=== PATIENT | male | born 1950 | race Caucasian/White ===

== ENCOUNTER → 2016-09-16 | Outpatient (CLI) | payer BC ==
[~2016-09-16] VITALS: Ht 182.9 cm; Wt 249.4 kg
[~2016-09-16] MED LIST: ACET-1311 PO; ASPCH81X PO; BISA10SU38 PR; CHOL200010 PO; DILT120C68 PO; DOCU100C31 PO; ENOX30IN4 SQ; ESCI1TAB10 PO; HYDR25TA4 PO; INSUINJ14 SC; LVMI SQ; ONDA4TAB46 PO; OXYC5TAB PO; PRLSR20 PO; SIME80CH PO
[2016-09-16 15:19] VITALS: BP 138/82; PULSE 78; Ht 182.9 cm; Wt 249.4 kg
== END | disposition home or self-care (01) ==
LOC: C.NEUR 15:03
PROVIDERS: ATTEND Physician Assistant
DX: G47.30 Sleep apnea, unspecified (principal)

== ENCOUNTER → 2017-08-08 | Outpatient (CLI) | payer BC ==
[2017-08-08 12:25] LABS: HEMOGLOBIN A1C 7.7 % (4.5-5.6)
[2017-08-08 12:30] LABS: BLOOD UREA NITROGEN 17 mg/dl (7-18); CALCIUM 8.7 mg/dl (8.5-10.1); CARBON DIOXIDE 27 mmol/L (21-32); CREATININE 1.04 mg/dl (0.60-1.40); GLUCOSE 134 mg/dl (70-99); POTASSIUM 4.3 mmol/L (3.5-5.1); SODIUM 138 mmol/L (136-145)
== END | disposition home or self-care (01) ==
LOC: C.LABBFT 08:37
PROVIDERS: ATTEND Internal Medicine
DX: E11.40 Type 2 diabetes mellitus with diabetic neuropathy, unspecified (principal); I10 Essential (primary) hypertension

== ENCOUNTER 2024-04-26 13:36 | Inpatient (IN) ==
[2024-04-26] MEDS: METOPROLOL TARTRATE 1 MG/ML VIAL IV STA ×2 (14:47→15:53)
--- NOTE | 2024-04-26 15:00 | Emergency Department Note ---
Impression & Plan Atrial fibrillation with rapid ventricular response, Pulmonary vascular congestion ED Provider Note CHIEF COMPLAINT: Heaviness in the chest, shortness of breath HISTORY OF PRESENT ILLNESS: This 73-year-old male patient with past medical history diabetic foot wound, diabetic neuropathy, diabetic retinopathy, obesity, uncontrolled type 2 diabetes, dilatation of the ascending aorta, aortic stenosis, BPH, obstructive sleep apnea, hypertension, hiatal hernia with GERD, dyslipidemia and depression presents to the emergency department with complaints of a heaviness in the chest and a "blockage" that he can cough up sometimes. He states this has been going on for several days and he can no longer deal with it. Patient is complaining of constipation. He is not having any fevers, chills, abdominal pain or vomiting. REVIEW OF SYSTEMS: A review of systems was performed with positives and pertinent negatives listed in the history of present illness. 10 systems were reviewed and are otherwise negative. ALLERGIES: see below MEDICATIONS: see below PMH: see below SOCIAL HISTORY: see below DDx: Cardiac arrhythmia, dehydration, pneumonia, congestive heart failure, atrial fibrillation, electrolyte abnormality, acute coronary syndrome among others. PHYSICAL EXAM: Vital signs reviewed. General: Chronically ill-appearing 73-year-old male, in no significant distress. HEENT: No scleral icterus, PERRLA, neck supple. Moist mucous membranes Cardiovascular: Rapid and irregular Pulmonary: Minimal air movement bilaterally, dry cough. Abdomen: Soft, nontender, nondistended, positive bowel sounds. Musculoskeletal: Atraumatic, minimal peripheral edema. Neurologic: Patient awake alert and oriented x 3, speech is clear Skin: Warm, dry, no rash EMERGENCY DEPARTMENT COURSE/MDM: This patient was evaluated and appeared to be in some respiratory discomfort. Chest x-ray was performed and reveals bilateral pleural effusions. He has noted to be in a rapid atrial fibrillation on the clinical research monitor. IV access was obtained and laboratory work was drawn. EKG reveals rapid atrial fibrillation with a left axis deviation. Patient was medicated with metoprolol 5 mg x 2 with some improvement in heart rate. He was given 40 mg of IV Lasix. Patient was then given 10 mg of IV Cardizem for additional rate control. patient's laboratory work reveals a slight elevation of high sensitivity troponin, likely demand mediated. COVID is positive. Patient's case was discussed with the hospitalist service for admission and further management. Patient was made aware of the plan and agreed. MONITORING: An order for cardiac monitoring was placed and the patient is noted to be in a rapid atrial fibrillation at 153 beats per minute. RADIOLOGY: Chest x-ray: IMPRESSION: 1. Cardiomegaly with interstitial pulmonary edema. 2. Layering pleural effusions with bibasilar consolidation, right greater than left. EKG: To my interpretation reveals rapid atrial fibrillation 150 bpm, left axis deviation with previous inferior and anterior lateral infarct. QTc of 530. PVC versus aberrancy. DISPOSITION:Admission I have personally spent greater than 32 minutes of critical care time in the direct management of this patient. This includes bedside care, interpretation of diagnostic studies, and testing, discussion with consultants, patient, and family members, and other required patient management activities. This 32 minutes is in excess of all separately billable procedures. Past Med/Surg History Problem List (Updated 05/03/24 @ 06:38 by Shireen Cobb MD) Pulmonary vascular congestion (Acute) Atrial fibrillation with rapid ventricular response (Acute) Aspiration into airway Apnea, sleep Ascending aorta dilatation H/O Ross procedure Bicuspid aortic valve Hypoxia COVID-19 Acute CHF New onset a-fib Diabetic ulcer of toe of right foot (Acute) Acquired hammer toe (Chronic) Diabetic ulcer of toe of left foot (Acute) Traumatic open wound of right lower leg (Acute) Traumatic open wound of left lower leg (Acute) Diabetic peripheral neuropathy associated with type 2 diabetes mellitus Non-proliferative diabetic retinopathy, both eyes Pre-ulcerative calluses Loss of protective sensation of skin of foot Personal history of diabetic foot ulcer Obesity History of colon polyps Uncontrolled type 2 diabetes mellitus with insulin therapy (Chronic) Mild dilation of ascending aorta Aortic stenosis (Chronic) follows Dr. Sevilla at [facility] loc w urin obs/LUTS MAGY (obstructive sleep apnea) cpap non-compliant Ulnar neuropathy of right upper extremity (Acute) Hypertension (Chronic) Hiatal hernia (Acute) Gastroesophageal reflux disease (Chronic) Dyslipidemia (Acute) Depression (Chronic) Medical History Vitamin D deficiency History of stroke (~1997) happened during valve surgery 1997> minimal left side weakness > doesn't follow neuro Osteoarthritis Vertigo Hearing loss left ear Ambulatory dysfunction "my legs are stiff" has a limp Allergic rhinitis Surgical History Hx of amputation (~04/2020) left toe / diabetic ulcer Hx of colonoscopy with polypectomy Hx of aortic valve replacement using Ross procedure (~1997) [facility] History of tooth extraction full dentures History of carpal tunnel release right History of appendectomy Hx of fracture of leg (~2015) right leg with repair eu to fall from ladder Hx of elbow surgery left from [facility] Hx of repair of right rotator cuff History of cardiac cath (~1997) @ [facility], no stents, has not seen Dr. Sevilla in a few years History of cholecystectomy Family History Mother Diabetes Valvular heart disease Heart disease Hypertension Brother Coronary heart disease Diabetes Father Hypertension Prostate cancer Denies family history of Ovarian cancer Breast cancer Colorectal cancer Social History Smoking Status: Unknown if ever smoked Tobacco Type: Cigarettes Age Started Using Tobacco: 18; Age Quit Using Tobacco: 44; packs per day: 0.25; Cigarettes Per Day: 1/2 ppd; Second Hand Exposure: No; Do You Dip or Chew Tobacco: No; Hx Alcohol Use: No Hx Substance Use: No Preferred Language: Palestinian Communication Ability: Effective Visual Impairment: Partially Limited Hearing Ability: Normal Blockmason Required: No Beliefs That Will Affect Care: None marital status: Current Living Situation: Spouse current occupational status: retired Feels Safe at Home: Yes Childhood Exposure to Second-Hand Smoke: No Diet: regular caffeine: Yes during the past year weight has: remained stable Dental Care, Regularly: No Physical Activity Frequency: Daily Seatbelt Use: never Assistive Devices: None Allergies Allergies Allergy/AdvReac Type Severity Reaction Status Date / Time metformin Allergy Mild DOESNT Verified 04/26/24 15:41 REMEMBER repaglinide Allergy Mild DOESNT Verified 04/26/24 15:41 REMEMBER simvastatin Allergy Mild DOESNT Verified 04/26/24 15:41 REMEMBER Iodinated Contrast Media Allergy Unknown hives, Verified 04/26/24 15:41 sick to stomach Home Meds Home Medications Medication Instructions Recorded Confirmed aspirin 81 mg tablet 81 mg PO PM #30 tabs 01/06/19 04/26/24 lancets (OneTouch UltraSoft #50 ea 01/06/19 04/21/24 Lancets) pen needle, diabetic 31 gauge x #30 ea 01/06/19 04/21/2416" (BD Ultra-Fine Short Pen Needle) atorvastatin 80 mg tablet 80 mg PO QPM 07/18/23 04/26/24 Previous Rx's Medication Instructions Recorded blood sugar diagnostic #450 ea 05/29/21 ergocalciferol (vitamin D2) 1,250 50,000 unit PO WEEKLY #12 caps 01/06/23 mcg (50,000 unit) capsule diltiazem HCl 240 mg capsule,24 240 mg PO DAILY #90 caps 01/06/24 hr,extended release fluoxetine 20 mg capsule 20 mg PO QAM #90 caps 01/06/24 gabapentin 300 mg capsule 300 mg PO BID 90 days #180 caps 01/06/24 hydrochlorothiazide 25 mg tablet 25 mg PO QAM #90 tabs 01/06/24 lisinopril 40 mg tablet 40 mg PO QAM #90 tabs 01/06/24 pantoprazole 40 mg tablet,delayed 40 mg PO QAM #90 tabs 01/06/24 release flash glucose sensor (FreeStyle #2 ea 01/07/24 Veronika 2 Sensor kit) insulin aspart U-100 100 unit/mL See Rx Instructions subcut UD 90 01/13/24 (3 mL) subcutaneous pen (Novolog days #120 mL FlexPen U-100 Insulin aspart) insulin glargine U-300 conc 300 70 unit (0.2333 mL) subcut BID #42 04/12/24 unit/mL (3 mL) subcutaneous pen mL (Toujeo Max U-300 SoloStar) Results & Data (ED) Vital Signs Vital Signs - 24 hr 04/26/24 13:48 04/26/24 14:47 04/26/24 14:54 Temperature 36.1 C L Temperature Source Temporal Artery Scan Pulse Rate 107 H 154 H Pulse Rhythm Respiratory Rate 20 Blood Pressure 153/74 H 154/105 H Blood Pressure Mean 100 Pulse Oximetry 94 93 Oxygen Delivery Method Room Air Room Air Sepsis Recent Fever Within 48 Hours No Sepsis New/Unexplained Change in Mental Status No Sepsis Action Taken by Nursing No Action Required 04/26/24 14:54 Temperature Temperature Source Pulse Rate 138 H Pulse Rhythm Regular Respiratory Rate 22 Blood Pressure Blood Pressure Mean Pulse Oximetry 93 Oxygen Delivery Method Room Air Sepsis Recent Fever Within 48 Hours Sepsis New/Unexplained Change in Mental Status Sepsis Action Taken by Senior Care Medications Current Medication List: was personally reviewed by me Laboratory Data Attestation: I reviewed the patient's lab results. 05/02/24 07:54 05/02/24 07:54 Lab Results 04/26/24 04/26/24 04/26/24 Range/Units 14:18 14:30 16:24 WBC 10.31 (4.8-10.8) K/ul RBC 5.02 (4.70-6.10) M/uL Hgb 14.4 (14.0-18.0) g/dl Hct 42.4 (42.0-52.0) % MCV 84.5 (80.0-100.0) fL MCH 28.7 (25.0-34.0) pg MCHC 34.0 (32.0-36.0) g/dL RDW Std Deviation 42.4 (36.4-46.3) fL RDW Coeff of Vnadana 13.8 (11.5-14.5) % Plt Count 279 (130-400) K/uL MPV 11.5 (9.4-12.4) fL Immature Gran % (Auto) 0.4 % Neut % (Auto) 69.3 % Lymph % (Auto) 22.8 % Hale % (Auto) 6.5 % Eos % (Auto) 0.8 % Baso % (Auto) 0.2 % Neut # (Auto) 7.15 H (1.40-6.50) K/uL Lymph # (Auto) 2.35 (1.20-3.40) K/uL Hale # (Auto) 0.67 H (0.11-0.59) K/uL Eos # (Auto) 0.08 (0.00-0.50) K/uL Baso # (Auto) 0.02 (0.00-0.20) K/uL Immature Gran # (Auto) 0.04 (0.01-0.20) K/uL PT 11.8 (9.0-12.0) Seconds INR 1.1 (0.9-1.1) APTT 26 (21-31) Seconds PTT Ratio 1.0 Sodium 138 (136-145) mmol/L Potassium 3.7 (3.5-5.1) mmol/L Chloride 102 (98-107) mmol/L Carbon Dioxide 25 (21-32) mmol/L Anion Gap 11 (3-11) BUN 23 (6-23) mg/dl Creatinine 1.02 (0.6-1.4) mg/dl Est Cr Clr Drug Dosing 86.8 ml/min eGFR 78.58 BUN/Creatinine Ratio 22.5 H (10-20) Glucose 95 (70-99(Fasting)) mg/dl Calcium 9.1 (8.6-10.3) mg/dl Total Bilirubin 1.4 H (0.2-1.0) mg/dl AST 41 H (13-39) U/L ALT 50 (7-52) U/L Alkaline Phosphatase 101 (34-104) U/L Troponin I High Sens 26.6 H 27.8 H (0-20) pg/ml C-Reactive Protein 2.83 H (0-0.5) mg/dl Total Protein 7.6 (6.0-8.3) gm/dl Albumin 4.2 (3.4-5.0) gm/dl Globulin 3.4 (2.5-4.0) gm/dl Albumin/Globulin Ratio 1.2 (0.9-2) SARS-CoV-2 (PCR) POSITIVE A (Negative) Influenza Type A (PCR) Negative (Neg) Influenza Type B (PCR) Negative (Neg) RSV (RT-PCR) Negative (Neg) Administered Medications Acetaminophen (Acetaminophen 500 Mg Tab) 500 mg PO Q4H PRN PRN Reason: Fever or headache Stop: 05/26/24 19:31 Last Admin: 04/28/24 22:28 Dose: 500 mg Documented By: Admin: 04/27/24 20:33 Dose: 500 mg Documented By: MACEY Apixaban (Apixaban 5 Mg Tablet) 5 mg PO BID [facility] Stop: 05/30/24 19:59 Last Admin: 05/02/24 20:37 Dose: 5 mg Documented By: Admin: 05/02/24 08:25 Dose: 5 mg Documented By: [facility] Admin: 05/01/24 20:36 Dose: 5 mg Documented By: Admin: 05/01/24 08:08 Dose: 5 mg Documented By: Admin: 04/30/24 20:33 Dose: 5 mg Documented By: AAAmparo Admin: 04/30/24 20:30 Dose: 5 mg Documented By: AAAmparo Aspirin (Aspirin 81 Mg Ectab) 81 mg PO PM ADDI Stop: 05/26/24 20:59 Last Admin: 05/02/24 20:37 Dose: 81 mg Documented By: Admin: 05/01/24 20:36 Dose: 81 mg Documented By: Admin: 04/30/24 20:27 Dose: 81 mg Documented By: Admin: 04/29/24 20:31 Dose: 81 mg Documented By: Admin: 04/28/24 20:11 Dose: 81 mg Documented By: Admin: 04/27/24 20:34 Dose: 81 mg Documented By: Admin: 04/26/24 21:52 Dose: Not Given Documented By: HARMEET Atorvastatin Calcium (Atorvastatin 40 Mg Tab) 80 mg PO QPM ADDI Stop: 05/26/24 20:59 Last Admin: 05/02/24 20:37 Dose: 80 mg Documented By: Admin: 05/01/24 20:36 Dose: 80 mg Documented By: Admin: 04/30/24 20:28 Dose: 80 mg Documented By: Admin: 04/29/24 20:31 Dose: 80 mg Documented By: Admin: 04/28/24 20:11 Dose: 80 mg Documented By: Admin: 04/27/24 20:33 Dose: 80 mg Documented By: Admin: 04/26/24 21:53 Dose: Not Given Documented By: HARMEET Azithromycin (Azithromycin 250 Mg Tab) 500 mg PO QAM ADDI Stop: 05/05/24 08:59 Last Admin: 05/02/24 08:26 Dose: 500 mg Documented By: [facility] Admin: 05/01/24 08:10 Dose: 500 mg Documented By: [facility] Admin: 04/30/24 08:05 Dose: 500 mg Documented By: JOSE Benzonatate (Benzonatate 100 Mg Capsule) 100 mg PO TID ADDI Stop: 05/28/24 13:59 Last Admin: 05/02/24 20:38 Dose: 100 mg Documented By: AAAmparo Admin: 05/02/24 12:04 Dose: 100 mg Documented By: [facility] Admin: 05/02/24 08:25 Dose: 100 mg Documented By: [facility] Admin: 05/01/24 20:36 Dose: 100 mg Documented By: Admin: 05/01/24 12:20 Dose: 100 mg Documented By: Admin: 05/01/24 08:10 Dose: 100 mg Documented By: Admin: 04/30/24 20:28 Dose: 100 mg Documented By: Admin: 04/30/24 14:39 Dose: 100 mg Documented By: K Admin: 04/30/24 08:07 Dose: 100 mg Documented By: Admin: 04/29/24 20:37 Dose: 100 mg Documented By: Admin: 04/29/24 13:36 Dose: 100 mg Documented By: Admin: 04/29/24 10:02 Dose: 100 mg Documented By: Admin: 04/28/24 20:11 Dose: 100 mg Documented By: Admin: 04/28/24 15:55 Dose: 100 mg Documented By: SAMUEL Fluoxetine HCl (Fluoxetine Hcl 20 Mg Cap) 20 mg PO QAM ADDI Stop: 05/27/24 08:59 Last Admin: 05/02/24 08:27 Dose: 20 mg Documented By: Admin: 05/01/24 08:10 Dose: 20 mg Documented By: Admin: 04/30/24 08:06 Dose: 20 mg Documented By: Admin: 04/29/24 10:02 Dose: 20 mg Documented By: MARIA ELENA Admin: 04/28/24 08:33 Dose: 20 mg Documented By: Admin: 04/27/24 09:16 Dose: 20 mg Documented By: SAMUEL Furosemide (Furosemide 20 Mg Tab) 20 mg PO QAM ADDI Stop: 05/30/24 14:44 Last Admin: 05/02/24 08:25 Dose: 20 mg Documented By: Admin: 05/01/24 08:08 Dose: 20 mg Documented By: Admin: 04/30/24 14:55 Dose: 20 mg Documented By: JOSE Gabapentin (Gabapentin 300 Mg Cap) 300 mg PO BID ADDI Stop: 05/26/24 20:59 Last Admin: 05/02/24 20:38 Dose: 300 mg Documented By: AAAmparo Admin: 05/02/24 08:25 Dose: 300 mg Documented By: Admin: 05/01/24 20:36 Dose: 300 mg Documented By: Admin: 05/01/24 08:09 Dose: 300 mg Documented By: Admin: 04/30/24 20:28 Dose: 300 mg Documented By: Admin: 04/30/24 08:06 Dose: 300 mg Documented By: Admin: 04/29/24 20:31 Dose: 300 mg Documented By: Admin: 04/29/24 10:02 Dose: 300 mg Documented By: Admin: 04/28/24 20:11 Dose: 300 mg Documented By: Admin: 04/28/24 08:34 Dose: 300 mg Documented By: Admin: 04/27/24 20:34 Dose: 300 mg Documented By: Admin: 04/27/24 09:16 Dose: 300 mg Documented By: Admin: 04/26/24 21:53 Dose: Not Given Documented By: HARMEET Guaifenesin (Guaifenesin 600 Mg Tabcr) 1,200 mg PO Q12 PRN PRN Reason: Congestion Stop: 05/27/24 20:59 Last Admin: 05/01/24 08:09 Dose: 1,200 mg Documented By: Admin: 04/28/24 20:11 Dose: 1,200 mg Documented By: Admin: 04/27/24 22:05 Dose: 1,200 mg Documented By: MACEY Insulin Aspart (Insulin Aspart Per Unit Charge) 0 units SC ACHS ADDI Stop: 05/26/24 20:59 Last Admin: 05/02/24 20:29 Dose: 8 units Documented By: CHIRAG Co-signed By: SAYRA Admin: 05/02/24 17:22 Dose: 8 units Documented By: NUHA Co-signed By: RENETTA Admin: 05/02/24 11:54 Dose: 18 units Documented By: NUHA Co-signed By: DTT Admin: 05/02/24 08:18 Dose: 6 units Documented By: NUHA Co-signed By: DTT Admin: 05/01/24 20:08 Dose: 13 units Documented By: CHIRAG Co-signed By: EMILY Admin: 05/01/24 16:47 Dose: 13 units Documented By: NUHA Co-signed By: MART Admin: 05/01/24 12:28 Dose: 8 units Documented By: NUHA Co-signed By: ENS Admin: 05/01/24 08:20 Dose: 8 units Documented By: NUHA Co-signed By: MARKY Admin: 04/30/24 20:16 Dose: 3 units Documented By: CHIRAG Co-signed By: HDC Admin: 04/30/24 16:55 Dose: 9 units Documented By: JOSE Co-signed By: AM Admin: 04/30/24 11:58 Dose: 15 units Documented By: K Co-signed By: AM Admin: 04/30/24 08:59 Dose: 11 units Documented By: JOSE Co-signed By: KJS Admin: 04/29/24 22:02 Dose: 9 units Documented By: AAL Co-signed By: MPC Admin: 04/29/24 16:56 Dose: 13 units Documented By: MTN Co-signed By: MS Admin: 04/29/24 12:47 Dose: Not Given Documented By: Admin: 04/29/24 07:53 Dose: Not Given Documented By: Admin: 04/28/24 19:59 Dose: 6 units Documented By: MACEY Co-signed By: BEBETO Admin: 04/28/24 17:24 Dose: 5 units Documented By: SAMUEL Co-signed By: OPHELIA Admin: 04/28/24 12:17 Dose: 5 units Documented By: SAMUEL Co-signed By: LAZARO Admin: 04/28/24 08:33 Dose: Not Given Documented By: Admin: 04/27/24 20:43 Dose: 7 units Documented By: MACEY Co-signed By: ROD Admin: 04/27/24 16:44 Dose: 8 units Documented By: SAMUEL Co-signed By: DTT Admin: 04/27/24 11:58 Dose: 4 units Documented By: SAMUEL Co-signed By: MANUEL Admin: 04/27/24 08:33 Dose: Not Given Documented By: Admin: 04/26/24 20:29 Dose: Not Given Documented By: HARMEET Insulin Glargine (Lantus Per Unit Charge) 15 units SQ BID ADDI Stop: 06/01/24 08:59 Last Admin: 05/02/24 20:30 Dose: 15 units Documented By: CHIRAG Co-signed By: CF Admin: 05/02/24 08:19 Dose: 15 units Documented By: TMH Co-signed By: DTT Levalbuterol HCl (Levalbuterol Hcl 0.63 Mg/3 Ml Neb) 0.63 mg NEB Q6H PRN; Protocol PRN Reason: Shortness Of Breath Or Wheezing Stop: 05/27/24 11:29 Last Admin: 04/29/24 13:03 Dose: 0.63 mg Documented By: Admin: 04/28/24 22:34 Dose: 0.63 mg Documented By: Admin: 04/28/24 09:11 Dose: 0.63 mg Documented By: LYNN Losartan Potassium (Losartan Potassium 25 Mg Tab) 12.5 mg PO QPM [facility] Stop: 05/30/24 20:59 Last Admin: 05/02/24 20:38 Dose: 12.5 mg Documented By: Admin: 05/01/24 20:36 Dose: 12.5 mg Documented By: Admin: 04/30/24 20:28 Dose: 12.5 mg Documented By: CHIRAG Metoclopramide HCl (Metoclopramide Hcl Inj 5 Mg/Ml 2 Ml Vial) 10 mg IV Q6H PRN PRN Reason: Nausea Stop: 05/27/24 08:29 Last Admin: 04/27/24 08:45 Dose: 10 mg Documented By: SAMUEL Metoprolol Succinate (Metoprolol Succ 50mg Ext Rel Tab) 100 mg PO BID [facility] Stop: 06/01/24 20:59 Last Admin: 05/02/24 20:41 Dose: 100 mg Documented By: CHIRAG Ondansetron HCl (Ondansetron Inj 2 Mg/Ml 2 Ml Vial) 4 mg IV Q4H PRN PRN Reason: Nausea Stop: 05/26/24 20:57 Last Admin: 04/27/24 06:03 Dose: 4 mg Documented By: Admin: 04/26/24 21:04 Dose: 4 mg Documented By: HARMEET Pantoprazole Sodium (Pantoprazole 40 Mg Tab) 40 mg PO QAM [facility] Stop: 05/27/24 08:59 Last Admin: 05/02/24 08:25 Dose: 40 mg Documented By: Admin: 05/01/24 08:11 Dose: 40 mg Documented By: Admin: 04/30/24 08:07 Dose: 40 mg Documented By: Admin: 04/29/24 10:02 Dose: 40 mg Documented By: MARIA ELENA Admin: 04/28/24 08:34 Dose: 40 mg Documented By: Admin: 04/27/24 09:16 Dose: 40 mg Documented By: SAMUEL Polyethylene Glycol (Polyethylene (Miralax) 17 Gm Pack) 17 gm PO DAILY PRN PRN Reason: Constipation Stop: 05/27/24 20:46 Last Admin: 04/28/24 20:11 Dose: 17 gm Documented By: Admin: 04/27/24 22:06 Dose: 17 gm Documented By: MACEY Sodium Zirconium Cyclosilicate (Sodium Zirconium Cyclosilicate 10 Gm Packet) 10 gm PO DAILY@1100 [facility] Stop: 06/01/24 10:59 Last Admin: 05/02/24 12:03 Dose: 10 gm Documented By: TM Discontinued Medications Albuterol (Albut/Ipratrop 3mg/0.5mg Neb 3 Ml Vial) 3 ml NEB NOW STA; Protocol Stop: 04/26/24 22:45 Last Admin: 04/26/24 23:00 Dose: Not Given Documented By: ADRIEN Amiodarone HCl/Dextrose (Amiodarone 150mg / 100ml D5w) Confirm Administered Dose 150 mg IV .STK-MED ONE Stop: 04/26/24 19:43 Last Admin: 04/26/24 19:42 Dose: 16.7 mg Documented By: HARMEET Co-signed By: THERESE Amiodarone HCl/Dextrose (Amiodarone 360mg / 200ml D5w) Confirm Administered Dose 360 mg IV .STK-MED ONE Stop: 04/26/24 19:44 Last Admin: 04/26/24 19:52 Dose: 360 mg Documented By: HARMEET Co-signed By: THERESE Azithromycin (Azithromycin 250 Mg Tab) [facility] [place] Stop: 04/29/24 12:01 Last Admin: 04/29/24 12:22 Dose: 500 mg Documented By: MARIA ELENA Bisacodyl (Bisacodyl 10 Mg Supp) 10 mg ID NOW STA Stop: 04/29/24 09:31 Last Admin: 04/29/24 10:00 Dose: 10 mg Documented By: MARIA ELENA Diltiazem HCl (Diltiazem Hcl 5 Mg/Ml 5 Ml Vial) 10 mg IV NOW STA Stop: 04/26/24 16:28 Last Admin: 04/26/24 16:41 Dose: 10 mg Documented By: EDUARDO Co-signed By: RITESH Furosemide (Furosemide 40 Mg/4 Ml Vial) 40 mg IV ONE ONE Stop: 04/26/24 15:37 Last Admin: 04/26/24 15:53 Dose: 40 mg Documented By: EDUARDO Furosemide (Furosemide 40 Mg/4 Ml Vial) 40 mg IV BID ADDI Stop: 05/26/24 20:59 Last Admin: 04/27/24 08:26 Dose: 40 mg Documented By: Admin: 04/26/24 21:57 Dose: 40 mg Documented By: HARMEET Furosemide (Furosemide 40 Mg/4 Ml Vial) 40 mg IV DAILY ADDI Stop: 05/28/24 08:59 Last Admin: 04/28/24 08:34 Dose: 40 mg Documented By: SAMUEL Furosemide (Furosemide 40 Mg/4 Ml Vial) 40 mg IV ONE ONE Stop: 05/02/24 10:58 Last Admin: 05/02/24 12:03 Dose: 40 mg Documented By: NUHA Heparin Sodium (Porcine) (Heparin Sod (Porcine) 1000 Unit/Ml) 7,000 units IV ONE ONE Stop: 04/26/24 17:46 Last Admin: 04/26/24 17:49 Dose: 7,000 units Documented By: EDUARDO Co-signed By: Heparin Sodium/Dextrose (Heparin Iv Adult Wt-Based Standard W/ Initial Bolus Protocol) 1 each IV NOW STA; Protocol Stop: 04/26/24 17:04 Last Admin: 04/26/24 17:52 Dose: Not Given Documented By: EDUARDO Heparin Sodium/Dextrose (Heparin Sodium/Dextrose) 25,000 units in 500 mls @ 29 mls/hr IV .[id number] ADDI; Protocol Stop: 05/26/24 17:29 Last Titration: 04/30/24 17:56 Dose: Infused Documented By: JOSE Co-signed By: MARY Admin: 04/30/24 07:58 Dose: 1,450 units/hr, 29 mls/hr Documented By: JOSE Co-signed By: AM Titration: 04/30/24 07:13 Dose: Infused Documented By: CHIRAG Co-signed By: JOSE Titration: 04/29/24 19:08 Dose: 1,450 units/hr, 29 mls/hr Documented By: MARIA ELENA Co-signed By: CHIRAG Admin: 04/29/24 13:32 Dose: 1,450 units/hr, 29 mls/hr Documented By: MARIA ELENA Co-signed By: DTT Titration: 04/29/24 13:14 Dose: Infused Documented By: MTN Co-signed By: DTT Titration: 04/29/24 10:16 Dose: 1,450 units/hr, 29 mls/hr Documented By: MTN Co-signed By: DTT Titration: 04/29/24 07:11 Dose: 1,450 units/hr, 29 mls/hr Documented By: MTN Co-signed By: DM Admin: 04/28/24 19:59 Dose: 1,450 units/hr, 29 mls/hr Documented By: DM Co-signed By: KRT Titration: 04/28/24 19:59 Dose: Infused Documented By: DM Co-signed By: KRT Titration: 04/28/24 18:57 Dose: 1,450 units/hr, 29 mls/hr Documented By: DM Co-signed By: CM Titration: 04/28/24 06:50 Dose: 1,450 units/hr, 29 mls/hr Documented By: CM Co-signed By: DM Admin: 04/28/24 02:47 Dose: 1,450 units/hr, 29 mls/hr Documented By: DM Co-signed By: KEK Titration: 04/28/24 02:47 Dose: Infused Documented By: DM Co-signed By: KEK Titration: 04/27/24 19:11 Dose: 1,450 units/hr, 29 mls/hr Documented By: DM Co-signed By: CM Admin: 04/27/24 10:49 Dose: 1,450 units/hr, 29 mls/hr Documented By: CM Co-signed By: MJN Titration: 04/27/24 10:49 Dose: Infused Documented By: CM Co-signed By: MJN Titration: 04/27/24 07:00 Dose: 1,450 units/hr, 29 mls/hr Documented By: CR Co-signed By: CM Titration: 04/27/24 01:20 Dose: 1,450 units/hr, 29 mls/hr Documented By: CR Co-signed By: BK Titration: 04/27/24 00:20 Dose: 0 units/hr, 0 mls/hr Documented By: CR Co-signed By: BK Admin: 04/26/24 17:46 Dose: 1,650 units/hr, 33 mls/hr Documented By: BRJ Co-signed By: MR Azithromycin 500 mg/ Sodium (Chloride) 255 mls @ 127.5 mls/hr IV Q24H ADDI Stop: 04/28/24 17:14 Last Infusion: 04/27/24 19:06 Dose: Infused Documented By: Admin: 04/27/24 16:59 Dose: 127.5 mls/hr Documented By: Infusion: 04/26/24 20:31 Dose: Infused Documented By: Admin: 04/26/24 18:31 Dose: 127.5 mls/hr Documented By: EDUARDO Amiodarone HCl/Dextrose (Nexterone / D5w) 360 mg in 200 mls @ 16.667 mls/hr IV .Q12H ADDI Stop: 05/26/24 19:31 Last Infusion: 04/27/24 11:31 Dose: Infused Documented By: SAMUEL Co-signed By: DTT Admin: 04/27/24 07:02 Dose: 0.5 mg/min, 16.7 mls/hr Documented By: HARMEET Co-signed By: SAMUEL Admin: 04/26/24 22:27 Dose: Not Given Documented By: HARMEET Ceftriaxone Sodium (Rocephin) 2,000 mg in 50 mls @ 100 mls/hr IV Q24H ADDI Stop: 05/02/24 03:29 Last Infusion: 05/01/24 04:50 Dose: Infused Documented By: AAAmparo Infusion: 05/01/24 04:34 Dose: 100 mls/hr Documented By: Infusion: 05/01/24 03:26 Dose: 0 mls/hr Documented By: Admin: 05/01/24 03:10 Dose: 100 mls/hr Documented By: Infusion: 04/30/24 05:07 Dose: Infused Documented By: Admin: 04/30/24 04:35 Dose: 100 mls/hr Documented By: Infusion: 04/29/24 03:04 Dose: Infused Documented By: Admin: 04/29/24 02:34 Dose: 100 mls/hr Documented By: Infusion: 04/28/24 03:28 Dose: Infused Documented By: Admin: 04/28/24 03:01 Dose: 100 mls/hr Documented By: Infusion: 04/27/24 04:28 Dose: Infused Documented By: Admin: 04/27/24 03:58 Dose: 100 mls/hr Documented By: CR Methylprednisolone 40 mg/ (Syringe) 0.64 mls @ 1.5 mls/min IV Q8H ADDI Stop: 05/29/24 08:29 Last Admin: 05/02/24 08:23 Dose: 1.5 mls/min Documented By: Admin: 05/01/24 23:34 Dose: 1.5 mls/min Documented By: Admin: 05/01/24 17:02 Dose: 1.5 mls/min Documented By: Admin: 05/01/24 08:07 Dose: 1.5 mls/min Documented By: Admin: 04/30/24 23:30 Dose: 1.5 mls/min Documented By: Admin: 04/30/24 16:33 Dose: 1.5 mls/min Documented By: Admin: 04/30/24 08:05 Dose: 1.5 mls/min Documented By: Admin: 04/29/24 23:32 Dose: 1.5 mls/min Documented By: Admin: 04/29/24 17:02 Dose: 1.5 mls/min Documented By: MARIA ELENA Admin: 04/29/24 10:00 Dose: 1.5 mls/min Documented By: MARIA ELENA Digoxin 250 mcg/ Syringe 10 mls @ 2 mls/min IV NOW ONE Stop: 04/29/24 12:04 Last Admin: 04/29/24 12:22 Dose: 2 mls/min Documented By: MARIA ELENA Digoxin 250 mcg/ Syringe 10 mls @ 2 mls/min IV NOW STA Stop: 05/01/24 09:41 Last Admin: 05/01/24 11:05 Dose: 2 mls/min Documented By: NUHA Metoprolol Succinate (Metoprolol Succ 25mg Ext Rel Tab) 75 mg PO BID ADDI Stop: 05/30/24 20:59 Last Admin: 05/02/24 08:25 Dose: 75 mg Documented By: Admin: 05/01/24 20:36 Dose: 75 mg Documented By: Admin: 05/01/24 08:08 Dose: 75 mg Documented By: Admin: 04/30/24 20:32 Dose: 75 mg Documented By: CHIRAG Metoprolol Tartrate (Metoprolol Tartrate 1 Mg/Ml Vial) 5 mg IV NOW STA Stop: 04/26/24 14:45 Last Admin: 04/26/24 14:47 Dose: 5 mg Documented By: Metoprolol Tartrate (Metoprolol Tartrate 1 Mg/Ml Vial) 5 mg IV NOW STA Stop: 04/26/24 15:37 Last Admin: 04/26/24 15:53 Dose: 5 mg Documented By: EDUARDO Metoprolol Tartrate (Metoprolol Tartrate 25 Mg Tab) 12.5 mg PO Q6 ADDI Stop: 05/27/24 11:59 Last Admin: 04/27/24 12:23 Dose: 12.5 mg Documented By: SAMUEL Metoprolol Tartrate (Metoprolol Tartrate 25 Mg Tab) 12.5 mg PO Q6H [facility] Stop: 05/27/24 17:59 Last Admin: 04/28/24 05:15 Dose: 12.5 mg Documented By: Admin: 04/27/24 23:20 Dose: 12.5 mg Documented By: Admin: 04/27/24 18:36 Dose: 12.5 mg Documented By: SAMUEL Metoprolol Tartrate (Metoprolol Tartrate 25 Mg Tab) 25 mg PO Q6H ADDI Stop: 04/30/24 13:59 Last Admin: 04/30/24 12:28 Dose: 25 mg Documented By: Admin: 04/30/24 05:00 Dose: 25 mg Documented By: Admin: 04/29/24 23:33 Dose: 25 mg Documented By: Admin: 04/29/24 18:50 Dose: 25 mg Documented By: MARIA ELENA Admin: 04/29/24 12:23 Dose: 25 mg Documented By: MARIA ELENA Admin: 04/29/24 06:20 Dose: 25 mg Documented By: Admin: 04/29/24 00:18 Dose: 25 mg Documented By: Admin: 04/28/24 17:24 Dose: 25 mg Documented By: Admin: 04/28/24 12:17 Dose: 25 mg Documented By: SAMUEL Miscellaneous (Carbohydrates For Hypoglycemia ) 15 - 30 gm PO ONCE ONE Stop: 04/28/24 06:43 Last Admin: 04/28/24 06:43 Dose: 15 gm Documented By: DM Polyethylene Glycol/Electrolytes (Lavage Solution 4000ml) 4 dose PO TODAY@1200 ADDI Stop: 05/01/24 00:00 Last Admin: 04/30/24 12:25 Dose: 4 dose Documented By: JOSE Potassium Chloride (Potassium Chloride Crtab 20 Meq Tabcr) 20 meq PO ONE ONE Stop: 04/29/24 08:03 Last Admin: 04/29/24 10:00 Dose: 20 meq Documented By: MTN Discharge Plan Visit Data Chief Complaint: Shortness of Breath/Dyspnea Stated Complaint: THINKS HE HAS COVID, SOB COUGH, VOMIT ED Provider: Shireen Cobb Discharge Problem: Atrial fibrillation with rapid ventricular response, Pulmonary vascular congestion Patient Disposition: Admitted As Inpatient Discharge Instructions Interventions: ED Discharge Assessment Last Done: 04/26/24 17:25
[2024-04-26 15:01] LABS: Basophils # (auto) 0.02 K/uL (0.00-0.20); Basophils % (auto) 0.2 %; Eosinophils # (auto) 0.08 K/uL (0.00-0.50); Eosinophils % (auto) 0.8 %; Hematocrit (blood only) 42.4 % (42.0-52.0); Hemoglobin 14.4 g/dl (14.0-18.0); Immature Granulocytes # (auto) 0.04 K/uL (0.01-0.20); Immature Granulocytes % (auto) 0.4 %; Lymphocytes # (auto) 2.35 K/uL (1.20-3.40); Lymphocytes % (auto) 22.8 %; Mean Corpuscular Hemoglobin 28.7 pg (25.0-34.0); Mean Corpuscular Volume 84.5 fL (80.0-100.0); Mean Platelet Volume 11.5 fL (9.4-12.4); Monocytes # (auto) 0.67 K/uL (0.11-0.59); Monocytes % (auto) 6.5 %; Neutrophils # (auto) 7.15 K/uL (1.40-6.50); Neutrophils % (auto) 69.3 %; Platelet Count 279 K/uL (130-400); RDW Coefficient of Variation 13.8 % (11.5-14.5); RDW Standard Deviation 42.4 fL (36.4-46.3); Red Blood Count 5.02 M/uL (4.70-6.10); White Blood Count 10.31 K/ul (4.8-10.8)
[2024-04-26 15:11] LABS: Albumin Globulin Ratio 1.2 (0.9-2); Albumin Level 4.2 gm/dl (3.4-5.0); BUN Creatinine Ratio 22.5 (10-20); Bilirubin,Total 1.4 mg/dl (0.2-1.0); Calcium 9.1 mg/dl (8.6-10.3); Creatinine Clr Calc Pharmacy 86.8 ml/min; Globulin 3.4 gm/dl (2.5-4.0); Potassium 3.7 mmol/L (3.5-5.1); Total Protein 7.6 gm/dl (6.0-8.3)
[2024-04-26 15:17] LABS: Troponin I High Sensitivity 26.6 pg/ml (0-20)
--- NOTE | 2024-04-26 15:18 | XRay Report ---
XR chest 1V portable HISTORY: 73 years-old Male Chest pain, nonspecific COMPARISON: 05/14/2022 TECHNIQUE: AP view of the chest FINDINGS: Cardiac silhouette is enlarged. Median sternotomy with pulmonary vascular congestion and interstitial coarsening. Small pleural effusions with bibasilar opacities, right greater than left. Bones appear grossly intact. Surgical anchors of the right humeral head. IMPRESSION: 1. Cardiomegaly with interstitial pulmonary edema. 2. Layering pleural effusions with bibasilar consolidation, right greater than left. ACT 112: Negative or not required by law. The above report was generated using voice recognition software. It may contain grammatical, syntax o r spelling errors. Electronically signed by: Domingo Cruz M.D. 04/26/2024 3:17 PM
[2024-04-26 15:23] LABS: INR 1.1 (0.9-1.1); Partial Thromboplastin Time 26 Seconds (21-31); Prothrombin Time 11.8 Seconds (9.0-12.0)
[2024-04-26 15:31] LABS: Influenza A virus by PCR Negative (Neg); Influenza B virus by PCR Negative (Neg); RSV by PCR Negative (Neg); SARS CoV2 RNA(COVID-19) Ceph POSITIVE (Negative)
[2024-04-26] MEDS: FUROSEMIDE 40 MG/4 ML VIAL IV ONE (15:53)
[2024-04-26] MEDS: dilTIAZem HCl 5 MG/ML 5 ML VIAL IV STA (16:41)
[2024-04-26] MEDS ORDERED: AZITHROMYCIN 500 MG VIAL IV SCH (17:15)
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
[2024-04-26 17:37] LABS: C Reactive Protein 2.83 mg/dl (0-0.5)
[2024-04-26] MEDS: HEPARIN SODIUM/DEXTROSE 25,000 UNITS/500 ML BAG IV SCH (17:46)
[2024-04-26] MEDS: HEPARIN SOD (PORCINE) 1000 UNIT/ML IV ONE (17:49)
[2024-04-26] MEDS: Heparin IV Adult Wt-Based Standard w/ INITIAL Bolus Protocol IV STA (17:52)
[2024-04-26] MEDS: AZITHROMYCIN 500 MG in SODIUM CHLORIDE 0.9% 250 ML IV SCH (18:31)
[2024-04-26] MEDS ORDERED: 0.2 MICRON FILTER SET 1 EACH IV ONE (19:32)
[2024-04-26] MEDS: AMIODARONE 150MG / 100ML D5W IV ONE (19:42)
[2024-04-26] MEDS: AMIODARONE 360MG / 200ML D5W IV ONE (19:52)
[2024-04-26] MEDS: INSULIN ASPART PER UNIT CHARGE SC SCH (20:29)
[2024-04-26] MEDS ORDERED: NON-FORMULARY MEDICATION (Insulin Glargine U-300 Conc [Toujeo Max U-300 Solostar] 300 unit SQ SCH (21:00)
[2024-04-26] MEDS: ONDANSETRON INJ 2 MG/ML 2 ML VIAL IV PRN (21:04)
[2024-04-26] MEDS: ASPIRIN 81 MG ECTAB PO SCH (21:52)
[2024-04-26] MEDS: ATORVASTATIN 40 MG TAB PO SCH (21:53)
[2024-04-26] MEDS: GABAPENTIN 300 MG CAP PO SCH (21:53)
[2024-04-26] MEDS: FUROSEMIDE 40 MG/4 ML VIAL IV SCH (21:57)
[2024-04-26] MEDS: AMIODARONE / D5W 360 MG/200 ML BAG IV SCH (22:27)
[2024-04-26] MEDS: ALBUT/IPRATROP 3MG/0.5MG NEB 3 ML VIAL NEB STA (23:00)
--- NOTE | 2024-04-26 23:02 | Communication Note ---
Date of Service: April 26, 2024 At 2045 patient complains of nausea and having dry heaves. Zofran ordered. Patient's pulse ox decreased to 80% after these dry heaves episodes. Resp iratory place patient on 7 L of high flow and patient which improved patient's saturation to 90s. VBG ordered which showed a pH of 7.35. Troponin was 28.4 which is no significant change from 1624 today. Magnesium of 1.8. Chest x-ray showed bronchitis with pneumonitis and bilateral lower lobe infiltrates. Patient is already on azithromycin. Will also start on ceftriaxone. DuoNebs ordered, though DC'd by respiratory given his elevated heart rate. May consider once A-fib with RVR has resolved. ABG and troponin added onto morning labs.
[2024-04-26 23:23] LABS: Base Excess VBG -2.4 mEq/L; HCO3 VBG 23 mmol/L; Oxygen Saturation VBG 87.4 %; PCO2 VBG 42 mmHg (38-50); PO2 VBG 58 mmHg; pH VBG 7.35 (7.36-7.41)
[2024-04-26 23:44] LABS: Magnesium 1.8 mg/dl (1.7-2.4)
[2024-04-26 23:52] LABS: Troponin I High Sensitivity 28.4 pg/ml (0-20)
[2024-04-27 00:17] LABS: ANTI-Xa, UFH(UnfractionatedHep 0.86 IU/ml (0.3-0.7)
--- NOTE | 2024-04-27 01:21 | XRay Report ---
Exam(s): XR CXR 1 VIEW EXAM: XR Chest, 1 View CLINICAL HISTORY: Reason for exam: SOB. TECHNIQUE: Frontal view of the chest. COMPARISON: Prior chest x-ray from April 26, 2024. FINDINGS: Lungs: Bronchitis with increased interstitial opacities and dense patchy opacities at the lung bases. Pleural space: Blunting of the right costophrenic angle concerning for small pleural effusion. No pneumothorax. Heart: Cardiomegaly. Mediastinum: Unremarkable. Normal mediastinal contour. Bones/joints: Status post median sternotomy with sternal wires intact. No acute fracture. IMPRESSION: Bronchitis with pneumonitis and bilateral lower lobe infiltrates. Electronically signed by: Estelle Perales MD 04/27/24 01:20 AM
[2024-04-27] MEDS: cefTRIAXone SODIUM 2,000 MG/50 ML BAG IV SCH (03:58)
--- NOTE | 2024-04-27 06:01 | Electrocardiogram Report ---
Test Reason : Blood Pressure : */* mmHG Vent. Rate : 150 BPM Atrial Rate : 166 BPM P-R Int : * ms QRS Dur : 106 ms QT Int : 336 ms P-R-T Axes : * -53 126 degrees QTcB Int : 530 ms Atrial fibrillation with rapid ventricular response with premature ventricular or aberrantly conducte d complexes Left axis deviation Inferior infarct (cited on or before 11-Aug-2002) Anterolateral infarct (cited on or before 18-Feb-2016) Abnormal ECG When compared with ECG of 18-Feb-2016 04:17, Atrial fibrillation has replaced Sinus rhythm Questionable change in initial forces of Lateral leads QRS duration has increased Confirmed by Quoc Kwon ([id number]) on 04/27/2024 6:00:39 AM Referred By: Confirmed By: Quoc Kwon
[2024-04-27 07:46] LABS: Base Excess VBG 2.7 mEq/L; HCO3 VBG 30 mmol/L; Oxygen Saturation VBG < 60.0 %; PCO2 VBG 59 mmHg (38-50); PO2 VBG < 20 mmHg; pH VBG 7.32 (7.36-7.41)
[2024-04-27 07:54] LABS: Hematocrit (blood only) 39.7 % (42.0-52.0); Hemoglobin 13.1 g/dl (14.0-18.0); Mean Corpuscular Hemoglobin 28.3 pg (25.0-34.0); Mean Corpuscular Volume 85.7 fL (80.0-100.0); Mean Platelet Volume 11.9 fL (9.4-12.4); Platelet Count 249 K/uL (130-400); RDW Standard Deviation 43.7 fL (36.4-46.3); Red Blood Count 4.63 M/uL (4.70-6.10); White Blood Count 10.68 K/ul (4.8-10.8)
[2024-04-27 08:13] LABS: BUN Creatinine Ratio 22.8 (10-20); Calcium 8.6 mg/dl (8.6-10.3); Creatinine Clr Calc Pharmacy 64.5 ml/min; Potassium 3.9 mmol/L (3.5-5.1)
[2024-04-27 08:14] LABS: ANTI-Xa, UFH(UnfractionatedHep 0.53 IU/ml (0.3-0.7)
[2024-04-27 08:20] LABS: Troponin I High Sensitivity 32.7 pg/ml (0-20)
[2024-04-27] MEDS: METOCLOPRAMIDE HCL INJ 5 MG/ML 2 ML VIAL IV PRN (08:45)
[2024-04-27] MEDS: FLUoxetine HCL 20 MG CAP PO SCH (09:16)
[2024-04-27] MEDS: PANTOprazole 40 MG TAB PO SCH (09:16)
--- NOTE | 2024-04-27 10:35 | Hospitalist Progress Note ---
Date of Service April 27, 2024 Assessment & Plan (1) New onset a-fib: Plan: Patient presents to the hospital with palpitation, worsening shortness of breath, leg swelling Found to be in A-fib with RVR, probably new onset Heart rate in the 130s to 150s in the ED, received a dose of Cardizem However blood pressure is now soft, will start IV amiodarone Obtain 2D echo, TSH Heparin by weight Consult cardiology (2) Acute CHF: Plan: Presents to the hospital with, orthopnea, PND leg swelling loss of congestive changes seen on x-ray BNP 290, and 2D echo pending Continue IV Lasix 40 mg twice daily Monitor input and output, daily weights Consult cardiology (3) COVID-19: Plan: Diagnosed about a week ago, followed outpatient with the PCP who prescribed Paxlovid overnight, desaturated Azithromycin empirically in case of bacterial superinfection, add ceftriaxone CRP mildly elevated, sputum culture, blood culture pending Urine Legionella antigen strep, mycoplasma pending (4) Diabetic peripheral neuropathy associated with type 2 diabetes mellitus: Plan: 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 Recent visit was about 10 days ago Will resume home insulin regimen Add insulin sliding scale (5) Diabetic ulcer of toe of left foot: Plan: Follows up with podiatry outpatient And also wound care Consult wound (6) Hypoxia: Plan: Most likely due to fluid overload and PNA continue oxygen suopplemenation, wean as tolerated Plan Admit to PCU with telemetry Full code DVT prophylaxis heparin Admission and Anticipated Discharge Date Admission Date: April 26, 2024 Subjective patient seen and examined, says sob is better Review of Systems Review of Systems: All systems reviewed are negative, apart from the ones contained in the history. Physical Exam Physical Exam: The patient is awake, alert and oriented 3, well developed and well nourished, normocephalic and atraumatic, lying in bed and in no acute distress. HEENT--PERRL, EOMI, mucous membranes and oropharynx mildly dry Neck--supple. No JVD. No bruits. Thyroid normal, trachea midline, no adenopathy. Heart--normal S1 and S2. No murmurs, rubs or gallops. Lungs--clear bilaterally, no respiratory distress, no accessory muscle use. Abdomen--normal bowel sounds and soft. Extremities--no cyanosis or clubbing. bilateral leg edema Dermatologic--normal skin turgor, normal color, no abnormal lymph nodes, no rash. Neurologic--cranial nerves II through XII grossly intact. Rheumatologic--normal range of motion. Psychiatric--normal affect. Results & Data Results & Data Vital Signs (Past 12 Hours) Vital Signs Temp Pulse Resp BP Pulse Ox O2 Del Method O2 Flow Rate 04/27/24 08:36 Nasal Cannula 2 04/27/24 03:16 98.1 F 96 H 18 114/60 96 High Flow Nasal Cannula 7 04/26/24 23:10 99.0 F 120 H 18 150/72 H 95 High Flow Nasal Cannula 7 PG Care Time/CCT Total # of Minutes Spent Total Time Spent with Patient: Total time spent is greater than 50% in coordination of care (as documented) at patient's floor/unit and/or counseling patient: Coding Level of Care Code 71792 SUB INP/OBS CARE 2/35MIN Diagnoses New onset a-fib I48.91 Acute CHF I50.9 COVID-19 U07.1 Diabetic peripheral neuropathy associated with type 2 diabetes mellitus E11.42 Diabetic ulcer of toe of left foot associated with type 2 diabetes mellitus, limited to breakdown of skin E11.621; L97.521 Diabetes mellitus type: type 2 Non-pressure ulcer stage: limited to breakdown of skin Hypoxia R09.02 Time Spent (min) 35 (5) Diabetic ulcer of toe of left foot Diabetes mellitus type: type 2 Non-pressure ulcer stage: limited to breakdown of skin Qualified Code(s): E11.621 - Type 2 diabetes mellitus with foot ulcer; L97.521 - Non-pressure chronic ulcer of other part of left foot limited to breakdown of skin
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
[2024-04-27] MEDS: METOPROLOL TARTRATE 25 MG TAB PO SCH ×2 (12:23→16:59)
[2024-04-27] MEDS: ACETAMINOPHEN 500 MG TAB PO PRN (20:33)
[2024-04-27] MEDS: guaiFENesin 600 MG TABCR PO PRN (22:05)
[2024-04-27] MEDS: POLYETHYLENE (MIRALAX) 17 GM PACK PO PRN (22:06)
[2024-04-28] MEDS: CARBOHYDRATES FOR HYPOGLYCEMIA PO ONE (06:43)
[2024-04-28] MEDS ORDERED: DEXTROSE 50% 50 ML SYRINGE IV PRN (07:00)
[2024-04-28] MEDS ORDERED: GLUCOSE 40% GEL 15 GM TUBE PO PRN (07:00)
[2024-04-28] MEDS ORDERED: GLUCOSE 10 TAB/TUBE PO PRN (07:00)
[2024-04-28] MEDS ORDERED: GLUCAGON FOR INJ 1 MG VIAL SQ PRN (07:00)
[2024-04-28] MEDS: FUROSEMIDE 40 MG/4 ML VIAL IV SCH (08:34)
[2024-04-28 08:41] LABS: BUN Creatinine Ratio 25.7 (10-20); Calcium 8.4 mg/dl (8.6-10.3); Creatinine Clr Calc Pharmacy 57.7 ml/min
[2024-04-28 08:49] LABS: ANTI-Xa, UFH(UnfractionatedHep 0.43 IU/ml (0.3-0.7)
[2024-04-28] MEDS: LEVALBUTEROL HCL 0.63 MG/3 ML NEB NEB PRN (09:11)
--- NOTE | 2024-04-28 11:02 | Cardiology Progress Note ---
Date of Service April 28, 2024 Assessment & Plan (1) COVID-19: (2) New onset a-fib: (3) Acute CHF: (4) Bicuspid aortic valve: (5) H/O Ross procedure: (6) Ascending aorta dilatation: (7) Apnea, sleep: Plan Complex 73-year-old male admitted with COVID-19 pneumonia, new onset acute decompensated systolic congestive heart failure with LVEF 25-30%, and new onset atrial fibrillation with rapid ventricular response of unknown duration. [id number] Score 7 points. Borderline hypotensive response to IV diltiazem noted in ER. Amiodarone prescribed on admission, discontinued due to prolonged QT interval. Rates likely being driven by acute pulmonary illness. Volume status appears normovolemic following administered IV furosemide to date. Recommendations: * Increase metoprolol tartrate to 25 mg every 6 hours * Consideration for digoxin pending response to titration of Lopressor * Continue IV heparin with eventual transition to oral Eliquis at discharge. * Hold further IV diuresis. * Add/transition to GDMT as hemodynamics permit * Monitor fluid balance, GFR, and electrolytes daily. * Continue Xopenex nebulizer treatments and Mucinex, ? IV steroids * Continue supplemental oxygen therapy * Maintain telemetry Admission and Anticipated Discharge Date Admission Date: April 26, 2024 Supervising Physician Co-Signing Physician Notes I have personally performed a history and physical examination on the patient. I have reviewed the advance practitioner's documentation, and I agree with, and take responsibility for the plan of care. 73-year-old male with complex cardiovascular history noted above presents with COVID-19 pneumonia, heart failure, and new onset atrial fibrillation with rapid ventricular response. Heart rate mildly improved with addition of metoprolol 12.5 mg every 6 hours. Amiodarone discontinued secondary to QT interval. Hypotensive response to IV diltiazem documented in the ER. Overall patient clinical status minimally improved. Continues to note cough with scant sputum production. Creatinine trending upward ti 1.5 after dose of IV furosemide. Recommendations: Titrate metoprolol to 25 mg every 6 hours. Continue IV heparin with transition to oral Eliquis at discharge. Consider addition of low-dose digoxin pending clinical response to titration of beta-alex therapy. Hold additional diuresis today. Monitor fluid balance, GFR, and electrolytes daily. Consider additional Lasix in a.m. 04/29/2024. Supportive care, treatment of COVID-19 pneumonia as per hospitalist. Possible aspiration noted. Speech eval pending. Margarito Werner DO [facility] Subjective Patient seen and examined. Chart, medications, and telemetry reviewed. May be a little better today though still feels "rough." Chest feels tight, cough with thick mucous that is very difficult to expectorate. No overt palpitations. No orthopnea, PND, or significant peripheral edema. Review of Systems Review of Systems: Complete Review of Systems is as stated above, negative, or noncontributory. Physical Exam Physical Exam: General: A&Ox3. HENT: Normocephalic. Atraumatic. Eyes: PER. Conjunctiva pink, sclera injected Neck: No JVD. Heart: Irregularly irregular at 120 bpm Lungs: Decreased. Diminished. Scattered rhonchi and faint expiratory wheezing. Abdomen: +BS. Soft. Nontender. No masses or organomegaly. Extremities: No significant edema. Limited neurological examination is without focal deficits. Pulses: Posterior tibial=1/4. Results & Data Vital Signs (Past 12 Hours) Vital Signs Temp Pulse Resp BP Pulse Ox O2 Del Method O2 Flow Rate 04/28/24 09:11 108 H 22 91 Nasal Cannula 7 04/28/24 08:38 High Flow Nasal Cannula 7 04/28/24 07:30 36.8 C 102 H 16 118/63 97 High Flow Nasal Cannula 7 04/28/24 03:59 36.7 C 114 H 18 120/80 94 High Flow Nasal Cannula 7 04/27/24 23:06 36.7 C 108 H 18 127/78 96 High Flow Nasal Cannula 7 Laboratory Results Comprehensive Metabolic Panel 04/28/24 Range/Units 08:08 Sodium 135 L (136-145) mmol/L Potassium 4.0 (3.5-5.1) mmol/L Chloride 96 L (98-107) mmol/L Carbon Dioxide 30 (21-32) mmol/L BUN 39 H (6-23) mg/dl Creatinine 1.52 H (0.6-1.4) mg/dl Glucose 128 H (70-99(Fasting)) mg/dl Calcium 8.4 L (8.6-10.3) mg/dl Intake and Output 12/17/24 12/18/24 12/18/24 22:59 06:59 14:59 Intake Total 497.633 / 1360.499 387.85 / 1360.499 Balance 497.633 / 1360.499 387.85 / 1360.499 Intake: IV 497.633 / 1360.499 387.85 / 1360.499 Azithromycin 500 mg In Sodium 255 / 255 Chloride 0.9% 250 ml @ 127.5 mls/hr IV Q24H [facility] Rx#:[id number] Heparin Sodium/Dextrose 25,000 242.633 / 855.499 337.85 / 855.499 units In 500 ml @ 1,450 UNITS/ HR 29 mls/hr IV .[id number] [facility] Rx #:[id number] cefTRIAXone SODIUM 2,000 mg In 50 / 50 50 ml @ 100 mls/hr IV Q24H [facility] Rx#:[id number] Other 0 / 0 Other: Other Intake Source 0 # Unmeasured Voids 2 Diagnostic Findings April 27, 2024 TTE: Atrial fibrillation with a rapid ventricular response. Severely reduced LV systolic function. Mildly dilated LV. LVEF 25 to 30%. Septal motion consistent with conduction abnormality. Overall, severe diffuse hypokinesis. Moderately dilated left atrium. Status post Ross procedure. No hemodynamically significant valvular aortic stenosis. Mild aortic regurgitation. Moderate mitral regurgitation. Severe tricuspid regurgitation. Estimated systolic pulmonary pressure 50 mmHg. Dilated IVC with normal inspiratory variation suggesting right atrial pressure of 8 mmHg. Telemetry: Atrial fibrillation with a rapid ventricular response with aberrantly conducted complexes and occasional premature ventricular complex
--- NOTE | 2024-04-28 11:28 | Hospitalist Progress Note ---
Date of Service April 28, 2024 Assessment & Plan (1) New onset a-fib: Plan: Patient presents to the hospital with palpitation, worsening shortness of breath, leg swelling Found to be in A-fib with RVR, probably new onset 2 D ECHO shows EF 25-30% Heparin by weight, tranasition to PO Eliquis prior to discharge Consult cardiology (2) Acute CHF: Plan: Acute HF wrEF Presents to the hospital with, orthopnea, PND leg swelling loss of congestive changes seen on x-ray BNP 290, 2D echo shows EF 25-30% Continue IV Lasix 40 mg daily Monitor input and output, daily weights Consult cardiology, appreciate recs (3) COVID-19: Plan: With hypoxia Diagnosed about a week ago, followed outpatient with the PCP who prescribed Paxlovid overnight, desaturated Azithromycin empirically in case of bacterial superinfection, add ceftriaxone CRP mildly elevated, sputum culture, blood culture pending Urine Legionella antigen strep, mycoplasma pending Now on 7l of oxygen wean as tolerated (4) Diabetic peripheral neuropathy associated with type 2 diabetes mellitus: Plan: Follows up with ux manager outpatient Recent visit was about 10 days ago Will resume home insulin regimen Add insulin sliding scale (5) Diabetic ulcer of toe of left foot: Plan: Follows up with podiatry outpatient And also wound care Consult wound (6) Hypoxia: Plan: Most likely due to fluid overload and PNA continue oxygen suopplemenation, wean as tolerated (7) Aspiration into airway: Plan: per RN, patient started coughing yesterday while eating its possible he aspirated will consult speech recheck chest x ray Plan Admit to PCU with telemetry Full code DVT prophylaxis heparin Admission and Anticipated Discharge Date Admission Date: April 26, 2024 Subjective patient seen and examined, feels a little better, but still struggling to breath and still coughing Review of Systems Review of Systems: All systems reviewed are negative, apart from the ones contained in the history. Physical Exam Physical Exam: The patient is awake, alert and oriented 3, well developed and well nourished, normocephalic and atraumatic, lying in bed and in no acute distress. HEENT--PERRL, EOMI, mucous membranes and oropharynx mildly dry Neck--supple. No JVD. No bruits. Thyroid normal, trachea midline, no adenopathy. Heart--normal S1 and S2. No murmurs, rubs or gallops. Lungs--clear bilaterally, no respiratory distress, no accessory muscle use. Abdomen--normal bowel sounds and soft. Extremities--no cyanosis or clubbing. bilateral leg edema Dermatologic--normal skin turgor, normal color, no abnormal lymph nodes, no rash. Neurologic--cranial nerves II through XII grossly intact. Rheumatologic--normal range of motion. Psychiatric--normal affect. Results & Data Results & Data Vital Signs (Past 12 Hours) Vital Signs Temp Pulse Resp BP Pulse Ox O2 Del Method O2 Flow Rate 04/28/24 09:11 108 H 22 91 Nasal Cannula 7 04/28/24 08:38 High Flow Nasal Cannula 7 04/28/24 07:30 98.2 F 102 H 16 118/63 97 High Flow Nasal Cannula 7 04/28/24 03:59 98.1 F 114 H 18 120/80 94 High Flow Nasal Cannula 7 PG Care Time/CCT Total # of Minutes Spent Total Time Spent with Patient: Total time spent is greater than 50% in coordination of care (as documented) at patient's floor/unit and/or counseling patient: Coding Level of Care Code 91962 SUB INP/OBS CARE 2/35MIN Diagnoses New onset a-fib I48.91 Acute CHF I50.9 COVID-19 U07.1 Diabetic peripheral neuropathy associated with type 2 diabetes mellitus E11.42 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
[2024-04-28] MEDS: METOPROLOL TARTRATE 25 MG TAB PO SCH (12:17)
--- NOTE | 2024-04-28 12:42 | XRay Report ---
XR chest 1V portable CLINICAL HISTORY: follow up COMPARISON STUDY: Chest radiograph April 26, 2024. FINDINGS: There is no pneumothorax. Small bilateral pleural effusions, right larger than left, are un changed. There are associated bibasilar opacities. Pulmonary edema persists. Cardiomegaly is again no tonie. Mediastinal contours are stable. Status post median sternotomy. IMPRESSION: 1. Cardiomegaly with persistent pulmonary edema. 2. Small bilateral pleural effusions with associated bibasilar opacities which could reflect pneumoni a or atelectasis. Continued radiographic follow-up to ensure resolution is recommended. ACT 112: Negative or not required by law. Electronically signed by: Zack Kumari M.D. 04/28/2024 12:40 PM
[2024-04-28] MEDS: BENZONATATE 100 MG CAPSULE PO SCH (15:55)
[2024-04-29 07:41] LABS: BUN Creatinine Ratio 30.3 (10-20); Calcium 8.6 mg/dl (8.6-10.3); Creatinine Clr Calc Pharmacy 66.5 ml/min; Potassium 3.7 mmol/L (3.5-5.1)
[2024-04-29 07:45] LABS: ANTI-Xa, UFH(UnfractionatedHep 0.55 IU/ml (0.3-0.7)
[2024-04-29] MEDS ORDERED: methylPREDNISolone 125 MG/2 ML VIAL IV SCH (08:00)
[2024-04-29] MEDS: methylPREDNISolone 40 MG in SYRINGE 0 ML IV SCH (10:00)
[2024-04-29] MEDS: bisacodyL 10 MG SUPP PR STA (10:00)
[2024-04-29] MEDS: POTASSIUM CHLORIDE CRTAB 20 MEQ TABCR PO ONE (10:00)
--- NOTE | 2024-04-29 11:27 | Cardiology Progress Note ---
Date of Service April 29, 2024 Assessment & Plan (1) COVID-19: (2) New onset a-fib: (3) Acute CHF: (4) Bicuspid aortic valve: (5) H/O Ross procedure: (6) Ascending aorta dilatation: (7) Apnea, sleep: Plan Complex 73-year-old male admitted with COVID-19 pneumonia, new onset acute decompensated systolic congestive heart failure with LVEF 25-30%, and new onset atrial fibrillation with rapid ventricular response of unknown duration. [id number] Score 7 points. Hypotensive response to IV diltiazem noted in ER. Amiodarone initially prescribed, discontinued due to prolonged QT interval. Rates likely being driven by acute pulmonary illness. Volume remains compensated Recommendations: * Continue metoprolol tartrate 25 mg every 6 hours * One time dose of IV digoxin today * Continue IV heparin with eventual transition to oral Eliquis at discharge. * GDMT as hemodynamics permit * Monitor fluid balance, GFR, and electrolytes daily. * Maintain telemetry Admission and Anticipated Discharge Date Admission Date: April 26, 2024 Supervising Physician Co-Signing Physician Notes I have personally performed a history and physical examination on the patient. I have reviewed the advance practitioner's documentation, and I agree with, and take responsibility for the plan of care. 73-year-old male with complex cardiovascular history noted above presents with COVID-19 pneumonia, heart failure, and new onset atrial fibrillation with rapid ventricular response. Heart rate mildly improved with addition of metoprolol 12.5 mg every 6 hours. Amiodarone discontinued secondary to prolonged QT interval. Hypotensive response to IV diltiazem documented in the ER. Overall patient clinical status minimally improved. Continues to note cough with scant sputum production. Heart rate remains elevated on telemetry. Recommendations: Continue metoprolol to 25 mg every 6 hours. One-time dose of IV digoxin today. Continue IV heparin with transition to oral Eliquis at discharge. Monitor fluid balance, GFR, and electrolytes daily. Consider additional Lasix in a.m. 04/29/2024. GDMT as hemodynamics permit. Supportive care, treatment of COVID-19 pneumonia as per hospitalist. Margarito Werner DO [facility] Subjective Patient seen and examined. Chart, medications, and telemetry reviewed. Mild upset stomach after breakfast, otherwise feeling quite a bit better now with improvement in cough, chest congestion, and shortness of breath. No overt palpitations. No orthopnea, PND, or peripheral edema. Review of Systems Review of Systems: Complete Review of Systems is as stated above, negative, or noncontributory. Physical Exam Physical Exam: General: A&Ox3. HENT: Normocephalic. Atraumatic. Eyes: PER. Conjunctiva pink, sclera injected Neck: No JVD. Heart: Irregularly irregular at 120 bpm Lungs: Decreased. Diminished. No rhonchi. No wheeze Abdomen: +BS. Soft. Nontender. No masses or organomegaly. Extremities: No significant edema. Limited neurological examination is without focal deficits. Pulses: Posterior tibial=1/4. Results & Data Vital Signs (Past 12 Hours) Vital Signs Temp Pulse Resp BP Pulse Ox O2 Del Method O2 Flow Rate 04/29/24 08:40 High Flow Nasal Cannula 7 04/29/24 07:38 36.6 C 116 H 20 99/72 L 96 Nasal Cannula 7 04/29/24 06:19 124 H 124/84 04/29/24 02:47 36.8 C 121 H 20 116/66 95 High Flow Nasal Cannula 7 04/29/24 00:17 128 H 118/88 Laboratory Results Comprehensive Metabolic Panel 04/29/24 Range/Units 06:39 Sodium 135 L (136-145) mmol/L Potassium 3.7 (3.5-5.1) mmol/L Chloride 98 (98-107) mmol/L Carbon Dioxide 29 (21-32) mmol/L BUN 40 H (6-23) mg/dl Creatinine 1.32 (0.6-1.4) mg/dl Glucose 56 L (70-99(Fasting)) mg/dl Calcium 8.6 (8.6-10.3) mg/dl Intake and Output 04/28/24 04/29/24 04/29/24 22:59 06:59 14:59 Intake Total 382.550 / 1232.550 850 / 1232.550 414.217 / 414.217 Output Total 275 / 275 Balance 382.550 / 957.550 575 / 957.550 414.217 / 414.217 Intake: IV 382.550 / 432.550 50 / 432.550 414.217 / 414.217 Heparin Sodium/Dextrose 25,000 382.550 / 382.550 414.217 / 414.217 units In 500 ml @ 1,450 UNITS/ HR 29 mls/hr IV .[id number] [facility] Rx #:[id number] cefTRIAXone SODIUM 2,000 mg In 50 / 50 50 ml @ 100 mls/hr IV Q24H [facility] Rx#:[id number] Oral 800 / 800 Output: Urine 275 / 275 Diagnostic Findings Telemetry: Atrial fibrillation with an occasional PVC, rates predominately in the 105 to 130 bpm range.
--- NOTE | 2024-04-29 11:56 | Hospitalist Progress Note ---
Date of Service April 29, 2024 Assessment & Plan (1) New onset a-fib: Plan: Patient presents to the hospital with palpitation, worsening shortness of breath, leg swelling Found to be in A-fib with RVR, probably new onset 2 D ECHO shows EF 25-30% Heparin by weight, transition to PO Eliquis prior to discharge Received a dose of Digoxin today, continue metoprolol tatarate 25mg Q6H Consult cardiology (2) COVID-19: Plan: With hypoxia, cannot rule out bacterial PNA Diagnosed about a week ago, followed outpatient with the PCP who prescribed Paxlovid overnight, desaturated Azithromycin empirically in case of bacterial superinfection, add ceftriaxone CRP mildly elevated, sputum culture, blood culture pending Urine Legionella antigen strep, mycoplasma all negative On supplemental oxygen wean as tolerated (3) Acute CHF: Plan: Acute HF wrEF Presents to the hospital with, orthopnea, PND leg swelling, congestive changes seen on x-ray BNP 290, 2D echo shows EF 25-30% Continue IV Lasix 40 mg daily Monitor input and output, daily weights Consult cardiology, appreciate recs (4) Diabetic peripheral neuropathy associated with type 2 diabetes mellitus: Plan: Follows up with hand stonecutter outpatient Recent visit was about 10 days ago Will resume home insulin regimen Add insulin sliding scale (5) Diabetic ulcer of toe of left foot: Plan: Follows up with podiatry outpatient And also wound care Consult wound (6) Hypoxia: Plan: Most likely due to fluid overload and PNA continue oxygen suopplemenation, wean as tolerated (7) Aspiration into airway: Plan: per RN, patient started coughing yesterday while eating its possible he aspirated will consult speech recheck chest x ray Plan Admit to PCU with telemetry Full code DVT prophylaxis heparin Admission and Anticipated Discharge Date Admission Date: April 26, 2024 Subjective patient seen and examined, feels better today Review of Systems Review of Systems: All systems reviewed are negative, apart from the ones contained in the history. Physical Exam Physical Exam: The patient is awake, alert and oriented 3, well developed and well nourished, normocephalic and atraumatic, lying in bed and in no acute distress. HEENT--PERRL, EOMI, mucous membranes and oropharynx mildly dry Neck--supple. No JVD. No bruits. Thyroid normal, trachea midline, no adenopathy. Heart--normal S1 and S2. No murmurs, rubs or gallops. Lungs--clear bilaterally, no respiratory distress, no accessory muscle use. Abdomen--normal bowel sounds and soft. Extremities--no cyanosis or clubbing. bilateral leg edema Dermatologic--normal skin turgor, normal color, no abnormal lymph nodes, no rash. Neurologic--cranial nerves II through XII grossly intact. Rheumatologic--normal range of motion. Psychiatric--normal affect. Results & Data Results & Data Vital Signs (Past 12 Hours) Vital Signs Temp Pulse Resp BP Pulse Ox O2 Del Method O2 Flow Rate 04/29/24 11:23 97.9 F 117 H 18 128/72 98 Nasal Cannula 7 04/29/24 08:40 High Flow Nasal Cannula 7 04/29/24 07:38 97.9 F 116 H 20 99/72 L 96 Nasal Cannula 7 04/29/24 06:19 124 H 124/84 04/29/24 02:47 98.2 F 121 H 20 116/66 95 High Flow Nasal Cannula 7 04/29/24 00:17 128 H 118/88 PG Care Time/CCT Total # of Minutes Spent Total Time Spent with Patient: Total time spent is greater than 50% in coordination of care (as documented) at patient's floor/unit and/or counseling patient: Coding Level of Care Code 44556 SUB INP/OBS CARE 2/35MIN Diagnoses New onset a-fib I48.91 COVID-19 U07.1 Acute CHF I50.9 Diabetic peripheral neuropathy associated with type 2 diabetes mellitus E11.42 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
[2024-04-29] MEDS: DIGOXIN 250 MCG in SYRINGE 9 ML IV ONE (12:22)
[2024-04-29] MEDS: AZITHROMYCIN 250 MG TAB PO SCH (12:22)
[2024-04-30 07:15] LABS: BUN Creatinine Ratio 34.8 (10-20); C Reactive Protein 4.46 mg/dl (0-0.5); Calcium 8.6 mg/dl (8.6-10.3); Creatinine Clr Calc Pharmacy 80.2 ml/min
[2024-04-30 07:21] LABS: ANTI-Xa, UFH(UnfractionatedHep 0.47 IU/ml (0.3-0.7)
[2024-04-30] MEDS: AZITHROMYCIN 250 MG TAB PO SCH (08:05)
--- NOTE | 2024-04-30 11:48 | Cardiology Progress Note ---
Date of Service April 30, 2024 Assessment & Plan (1) COVID-19: (2) New onset a-fib: (3) Acute CHF: (4) Bicuspid aortic valve: (5) H/O Ross procedure: (6) Ascending aorta dilatation: (7) Apnea, sleep: Plan Complex 73-year-old male admitted with COVID-19 pneumonia, new onset acute decompensated systolic congestive heart failure with LVEF 25-30%, and new onset atrial fibrillation with rapid ventricular response of unknown duration. [id number] Score 7 points. Hypotensive response to IV diltiazem noted in ER. Amiodarone initially prescribed, discontinued due to prolonged QT interval. Rates likely being driven by acute pulmonary illness. Volume remains compensated Recommendations: * Transition from metoprolol tartrate 25 Q6 to GDMT metoprolol succinate, 75 mg BID * Continue IV heparin with transition to oral Eliquis prior to discharge. * No lisinopril; add low dose losartan 12.5 mg/day for now * Probably will need furosemide 20 mg a couple of days per week, +/- spironolactone. * Diltiazem and HCTZ discontinued this admission Admission and Anticipated Discharge Date Admission Date: April 26, 2024 Supervising Physician Co-Signing Physician Notes I have personally performed a history and physical examination on the patient. I have reviewed the advance practitioner's documentation, and I agree with, and take responsibility for the plan of care. 73-year-old male with complex cardiovascular history noted above presents with COVID-19 pneumonia, heart failure, and new onset atrial fibrillation with rapid ventricular response. Heart rate mildly improved. Persisting cough noted. No orthopnea or PND. Daughter at bedside voices concern regarding mild bilateral pedal edema. Recommendations: Transition to metoprolol succinate 75 mg twice daily. Continue IV heparin. Transition to oral Eliquis prior to discharge if no procedures are pending. Lasix 20mg daily. Monitor fluid balance, GFR, and electrolytes daily. GDMT as hemodynamics permit. Supportive care, treatment of COVID-19 pneumonia as per hospitalist. Margarito Werner DO [facility] Subjective Patient seen and examined. Chart, medications, and telemetry reviewed. Feeling better. Breathing easier. Ongoing cough productive of clear/white mucous. No chest pain, palpitations, PND, or peripheral edema. Review of Systems Review of Systems: Complete Review of Systems is as stated above, negative, or noncontributory. Physical Exam Physical Exam: General: A&Ox3. HENT: Normocephalic. Atraumatic. Eyes: PER. Conjunctiva pink, sclera injected Neck: No JVD. Heart: Irregularly irregular at 100 bpm Lungs: Decreased. Diminished. No rhonchi. No wheeze Abdomen: +BS. Soft. Nontender. No masses or organomegaly. Extremities: No significant edema. Limited neurological examination is without focal deficits. Pulses: Posterior tibial=1/4. Results & Data Vital Signs (Past 12 Hours) Vital Signs Temp Pulse Resp BP Pulse Ox O2 Del Method O2 Flow Rate 04/30/24 10:12 36.5 C 107 H 19 128/89 92 High Flow Nasal Cannula 7 04/30/24 08:15 36.5 C 112 H 15 114/77 90 Nasal Cannula 7 04/30/24 03:30 36.6 C 107 H 17 115/55 L 91 High Flow Nasal Cannula 6 Laboratory Results Comprehensive Metabolic Panel 04/30/24 Range/Units 06:42 Sodium 136 (136-145) mmol/L Potassium 4.0 (3.5-5.1) mmol/L Chloride 98 (98-107) mmol/L Carbon Dioxide 29 (21-32) mmol/L BUN 39 H (6-23) mg/dl Creatinine 1.12 (0.6-1.4) mg/dl Glucose 160 H (70-99(Fasting)) mg/dl Calcium 8.6 (8.6-10.3) mg/dl Intake and Output 04/29/24 04/30/24 04/30/24 22:59 06:59 14:59 Intake Total 872.4 / 2392.400 400 / 2392.400 337.6 / 337.6 Balance 872.4 / 2392.400 400 / 2392.400 337.6 / 337.6 Intake: IV 162.4 / 712.400 50 / 712.400 337.6 / 337.6 Heparin Sodium/Dextrose 25,000 162.4 / 662.400 337.6 / 337.6 units In 500 ml @ 1,450 UNITS/ HR 29 mls/hr IV .[id number] [facility] Rx #:[id number] cefTRIAXone SODIUM 2,000 mg In 50 / 50 50 ml @ 100 mls/hr IV Q24H [facility] Rx#:[id number] Oral 710 / 1680 350 / 1680 Other: # Unmeasured Voids 1 Weight 117.8 kg Weight Measurement Method Built in [facility]
[2024-04-30] MEDS: LAVAGE SOLUTION 4000ML PO SCH (12:25)
--- NOTE | 2024-04-30 14:18 | Hospitalist Progress Note ---
Date of Service April 30, 2024 Assessment & Plan (1) New onset a-fib: Plan: Patient presents to the hospital with palpitation, worsening shortness of breath, leg swelling Found to be in A-fib with RVR, probably new onset 2 D ECHO shows EF 25-30% Heparin by weight, transition to PO Eliquis prior to discharge Received a dose of Digoxin, continue metoprolol tatarate 25mg Q6H Consult cardiology (2) COVID-19: Plan: With hypoxia, cannot rule out bacterial PNA Diagnosed about a week ago, followed outpatient with the PCP who prescribed Paxlovid overnight, desaturated Azithromycin and ceftriaxone empirically in case of bacterial superinfection, CRP mildly elevated, sputum culture, blood culture pending Urine Legionella antigen negative, strep, mycoplasma pending On supplemental oxygen wean as tolerated (3) Acute CHF: Plan: Acute HF wrEF Presents to the hospital with, orthopnea, PND leg swelling, congestive changes seen on x-ray BNP 290, 2D echo shows EF 25-30% Continue IV Lasix 40 mg daily, Losartan Monitor input and output, daily weights Consult cardiology, appreciate recs (4) Diabetic peripheral neuropathy associated with type 2 diabetes mellitus: Plan: Follows up with fiber optics engineer outpatient Recent visit was about 10 days ago Will resume home insulin regimen Add insulin sliding scale (5) Diabetic ulcer of toe of left foot: Plan: Follows up with podiatry outpatient And also wound care Consult wound (6) Hypoxia: Plan: Most likely due to fluid overload and PNA continue oxygen suopplemenation, wean as tolerated (7) Aspiration into airway: Plan: per RN, patient started coughing while eating its possible he aspirated will consult speech recheck chest x ray Plan Admit to PCU with telemetry Full code DVT prophylaxis heparin Admission and Anticipated Discharge Date Admission Date: April 26, 2024 Subjective patient seen and examined, still short of breath, although much improved Review of Systems Review of Systems: All systems reviewed are negative, apart from the ones contained in the history. Physical Exam Physical Exam: The patient is awake, alert and oriented 3, well developed and well nourished, normocephalic and atraumatic, lying in bed and in no acute distress. HEENT--PERRL, EOMI, mucous membranes and oropharynx mildly dry Neck--supple. No JVD. No bruits. Thyroid normal, trachea midline, no adenopathy. Heart--normal S1 and S2. No murmurs, rubs or gallops. Lungs--clear bilaterally, no respiratory distress, no accessory muscle use. Abdomen--normal bowel sounds and soft. Extremities--no cyanosis or clubbing. bilateral leg edema Dermatologic--normal skin turgor, normal color, no abnormal lymph nodes, no rash. Neurologic--cranial nerves II through XII grossly intact. Rheumatologic--normal range of motion. Psychiatric--normal affect. Results & Data Results & Data Vital Signs (Past 12 Hours) Vital Signs Temp Pulse Resp BP Pulse Ox O2 Del Method O2 Flow Rate 04/30/24 10:12 97.7 F 107 H 19 128/89 92 High Flow Nasal Cannula 7 04/30/24 08:30 Oxymask 7 04/30/24 08:15 97.7 F 112 H 15 114/77 90 Nasal Cannula 7 04/30/24 03:30 97.9 F 107 H 17 115/55 L 91 High Flow Nasal Cannula 6 PG Care Time/CCT Total # of Minutes Spent Total Time Spent with Patient: Total time spent is greater than 50% in coordination of care (as documented) at patient's floor/unit and/or counseling patient: Coding Level of Care Code 51120 SUB INP/OBS CARE 2/35MIN Diagnoses New onset a-fib I48.91 COVID-19 U07.1 Acute CHF I50.9 Diabetic peripheral neuropathy associated with type 2 diabetes mellitus E11.42 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
[2024-04-30] MEDS: FUROSEMIDE 20 MG TAB PO SCH (14:55)
[2024-04-30 16:59] LABS: ANTI-Xa, UFH(UnfractionatedHep < 0.10 IU/ml (0.3-0.7)
[2024-04-30] MEDS ORDERED: HEPARIN SOD (PORCINE) 1000 UNIT/ML IV ONE (17:03)
[2024-04-30] MEDS: APIXABAN 5 MG TABLET PO SCH (20:27)
[2024-04-30] MEDS: LOSARTAN POTASSIUM 25 MG TAB PO SCH (20:28)
[2024-04-30] MEDS: METOPROLOL SUCC 25MG EXT REL TAB PO SCH (20:32)
[2024-05-01 06:02] LABS: Hematocrit (blood only) 37.5 % (42.0-52.0); Hemoglobin 12.5 g/dl (14.0-18.0); Mean Corpuscular Hemoglobin 28.5 pg (25.0-34.0); Mean Corpuscular Hgb Conc 33.3 g/dL (32.0-36.0); Mean Corpuscular Volume 85.6 fL (80.0-100.0); Platelet Count 260 K/uL (130-400); RDW Coefficient of Variation 14.4 % (11.5-14.5); RDW Standard Deviation 44.2 fL (36.4-46.3); Red Blood Count 4.38 M/uL (4.70-6.10); White Blood Count 12.68 K/ul (4.8-10.8)
[2024-05-01 06:15] LABS: BUN Creatinine Ratio 39.8 (10-20); Calcium 8.7 mg/dl (8.6-10.3); Creatinine Clr Calc Pharmacy 86.2 ml/min
[2024-05-01 08:26] LABS: C Reactive Protein 2.94 mg/dl (0-0.5)
--- NOTE | 2024-05-01 09:42 | Cardiology Progress Note ---
Date of Service May 01, 2024 Assessment & Plan (1) COVID-19: (2) New onset a-fib: (3) Acute CHF: (4) Bicuspid aortic valve: (5) H/O Ross procedure: (6) Ascending aorta dilatation: (7) Apnea, sleep: Plan Continue metoprolol succinate 75 mg twice daily. Additional IV dose digoxin 250 mcg today. Continue IV heparin. Transition to oral Eliquis prior to discharge if no procedures are pending. Lasix 20mg daily. Monitor fluid balance, GFR, and electrolytes daily. GDMT as hemodynamics permit. Losartan added yesterday 04/30/2024. Diltiazem and hydrochlorothiazide discontinued this admission. Supportive care, treatment of COVID-19 pneumonia as per hospitalist. Admission and Anticipated Discharge Date Admission Date: April 26, 2024 Subjective Patient seen and examined at the bedside. Feeling better today. Cough improved. Atrial fibrillation with heart rate 100-1 20s on telemetry although heart rate up into the 130s with activity. Subjectively improved. Lower extremity edema unchanged. Low-dose furosemide added yesterday. Review of Systems Review of Systems: All systems reviewed & are unremarkable except as noted in Subjective Physical Exam Constitutional: + ill appearing and + obese Respiratory: no respiratory distress and no labored breathing Auscultation: + crackles and + rhonchi (Bilateral); no wheezes Cardiovascular: Rate/Rhythm: + tachycardic and + irregularly irregular Heart Sounds: normal S1 and normal S2; no murmur Vessels: no JVD Extremities: + edema (Mild bilateral pedal edema) Gastrointestinal (Abdomen): Inspection/Auscultation: abdomen normal to inspection; abdomen not distended Neurologic: CN's II-XI intact bilaterally and moves all extremities; no focal motor deficits Results & Data Vital Signs (Past 12 Hours) Vital Signs Temp Pulse Pulse Resp BP Pulse Ox O2 Del Method 05/01/24 08:15 36.4 C L 133 H 20 93/61 L 90 Oxymask 05/01/24 03:27 36.5 C 118 H 19 105/64 93 Oxymask 04/30/24 23:19 36.8 C 118 H 19 139/83 93 Nasal Cannula, High Flow Nasal Cannula 04/30/24 22:48 131 H O2 Flow Rate 05/01/24 08:15 6 12/21/24 03:27 7 04/30/24 23:19 7 04/30/24 22:48 Laboratory Results CBC 05/01/24 Range/Units 05:39 WBC 12.68 H (4.8-10.8) K/ul RBC 4.38 L (4.70-6.10) M/uL Hgb 12.5 L (14.0-18.0) g/dl Hct 37.5 L (42.0-52.0) % Plt Count 260 (130-400) K/uL Comprehensive Metabolic Panel 05/01/24 Range/Units 05:39 Sodium 137 (136-145) mmol/L Potassium 4.0 (3.5-5.1) mmol/L Chloride 100 (98-107) mmol/L Carbon Dioxide 29 (21-32) mmol/L BUN 41 H (6-23) mg/dl Creatinine 1.03 (0.6-1.4) mg/dl Glucose 152 H (70-99(Fasting)) mg/dl Calcium 8.7 (8.6-10.3) mg/dl Intake and Output 04/30/24 05/01/24 05/01/24 22:59 06:59 14:59 Intake Total 439.033 / 1646.633 150.000 / 1646.633 Output Total Balance 438.033 / 1645.633 150.000 / 1645.633 Intake: IV 289.033 / 676.633 50.000 / 676.633 Heparin Sodium/Dextrose 25,000 289.033 / 626.633 units In 500 ml @ 1,450 UNITS/ HR 29 mls/hr IV .[id number] [facility] Rx #:[id number] cefTRIAXone SODIUM 2,000 mg In 50.000 / 50.000 50 ml @ 100 mls/hr IV Q24H [facility] Rx#:[id number] Oral 150 / 970 100 / 970 Output: # Bowel Movements Other: Weight 115.2 kg Weight Measurement Method Built in [facility]
[2024-05-01] MEDS: DIGOXIN 250 MCG in SYRINGE 9 ML IV STA (11:05)
--- NOTE | 2024-05-01 11:33 | Hospitalist Progress Note ---
Date of Service May 01, 2024 Assessment & Plan (1) New onset a-fib: Plan: Patient presents to the hospital with palpitation, worsening shortness of breath, leg swelling Found to be in A-fib with RVR, probably new onset 2 D ECHO shows EF 25-30% Initially on Heparin by weight, transitioned to PO Eliquis 5mg BID Received a dose of Digoxin, continue metoprolol succinate 75mg bid appreciate cardiology (2) COVID-19: Plan: With hypoxia, cannot rule out bacterial PNA Diagnosed about a week prior to presenation, followed outpatient with the PCP who prescribed Paxlovid Azithromycin and ceftriaxone empirically in case of bacterial superinfection, CRP mildly elevated, but trending down, sputum culture, blood culture pending Urine Legionella antigen negative, strep, mycoplasma pending On supplemental oxygen, 4L today, down from 7L wean as tolerated (3) Acute CHF: Plan: Acute HF wrEF Presents to the hospital with, orthopnea, PND leg swelling, congestive changes seen on x-ray BNP 290, 2D echo shows EF 25-30% Continue PO Lasix 20 mg daily, Losartan Monitor input and output, daily weights Consult cardiology, appreciate recs (4) Diabetic peripheral neuropathy associated with type 2 diabetes mellitus: Plan: Follows up with phlebotomist outpatient Recent visit was about 10 days ago Will resume home insulin regimen Add insulin sliding scale (5) Diabetic ulcer of toe of left foot: Plan: Follows up with podiatry outpatient And also wound care Consult wound (6) Hypoxia: Plan: Most likely due to fluid overload and PNA continue oxygen suopplemenation, wean as tolerated (7) Aspiration into airway: Plan Admit to PCU with telemetry Full code DVT prophylaxis heparin Admission and Anticipated Discharge Date Admission Date: April 26, 2024 Subjective patiient seen and examined, he feels overall better, SOB is improved Review of Systems Review of Systems: All systems reviewed are negative, apart from the ones contained in the history. Physical Exam Physical Exam: The patient is awake, alert and oriented 3, well developed and well nourished, normocephalic and atraumatic, lying in bed and in no acute distress. HEENT--PERRL, EOMI, mucous membranes and oropharynx mildly dry Neck--supple. No JVD. No bruits. Thyroid normal, trachea midline, no adenopathy. Heart--normal S1 and S2. No murmurs, rubs or gallops. Lungs--clear bilaterally, no respiratory distress, no accessory muscle use. Abdomen--normal bowel sounds and soft. Extremities--no cyanosis or clubbing. bilateral leg edema Dermatologic--normal skin turgor, normal color, no abnormal lymph nodes, no rash. Neurologic--cranial nerves II through XII grossly intact. Rheumatologic--normal range of motion. Psychiatric--normal affect. Results & Data Results & Data Vital Signs (Past 12 Hours) Vital Signs Temp Pulse Resp BP Pulse Ox O2 Del Method O2 Flow Rate 05/01/24 10:17 Nasal Cannula 4 05/01/24 08:15 97.5 F L 133 H 20 93/61 L 90 Oxymask 6 05/01/24 03:27 97.7 F 118 H 19 105/64 93 Oxymask 7 PG Care Time/CCT Total # of Minutes Spent Total Time Spent with Patient: Total time spent is greater than 50% in coordination of care (as documented) at patient's floor/unit and/or counseling patient: Coding Level of Care Code 18328 SUB INP/OBS CARE 2/35MIN Diagnoses New onset a-fib I48.91 COVID-19 U07.1 Acute CHF I50.9 Diabetic peripheral neuropathy associated with type 2 diabetes mellitus E11.42 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
[2024-05-02 00:12] LABS: Mycoplasma pneumoniae Ab, IgG 3.32 (<=0.90); Mycoplasma pneumoniae Ab, IgM 47 U/mL (<770); Pneumococcal IgG Type 1 4.4; Pneumococcal IgG Type 12 (12F) 3.2; Pneumococcal IgG Type 14 8.7; Pneumococcal IgG Type 17 (17F) 14.6; Pneumococcal IgG Type 19 (19F) 11.1; Pneumococcal IgG Type 2 0.6; Pneumococcal IgG Type 22 (22F) <0.3; Pneumococcal IgG Type 26 (6B) 6.6; Pneumococcal IgG Type 3 2.8; Pneumococcal IgG Type 34 (10A) 0.8; Pneumococcal IgG Type 4 0.8; Pneumococcal IgG Type 43 (11A) 4.2; Pneumococcal IgG Type 5 66.2; Pneumococcal IgG Type 51 (7F) 4.5; Pneumococcal IgG Type 54 (15B) 3.8; Pneumococcal IgG Type 57 (19A) 5.5; Pneumococcal IgG Type 68 (9V) 2.3; Pneumococcal IgG Type 70 (33F) <0.3; Pneumococcal IgG Type 8 6.1; Pneumococcal IgG Type 9 (9N) 2.3
[2024-05-02] MEDS: LANTUS PER UNIT CHARGE SQ SCH (08:19)
[2024-05-02 09:01] LABS: Hematocrit (blood only) 40.4 % (42.0-52.0); Hemoglobin 13.3 g/dl (14.0-18.0); Mean Corpuscular Hgb Conc 32.9 g/dL (32.0-36.0); Mean Platelet Volume 12.1 fL (9.4-12.4); Platelet Count 274 K/uL (130-400); RDW Coefficient of Variation 14.4 % (11.5-14.5); RDW Standard Deviation 46.3 fL (36.4-46.3); Red Blood Count 4.59 M/uL (4.70-6.10); White Blood Count 12.67 K/ul (4.8-10.8)
[2024-05-02 09:27] LABS: BUN Creatinine Ratio 39.8 (10-20); Calcium 8.9 mg/dl (8.6-10.3); Creatinine Clr Calc Pharmacy 86.5 ml/min; Potassium 5.2 mmol/L (3.5-5.1)
--- NOTE | 2024-05-02 11:03 | Hospitalist Progress Note ---
Date of Service May 02, 2024 Assessment & Plan (1) New onset a-fib: Plan: Patient presents to the hospital with palpitation, worsening shortness of breath, leg swelling Found to be in A-fib with RVR, probably new onset 2 D ECHO shows EF 25-30% Initially on Heparin by weight, transitioned to PO Eliquis 5mg BID Received two doses of Digoxin, increase metoprolol succinate 100mg bid appreciate cardiology (2) COVID-19: Plan: With hypoxia, cannot rule out bacterial PNA Diagnosed about a week prior to presenation, followed outpatient with the PCP who prescribed Paxlovid Azithromycin and ceftriaxone empirically in case of bacterial superinfection, CRP mildly elevated, but trending down, sputum culture, blood culture pending Urine Legionella antigen negative, strep, mycoplasma pending Now on room air (3) Acute CHF: Plan: Acute HF wrEF Presents to the hospital with, orthopnea, PND leg swelling, congestive changes seen on x-ray BNP 290, 2D echo shows EF 25-30% Continue IV Lasix 40 mg daily, Losartan Monitor input and output, daily weights Consult cardiology, appreciate recs (4) Diabetic peripheral neuropathy associated with type 2 diabetes mellitus: Plan: Follows up with trauma manager outpatient Recent visit was about 10 days ago Will resume home insulin regimen Add insulin sliding scale (5) Diabetic ulcer of toe of left foot: Plan: Follows up with podiatry outpatient And also wound care Consult wound (6) Hypoxia: Plan: now resolved (7) Aspiration into airway: Plan continue to monitor in the hospital Full code DVT prophylaxis eliquis Admission and Anticipated Discharge Date Admission Date: April 26, 2024 Subjective patiient seen and examined, he feels overall better, SOB is improved Review of Systems Review of Systems: All systems reviewed are negative, apart from the ones contained in the history. Physical Exam Physical Exam: The patient is awake, alert and oriented 3, well developed and well nourished, normocephalic and atraumatic, lying in bed and in no acute distress. HEENT--PERRL, EOMI, mucous membranes and oropharynx mildly dry Neck--supple. No JVD. No bruits. Thyroid normal, trachea midline, no adenopathy. Heart--normal S1 and S2. No murmurs, rubs or gallops. Lungs--clear bilaterally, no respiratory distress, no accessory muscle use. Abdomen--normal bowel sounds and soft. Extremities--no cyanosis or clubbing. bilateral leg edema Dermatologic--normal skin turgor, normal color, no abnormal lymph nodes, no rash. Neurologic--cranial nerves II through XII grossly intact. Rheumatologic--normal range of motion. Psychiatric--normal affect. Results & Data Results & Data Vital Signs (Past 12 Hours) Vital Signs Temp Pulse Resp BP Pulse Ox O2 Del Method O2 Flow Rate 05/02/24 08:00 97.9 F 106 H 18 117/70 93 Room Air 05/02/24 04:13 97.5 F L 102 H 22 116/72 91 High Flow Nasal Cannula 05/01/24 23:35 97.9 F 114 H 18 113/71 90 Nasal Cannula 2 PG Care Time/CCT Total # of Minutes Spent Total Time Spent with Patient: Total time spent is greater than 50% in coordination of care (as documented) at patient's floor/unit and/or counseling patient: Coding Level of Care Code 58714 SUB INP/OBS CARE 2/35MIN Diagnoses New onset a-fib I48.91 COVID-19 U07.1 Acute CHF I50.9 Diabetic peripheral neuropathy associated with type 2 diabetes mellitus E11.42 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
--- NOTE | 2024-05-02 11:03 | Cardiology Progress Note ---
Date of Service May 02, 2024 Assessment & Plan (1) COVID-19: (2) New onset a-fib: (3) Acute CHF: (4) Bicuspid aortic valve: (5) H/O Ross procedure: (6) Ascending aorta dilatation: (7) Apnea, sleep: Plan Reduced left ventricular systolic, acute heart failure with reduced ejection fraction in the setting of COVID-19 infection and rapid atrial fibrillation (new onset) on admission. Recommend IV diuresis due to worsening edema, Lasix 40 mg x 1 now. Titrate metoprolol succinate to 100 mg twice dailym to improve rate control. Diltiazem ER discontinued on admission due to reduced EF and CHF. Consider addition of oral digoxin 125mcg daily pending clinical response. Agree with transition of IV heparin to Eliquis. Monitor fluid balance, GFR, and electrolytes daily. GDMT as hemodynamics permit. Losartan added 04/30/2024. Supportive care, treatment of COVID-19 pneumonia as per hospitalist. Admission and Anticipated Discharge Date Admission Date: April 26, 2024 Subjective 73-year-old male seen and examined at the bedside. No longer requiring supplemental oxygen. Edema worsening this a.m. Heart rate remains elevated in atrial fibrillation 100-100 20s beats per minute. At times heart rate higher with activity. Patient denies orthopnea. Cough improved. IV heparin transition to Eliquis. Review of Systems Review of Systems: All systems reviewed & are unremarkable except as noted in Subjective Physical Exam Constitutional: + ill appearing and + obese Respiratory: no respiratory distress and no labored breathing Auscultation: + crackles and + rhonchi (Bilateral); no wheezes Cardiovascular: Rate/Rhythm: + tachycardic and + irregularly irregular Heart Sounds: normal S1 and normal S2; no murmur Vessels: no JVD Extremities: + edema (2+ bilateral pedal edema) Gastrointestinal (Abdomen): Inspection/Auscultation: abdomen normal to inspection; abdomen not distended Neurologic: CN's II-XI intact bilaterally and moves all extremities; no focal motor deficits Results & Data Vital Signs (Past 12 Hours) Vital Signs Temp Pulse Resp BP Pulse Ox O2 Del Method O2 Flow Rate 05/02/24 08:00 36.6 C 106 H 18 117/70 93 Room Air 05/02/24 04:13 36.4 C L 102 H 22 116/72 91 High Flow Nasal Cannula 05/01/24 23:35 36.6 C 114 H 18 113/71 90 Nasal Cannula 2 Laboratory Results CBC 05/02/24 Range/Units 07:54 WBC 12.67 H (4.8-10.8) K/ul RBC 4.59 L (4.70-6.10) M/uL Hgb 13.3 L (14.0-18.0) g/dl Hct 40.4 L (42.0-52.0) % Plt Count 274 (130-400) K/uL Comprehensive Metabolic Panel 05/02/24 Range/Units 07:54 Sodium 138 (136-145) mmol/L Potassium 5.2 H D (3.5-5.1) mmol/L Chloride 100 (98-107) mmol/L Carbon Dioxide 35 H (21-32) mmol/L BUN 41 H (6-23) mg/dl Creatinine 1.03 (0.6-1.4) mg/dl Glucose 212 H (70-99(Fasting)) mg/dl Calcium 8.9 (8.6-10.3) mg/dl Intake and Output 05/01/24 05/02/24 05/02/24 22:59 06:59 14:59 Other: Weight 116 kg (3) Acute CHF Heart failure type: systolic Qualified Code(s): I50.21 - Acute systolic (congestive) heart failure
[2024-05-02] MEDS: FUROSEMIDE 40 MG/4 ML VIAL IV ONE (12:03)
[2024-05-02] MEDS: SODIUM ZIRCONIUM CYCLOSILICATE 10 GM PACKET PO SCH (12:03)
[2024-05-02] MEDS: METOPROLOL SUCC 50MG EXT REL TAB PO SCH (20:41)
[2024-05-03 08:10] LABS: Hematocrit (blood only) 42.1 % (42.0-52.0); Hemoglobin 13.6 g/dl (14.0-18.0); Mean Corpuscular Hemoglobin 28.6 pg (25.0-34.0); Mean Corpuscular Hgb Conc 32.3 g/dL (32.0-36.0); Mean Corpuscular Volume 88.6 fL (80.0-100.0); Platelet Count 304 K/uL (130-400); RDW Coefficient of Variation 14.6 % (11.5-14.5); RDW Standard Deviation 47.4 fL (36.4-46.3); Red Blood Count 4.75 M/uL (4.70-6.10); White Blood Count 14.73 K/ul (4.8-10.8)
[2024-05-03 08:22] LABS: BUN Creatinine Ratio 37.1 (10-20); Calcium 9.1 mg/dl (8.6-10.3); Creatinine Clr Calc Pharmacy 76.8 ml/min
[2024-05-03] MEDS ORDERED: DIGOXIN 250 MCG in SYRINGE 9 ML IV STA (08:23)
--- NOTE | 2024-05-03 08:25 | Hospitalist Progress Note ---
Date of Service May 03, 2024 Assessment & Plan (1) New onset a-fib: (2) COVID-19: (3) Acute CHF: (4) Diabetic peripheral neuropathy associated with type 2 diabetes mellitus: (5) Diabetic ulcer of toe of left foot: Plan 81-year-old male presents with atrial fibrillation rapid ventricular response, acute heart failure reduced ejection fraction, history of Ross procedure and now with pulm hypertension and severe TR, echo shows diffuse hypokinesis. Patient is rate control is not optimal cardiology has evaluated the patient recommends increasing beta-alex as replacement for calcium channel alex and added digoxin daily after augmented dose05/03. Anticoagulation transition from heparin to Eliquis, HFeEF 25-30% may be rate related, cardiology is following,started on losartan, no discussion of sglt2 or entresto as of yet covid 19 now off respiratory isolation, diagnosed about a week prior to presentation, followed outpatient with the PCP who prescribed Paxlovid, now not continued Azithromycin and ceftriaxone empirically in case of bacterial superinfection Diabetes with neuropathy, Pt has diabetic foot issues chronically, wound consult Full code DVT prophylaxis eliquis Admission and Anticipated Discharge Date Admission Date: April 26, 2024 Subjective pt is going a bit stir crazy, still with poor rate control and peripheral edema cardiology has increased b alex and requests further diuresis Physical Exam Physical Exam: pt with 2+ Le edema tachycardia with kristi Results & Data Results & Data Vital Signs (Past 12 Hours) Vital Signs Temp Pulse Pulse Pulse Resp BP Pulse Ox 05/03/24 07:30 98.1 F 119 H 20 124/76 95 05/03/24 07:29 102 H 05/03/24 06:24 128 H 05/03/24 03:06 98.1 F 108 H 18 112/76 94 05/03/24 00:43 101 H 05/02/24 23:05 05/02/24 20:24 98.2 F 111 H 18 116/78 94 O2 Del Method 05/03/24 07:30 Room Air 05/03/24 07:29 05/03/24 06:24 05/03/24 03:06 Room Air 05/03/24 00:43 05/02/24 23:05 Room Air 05/02/24 20:24 Room Air Laboratory Results review cbc review prp PG Care Time/CCT Total # of Minutes Spent Total Time Spent with Patient: Total time spent is greater than 50% in coordination of care (as documented) at patient's floor/unit and/or counseling patient: Coding Level of Care Code 09473 SUB INP/OBS CARE 3/50MIN Diagnoses New onset a-fib I48.91 COVID-19 U07.1 Acute systolic congestive heart failure I50.21 Heart failure type: systolic Diabetic peripheral neuropathy associated with type 2 diabetes mellitus E11.42 Diabetic ulcer of toe of left foot associated with type 2 diabetes mellitus, limited to breakdown of skin E11.621; L97.521 Diabetes mellitus type: type 2 Non-pressure ulcer stage: limited to breakdown of skin (3) Acute CHF Heart failure type: systolic Qualified Code(s): I50.21 - Acute systolic (congestive) heart failure (5) Diabetic ulcer of toe of left foot Diabetes mellitus type: type 2 Non-pressure ulcer stage: limited to breakdown of skin Qualified Code(s): E11.621 - Type 2 diabetes mellitus with foot ulcer; L97.521 - Non-pressure chronic ulcer of other part of left foot limited to breakdown of skin
[2024-05-03 08:55] LABS: Magnesium 2.7 mg/dl (1.7-2.4)
--- NOTE | 2024-05-03 12:28 | Cardiology Progress Note ---
Date of Service May 03, 2024 Assessment & Plan (1) COVID-19: (2) New onset a-fib: (3) Acute CHF: (4) Bicuspid aortic valve: (5) H/O Ross procedure: (6) Ascending aorta dilatation: (7) Apnea, sleep: Plan Reduced left ventricular systolic, acute heart failure with reduced ejection fraction in the setting of COVID-19 infection and rapid atrial fibrillation (new onset) on admission. Recommend IV diuresis due to worsening edema, Lasix 40 mg x 1 now. Titrate metoprolol succinate to 100 mg twice dailym to improve rate control. Diltiazem ER discontinued on admission due to reduced EF and CHF. Consider addition of oral digoxin 125mcg daily pending clinical response. Agree with transition of IV heparin to Eliquis. Monitor fluid balance, GFR, and electrolytes daily. GDMT as hemodynamics permit. Losartan added 04/30/2024. Supportive care, treatment of COVID-19 pneumonia as per hospitalist. 05/03/2024 Patient is slow to improve with persistent lower extremity edema and to atrial fibrillation with elevated ventricular response rates. Weight not significantly changed. Patient very uncomfortable in hospital but oxygen status and pulmonary status improving. Recommendations Increase metoprolol succinate to 125 mg twice per day Continue digoxin load Increase furosemide to 40 mg p.o. daily with additional 40 mg to be given now Lower extremity edema aggravated by pulmonary valve replacement and associated pulmonary hypertension, underlying valvular disease with superimposed pulmonary infection I spent a total of 40 minutes on the date of service in preparation, delivery, and documentation of the care provided to this patient, excluding any time spent in the performance of separately billed services. Admission and Anticipated Discharge Date Admission Date: April 26, 2024 Subjective Patient was seen and personally examined. Telemetry reviewed. Patient improving but still with elevated heart rates and weeping lower extremities. Difficult sleeping in bed due back discomfort. No worsening cough or shortness of breath. Atrial fibrillation still very fast at times especially with minimal activities. No longer requiring oxygen supplementation at rest Review of Systems Review of Systems: All systems reviewed & are unremarkable except as noted in Subjective Physical Exam Physical Exam: G Constitutional: + ill appearing and + obese Respiratory: no respiratory distress and no labored breathing Auscultation: + wheezes (At bases) Cardiovascular: Rate/Rhythm: + tachycardic and + irregularly irregular Heart Sounds: normal S1, normal S2 and + murmur Vessels: no JVD Extremities: + edema (2+ bilateral pedal edema) Gastrointestinal (Abdomen): Inspection/Auscultation: abdomen normal to inspection; abdomen not distended Neurologic: CN's II-XI intact bilaterally and moves all extremities; no focal motor deficits Results & Data Vital Signs (Past 12 Hours) Vital Signs Temp Pulse Pulse Pulse Resp BP Pulse Ox 05/03/24 11:21 36.4 C L 104 H 19 103/68 91 05/03/24 07:30 36.7 C 119 H 20 124/76 95 05/03/24 07:29 102 H 05/03/24 06:24 128 H 05/03/24 03:06 36.7 C 108 H 18 112/76 94 05/03/24 00:43 101 H O2 Del Method 05/03/24 11:21 Room Air 05/03/24 07:30 Room Air 05/03/24 07:29 05/03/24 06:24 05/03/24 03:06 Room Air 05/03/24 00:43 Laboratory Results Laboratory Results - last 24 hr 05/02/24 05/02/24 05/03/24 16:41 20:22 07:27 WBC RBC Hgb Hct MCV MCH MCHC RDW Std Deviation RDW Coeff of Vandana Plt Count MPV Sodium Potassium Chloride Carbon Dioxide Anion Gap BUN Creatinine Est Cr Clr Drug Dosing eGFR BUN/Creatinine Ratio Glucose POC Glucose 272 H 247 H 106 H Calcium Magnesium Digoxin 05/03/24 05/03/24 05/03/24 07:43 09:48 12:02 WBC 14.73 H RBC 4.75 Hgb 13.6 L Hct 42.1 MCV 88.6 MCH 28.6 MCHC 32.3 RDW Std Deviation 47.4 H RDW Coeff of Vandana 14.6 H Plt Count 304 MPV 12.0 Sodium 141 Potassium 5.0 Chloride 101 Carbon Dioxide 35 H Anion Gap 5 BUN 43 H Creatinine 1.16 Est Cr Clr Drug Dosing 76.8 eGFR 67.34 BUN/Creatinine Ratio 37.1 H Glucose 92 POC Glucose 106 H Calcium 9.1 Magnesium 2.7 H Digoxin 0.4 L (3) Acute CHF Heart failure type: systolic Qualified Code(s): I50.21 - Acute systolic (congestive) heart failure
[2024-05-03] MEDS: DIGOXIN 250 MCG in SYRINGE 9 ML IV STA (12:35)
[2024-05-03] MEDS: FUROSEMIDE 40 MG TAB PO SCH (12:46)
[2024-05-03] MEDS: METOPROLOL SUCC 25MG EXT REL TAB PO STA (12:46)
[2024-05-03] MEDS: DIGOXIN 250 MCG in SYRINGE 9 ML IV SCH (18:10)
[2024-05-03] MEDS: FUROSEMIDE 40 MG/4 ML VIAL IV ONE (18:11)
[2024-05-03] MEDS: METOPROLOL SUCC 25MG EXT REL TAB PO SCH (20:30)
[2024-05-04] MEDS: CARBOHYDRATES FOR HYPOGLYCEMIA PO PRN (04:30)
--- NOTE | 2024-05-04 10:22 | XRay Report ---
XR chest 1V portable CLINICAL HISTORY: CHF TECHNIQUE: Single frontal radiograph of the chest was obtained. Comparison: Comparison is made to chest radiograph 04/28/2024 FINDINGS: Median sternotomy wires are unchanged. Cardiomegaly is noted. There is prominence and cephalization o f the vasculature with Donnie B lines seen. Small bilateral pleural effusions are seen. IMPRESSION: 1. Cardiomegaly and moderate pulmonary edema. 2. Small bilateral pleural effusions. ACT 112: Negative or not required by law. Electronically signed by: Arik Giang M.D. 05/04/2024 10:20 AM
--- NOTE | 2024-05-04 10:25 | Cardiology Progress Note ---
Date of Service May 04, 2024 Assessment & Plan (1) COVID-19: (2) New onset a-fib: (3) Acute CHF: (4) Bicuspid aortic valve: (5) H/O Ross procedure: (6) Ascending aorta dilatation: (7) Apnea, sleep: Plan Complex 73-year-old male admitted with COVID-19 pneumonia, new onset acute decompensated systolic congestive heart failure with LVEF 25-30%, and new onset atrial fibrillation with rapid ventricular response of unknown duration. [id number] Score 7 points. Hypotensive response to IV diltiazem noted in ER. Amiodarone initially prescribed, discontinued due to prolonged QT interval. Volume status is hypervolemic with lower extremity edema aggravated by pulmonary valve replacement and associated pulmonary hypertension, underlying valvular disease, superimposed pulmonary infection, new onset systolic dysfunction. Recommendations: * Increase metoprolol succinate to 150 mg twice a day * Change digoxin to 125 mcg by mouth on MWF * Continue Eliquis 5 mg twice a day * Check AM labs * Continue furosemide 40 mg PO daily * Continue losartan 12.5 mg/day * No Diltiazem, lisinopril, or HCTZ (discontinued this admission) * Increase activity as tolerated Admission and Anticipated Discharge Date Admission Date: April 26, 2024 Supervising Physician Co-Signing Physician Notes I have personally performed a history and physical examination on the patient. I have reviewed the advance practitioner's documentation, and I agree with, and take responsibility for the plan of care. Discussed care with this patient with the hospitalist. Agree with additional IV diuretics for 24 hours. Chest x-ray and lower extremity edema consistent with volume overload still. Heart rate now trending towards better control tolerati ng current medications Subjective Patient seen and examined. Chart, medications, telemetry reviewed. Feeling better overall. Improved dyspnea as well as lower extremity peripheral edema. Maintaining oxygen saturation above 90% on room air. Heart rates trending towards better control. Telemetry: Atrial fibrillation, currently in the 90s, rates still mildly elevated Review of Systems Review of Systems: Complete Review of Systems is as stated above, negative, or noncontributory. Physical Exam Physical Exam: General: A&Ox3. HENT: Normocephalic. Atraumatic. Eyes: PER. Conjunctiva pink, sclera injected Neck: No JVD. Heart: Irregularly irregular at 100 bpm Lungs: Decreased. Diminished. Faint posterior upper expiratory wheeze. Abdomen: +BS. Soft. Nontender. No masses or organomegaly. Extremities: 1-2+ distal lower extremity edema. Limited neurological examination is without focal deficits. Pulses: Posterior tibial=1/4. Results & Data Vital Signs (Past 12 Hours) Vital Signs Temp Pulse Pulse Resp BP Pulse Ox O2 Del Method 05/04/24 08:30 Room Air 05/04/24 08:30 75 05/04/24 07:46 36.8 C 103 H 18 106/76 91 Room Air 05/04/24 03:45 36.8 C 85 18 128/91 93 Room Air 05/03/24 23:31 36.6 C 66 18 125/86 96 Room Air Laboratory Results Intake and Output 05/03/24 05/04/24 05/04/24 22:59 06:59 14:59 Intake Total 300 / 900 Balance 300 / 900 Intake: Oral 300 / 900 Other: # Unmeasured Voids 2 (3) Acute CHF Heart failure type: systolic Qualified Code(s): I50.21 - Acute systolic (congestive) heart failure
[2024-05-04 11:26] LABS: BUN Creatinine Ratio 36.1 (10-20); Calcium 8.7 mg/dl (8.6-10.3); Creatinine Clr Calc Pharmacy 82.5 ml/min; Magnesium 2.4 mg/dl (1.7-2.4); Potassium 4.4 mmol/L (3.5-5.1)
[2024-05-04] MEDS: FUROSEMIDE 40 MG/4 ML VIAL IV SCH (12:08)
--- NOTE | 2024-05-04 15:39 | Hospitalist Progress Note ---
Date of Service May 04, 2024 Assessment & Plan (1) New onset a-fib: Plan: Ventricular response rate is now controlled. Telemetry. Appreciate cardiology consultation and recommendations (2) COVID-19: Plan: Positivity by nasal swab. Supportive care (3) Acute CHF: Plan: Acute systolic CHF. Ejection fraction is 25%. Telemetry. Appreciate cardiology consultation and recommendations. Parenteral Lasix diuresis today. Repeat chest x-ray again tomorrow, May 05. Monitor intake and output (4) Diabetic peripheral neuropathy associated with type 2 diabetes mellitus: Plan: ADA diet. Sliding scale insulin coverage as needed. Basal insulin therapy. (5) Diabetic ulcer of toe of left foot: Plan: Supportive care. Diabetes control Plan Hopeful discharge to home tomorrowMay 05 Admission and Anticipated Discharge Date Admission Date: April 26, 2024 Subjective Alert and oriented. No distress. Case discussed with cardiology. Parenteral Lasix ordered today, May 04. Chest x-ray done today, May 04, reveals continued congestive heart failure. He remains on room air however. Atrial fibrillation rate is now controlled. Hopefully he can go home tomorrowMay 05 Review of Systems 2 Review of Systems: Constitutionalno fever or chills ENTno blurred vision, no double vision, no epistaxis, no sore throat Respiratoryno cough, no wheezing. Dyspnea on exertion Cardiacno palpitations, no chest pain, no syncope Toni nausea, vomiting, diarrhea, melena, hematochezia GUno urinary retention, no urinary incontinence, no dysuria, no hematuria Musculoskeletalno joint pain, no muscle tenderness Skinno bruising, no rashes, no pruritus Neurono isolated weakness, no paresthesia, no weakness Psychno depression, no anxiety Physical Exam 2 Physical Exam: General-alert and oriented x3, no fever, no chills HEENT-head atraumatic and normocephalic, pupils equal and reactive to light, extraocular muscles intact Neck-no lymphadenopathy or thyromegaly, trachea midline Chest-diminished breath sounds at bilateral bases. Faint bilateral inspiratory rales. No wheezing or rhonchi Cardiac-irregular rhythm. Controlled rate. Normal S1 and S2 Abdomen-normal bowel sounds, no hepatosplenomegaly [id number]-0-1+ pitting edema bilateral lower extremities below the knees. Neuro-cranial nerves II through XII intact, motor and sensory function within normal limits, strength symmetrical, no focal deficits Psych-normal affect, normal mood Results & Data Results & Data Vital Signs (Past 12 Hours) Vital Signs Temp Pulse Pulse Resp BP Pulse Ox O2 Del Method 05/04/24 15:21 36.5 C 108 H 19 141/76 H 91 Room Air 05/04/24 11:25 36.8 C 101 H 20 102/64 94 Room Air 05/04/24 10:25 75 05/04/24 08:30 Room Air 05/04/24 08:30 75 05/04/24 07:46 36.8 C 103 H 18 106/76 91 Room Air 05/04/24 03:45 36.8 C 85 18 128/91 93 Room Air Laboratory Results 05/03/24 07:43 05/04/24 07:52 PG Care Time/CCT Total # of Minutes Spent Total Time Spent with Patient: Total time spent is greater than 50% in coordination of care (as documented) at patient's floor/unit and/or counseling patient: Coding Level of Care Code 13690 SUB INP/OBS CARE 3/50MIN Diagnoses New onset a-fib I48.91 COVID-19 U07.1 Acute systolic congestive heart failure I50.21 Heart failure type: systolic Diabetic peripheral neuropathy associated with type 2 diabetes mellitus E11.42 Diabetic ulcer of toe of left foot associated with type 2 diabetes mellitus, limited to breakdown of skin E11.621; L97.521 Diabetes mellitus type: type 2 Non-pressure ulcer stage: limited to breakdown of skin (3) Acute CHF Heart failure type: systolic Qualified Code(s): I50.21 - Acute systolic (congestive) heart failure (5) Diabetic ulcer of toe of left foot Diabetes mellitus type: type 2 Non-pressure ulcer stage: limited to breakdown of skin Qualified Code(s): E11.621 - Type 2 diabetes mellitus with foot ulcer; L97.521 - Non-pressure chronic ulcer of other part of left foot limited to breakdown of skin
[2024-05-04] MEDS: METOPROLOL SUCC 50MG EXT REL TAB PO SCH (20:01)
--- NOTE | 2024-05-05 08:28 | XRay Report ---
EXAM: XR chest 1V portable CLINICAL HISTORY: F/U. TECHNIQUE: An X-ray image of the chest is obtained using an AP projection. COMPARISON: 04/28/2024. FINDINGS: Pulmonary Parenchyma: Bilateral prominent broncho vascular markings with homogenous opacification of right lung lower zone and blunting of right costophrenic angle suggestive of mild right pleural effusion with subsegmental collapse/consolidation. Blunted left costophrenic angle. A small left effusion can't be ruled out. No pneumothorax, Heart and Mediastinum: Apparent cardiomegaly with mediastinal widening. Bony Thorax: Thoracic spondylosis. Soft Tissues: Midline sternotomy sutures. IMPRESSION: 1. Bilateral prominent broncho vascular markings with homogenous opacification of right lung lower zone and blunting of right costophrenic angle suggestive of mild right pleural effusion with subsegmental collapse/consolidation. 2. Blunted left costophrenic angle. A small left effusion can't be ruled out. 3. Apparent cardiomegaly with mediastinal widening. 4. Interval mild regression of right pleural effusion when compared to a prior study dated 04/28/2024. Electronically signed by Jose Cruz Chu 05-05-2024 08:28 AM
[2024-05-05] MEDS: DIGOXIN 0.125 MG TAB PO SCH (10:37)
--- NOTE | 2024-05-05 10:40 | Cardiology Progress Note ---
Date of Service May 05, 2024 Assessment & Plan (1) COVID-19: (2) New onset a-fib: (3) Acute CHF: (4) Bicuspid aortic valve: (5) H/O Ross procedure: (6) Ascending aorta dilatation: (7) Apnea, sleep: Plan Complex 73-year-old male admitted with COVID-19 pneumonia, new onset acute decompensated systolic congestive heart failure with LVEF 25-30%, and new onset atrial fibrillation with rapid ventricular response of unknown duration. [id number] Score 7 points. Hypotensive response to IV diltiazem noted in ER. Amiodarone initially prescribed, discontinued due to prolonged QT interval. Volume status is hypervolemic with lower extremity edema aggravated by pulmonary valve replacement and associated pulmonary hypertension, underlying valvular disease, superimposed pulmonary infection, new onset systolic dysfunction. 05/05/2024 Issues as outlined above. Ongoing difficulties with atrial fibrillation, mixed diastolic and systolic heart failure with known valvular disease. Recommendations: * Change digoxin to 125 mcg by mouth on MWF * Continue Eliquis 5 mg twice a day * Continue losartan 12.5 mg/day * No Diltiazem, lisinopril, or HCTZ (discontinued this admission) * Can likely change IV furosemide to torsemide 20 mg p.o. daily CHF instructions Admission and Anticipated Discharge Date Admission Date: April 26, 2024 Subjective Patient was seen and examined. Lower extremity edema somewhat improved with diuresis overnight. Heart rate still variable but trending towards better control. Less dyspneic. Physical Exam Physical Exam: G Constitutional: + ill appearing and + obese Respiratory: no respiratory distress and no labored breathing Auscultation: + crackles, + rhonchi (Bilateral) and + wheezes (At bases) Cardiovascular: Rate/Rhythm: + tachycardic and + irregularly irregular Heart Sounds: normal S1, normal S2 and + murmur Vessels: no JVD Extremities: + edema (1-2+ bilateral edema) Gastrointestinal (Abdomen): Inspection/Auscultation: abdomen normal to inspection; abdomen not distended Neurologic: CN's II-XI intact bilaterally and moves all extremities; no focal motor deficits Results & Data Vital Signs (Past 12 Hours) Vital Signs Temp Pulse Resp BP Pulse Ox O2 Del Method 05/05/24 07:50 36.5 C 97 H 18 119/74 95 Room Air 05/05/24 07:39 Room Air 05/05/24 04:00 36.2 C L 103 H 18 116/74 91 Room Air 05/04/24 23:52 36.5 C 92 H 18 118/74 94 Room Air Laboratory Results Laboratory Results - last 24 hr 05/04/24 05/04/24 05/04/24 07:52 11:13 16:21 Sodium 141 Potassium 4.4 Chloride 100 Carbon Dioxide 35 H Anion Gap 6 BUN 39 H Creatinine 1.08 Est Cr Clr Drug Dosing 82.5 eGFR 73.37 BUN/Creatinine Ratio 36.1 H Glucose 108 H POC Glucose 185 H 152 H Calcium 8.7 Magnesium 2.4 05/04/24 05/05/24 20:05 07:44 Sodium Potassium Chloride Carbon Dioxide Anion Gap BUN Creatinine Est Cr Clr Drug Dosing eGFR BUN/Creatinine Ratio Glucose POC Glucose 201 H 219 H Calcium Magnesium (3) Acute CHF Heart failure type: systolic Qualified Code(s): I50.21 - Acute systolic (congestive) heart failure
--- NOTE | 2024-05-05 10:57 | Discharge Summary ---
Discharge Summary Date of Service May 05, 2024 Principal Dx & Hospital Course #1 = Principal Diagnosis (1) New onset a-fib: Ventricular response rate is now controlled. Telemetry. Appreciate cardiology consultation and recommendations (2) COVID-19: Positivity by nasal swab. Supportive care (3) Acute CHF: Acute systolic CHF. Ejection fraction is 25%. Telemetry. Appreciate cardiology consultation and recommendations. Parenteral Lasix diuresis has helped. Lasix will replace hydrochlorothiazide at discharge. Repeat chest x- ray done today, May 05, looks better. (4) Diabetic peripheral neuropathy associated with type 2 diabetes mellitus: ADA diet. Sliding scale insulin coverage as needed. Basal insulin therapy. (5) Diabetic ulcer of toe of left foot: Supportive care. Diabetes control Plan Home today, May 05 Admission HPI Per Admitting Provider Is a 73-year-old male with a history of type 2 diabetes with retinopathy, peripheral neuropathy CVA, hypertension valvular heart disease who presents to the hospital today on account of worsening shortness of breath. According to the patient she recently developed cough fever and chills and found out that he had COVID. He went to see his primary care doctor about a week ago on 21 April where he was started on Paxlovid. However he said the shortness of breath continued to get worse, he also noticed orthopnea, PND and also leg swelling. What made him come to the hospital was palpitations coupled with the above symptoms. Here in the emergency department, he was found to be in A-fib with RVR, heart rate was in the 130s blood pressure 104/67. Chest x-ray was done, which showed evidence of cardiomegaly with interstitial pulmonary edema and also layering pleural effusion and bibasilar consolidation right greater than left. He was given a dose of IV diltiazem and Lasix and will be admitted to the hospital for the management. Discharge Exam General-alert and oriented x3, no fever, no chills HEENT-head atraumatic and normocephalic, pupils equal and reactive to light, extraocular muscles intact Neck-no lymphadenopathy or thyromegaly, trachea midline Chest-diminished breath sounds at bilateral bases. Faint bilateral inspiratory rales. No wheezing or rhonchi Cardiac-irregular rhythm. Controlled rate. Normal S1 and S2 Abdomen-normal bowel sounds, no hepatosplenomegaly Extremities-1+ pitting edema bilateral lower extremities below the knees. Neuro-cranial nerves II through XII intact, motor and sensory function within normal limits, strength symmetrical, no focal deficits Psych-normal affect, normal mood Discharge Plan Discharge Items Patient Disposition: Home - Self-Care Reason For Visit: AFIB Discharge Diagnosis: New onset atrial fibrillation with rapid ventricular rate, acute systolic congestive heart failure Activity: Resume your previous activity Non-emergency contact: Primary Care Provider and [employer] Call non-emergency contact if: you have any medication questions Follow-up/Referrals: Connor Saucedo MD [Primary Care Provider] - Diet: Carb Consistent or DM2 and Heart Healthy Addtl Attending Provider Instructions: Lasix replaces hydrochlorothiazide. Metoprolol dosage has been increased. New medications include digoxin and losartan. New prescriptions have been sent to [facility] pharmacy in [place] Pending Studies at Discharge: No Stand-Alone Forms: [place] [facility] [place] [employer], Smoking Cessation Medications and DC Order Prescriptions: New Eliquis 5 mg Tablet 5 mg PO BID Qty: 60 5RF losartan 25 mg Tablet 12.5 mg PO QPM Qty: 20 0RF digoxin [Digitek] 125 mcg (0.125 mg) Tablet 0.125 mg PO MoWeFr Qty: 30 0RF metoprolol succinate 100 mg tablet extended release 24 hr 150 mg PO BID Qty: 90 0RF furosemide [Lasix] 40 mg tablet 40 mg PO DAILY Qty: 30 0RF Continued (DME) blood sugar diagnostic Strip See Dose Instructions .ROUTE .MEDSUPPLY Qty: 450 3RF Rx Instructions: Test blood sugars five times daily or as directed ergocalciferol (vitamin D2) 1,250 mcg (50,000 unit) capsule 50,000 unit PO WEEKLY Qty: 12 3RF Rx Instructions: saturdays atorvastatin 80 mg tablet 80 mg PO QPM gabapentin 300 mg capsule 300 mg PO BID 90 Days Qty: 180 3RF fluoxetine 20 mg capsule 20 mg PO QAM Qty: 90 3RF pantoprazole 40 mg tablet,delayed release (DR/EC) 40 mg PO QAM Qty: 90 3RF (DME) FreeStyle Veronika 2 Sensor Kit See Rx Instructions .Route Qty: 2 5RF Rx Instructions: Change every 14 days insulin aspart U-100 [Novolog FlexPen U-100 Insulin] 100 unit/mL (3 mL) insulin pen See Rx Instructions SQ UD MDD 120 units 90 Days Qty: 120 0RF Rx Instructions: max of 40 units with meals; reduce to 20 units if smaller meals; HOLD if blood sugar is low; TDD 120 units Toujeo Max U-300 SoloStar 300 unit/mL (3 mL) insulin pen 70 unit subcut BID Qty: 42 3RF aspirin 81 mg tablet 81 mg PO PM Qty: 30 (DME) pen needle, diabetic [BD Ultra-Fine Short Pen Needle] 31 gauge x 5/16" needle See Dose Instructions .ROUTE .MEDSUPPLY Qty: 30 Rx Instructions: Use to inject insulin four times a day (DME) lancets [OneTouch UltraSoft Lancets] [facility] [place] See Dose Instructions .ROUTE .MEDSUPPLY Qty: 50 Rx Instructions: test blood glucose four times a day Discontinued hydrochlorothiazide 25 mg tablet 25 mg PO QAM Qty: 90 3RF lisinopril 40 mg tablet 40 mg PO QAM Qty: 90 3RF diltiazem HCl 240 mg capsule,extended release 24 hr 240 mg PO DAILY Qty: 90 3RF Discharge Orders: Discharge Order- CHF (Routine); Ordered 05/05/24 Ordered By: Enmanuel Temple Admission Data Admit Date/Time: 04/26/24 16:49 Attending Provider: Enmanuel Temple Admit Provider: Sujatha Burrell Primary Care Provider: Connor Saucedo Other Providers: Sujatha Burrell; Margarito Werner Hospital Stay Data Consultations 04/26/24 16:42 ED Decision to Admit Stat 04/26/24 19:32 Consult Cardiology Routine Pending Results Patient Have Any Pending Studies at Discharge: No Discharge Instructions Given to Patient (Per Discharging Provider) Lasix replaces hydrochlorothiazide. Metoprolol dosage has been increased. New medications include digoxin and losartan. New prescriptions have been sent to [facility] pharmacy in [place] Total Time Total Time Spent Total Time Spent (In Minutes): 50 minutes Coding Level of Care Code 77265 INP/OBS DISCH >30 MIN Diagnoses New onset a-fib I48.91 COVID-19 U07.1 Acute systolic congestive heart failure I50.21 Heart failure type: systolic Diabetic peripheral neuropathy associated with type 2 diabetes mellitus E11.42 Diabetic ulcer of toe of left foot associated with type 2 diabetes mellitus, limited to breakdown of skin E11.621; L97.521 Diabetes mellitus type: type 2 Non-pressure ulcer stage: limited to breakdown of skin
[2024-05-05 11:36] VITALS: BP 124/71; PULSE 79; RESP 16; TEMP 97.9; O2SAT 97
[2024-05-05 11:38] LABS: BUN Creatinine Ratio 30.7 (10-20); Calcium 9.1 mg/dl (8.6-10.3); Creatinine Clr Calc Pharmacy 86.8 ml/min; Potassium 4.5 mmol/L (3.5-5.1)
== END 2024-05-05 13:48 | disposition home health service (06) | DRG 291 ==
LOC: ED 13:36 → 2S 16:49 → SUATTDRO 16:49 → 2S 17:25

== ENCOUNTER 2024-05-09 11:39 | Inpatient (IN) ==
--- NOTE | 2024-05-09 12:08 | Emergency Department Note ---
Impression & Plan Weakness, Acute hypotension ED Provider Note NAME: CAMI DISLA AGE: 73 SEX: M : 1950 ARRIVES VIA: Walk-In INFORMANT: Patient, ED PROVIDER(S): Jv Valdes DO CHIEF COMPLAINT: Weakness HPI: The patient is a 73-year-old male who presented to the emergency department for an evaluation of generalized weakness. The patient was recently admitted to our facility. He has a history of atrial fibrillation as well as pulmonary edema. He states he has not been feeling well. He was started on new medications and they are mostly heart medications. The patient denies having any fever or hemoptysis. He does complain of a dry cough. He did just get over COVID-19 as well as pneumonia. He is not currently on any antibiotics. He denies having any trauma. He does have leg swelling which is not new for him. ROS: See above HPI for pertinent positives & negatives. A total of 10 systems reviewed and were otherwise negative. PAST MEDICAL HISTORY: See Below PAST SURGICAL HISTORY: See Below FAMILY HISTORY: See Below SOCIAL HISTORY: See Below HOME MEDICATIONS: See Below ALLERGIES: See Below VITALS: See Below PHYSICAL EXAMINATION: GENERAL: Patient is awake alert in no acute distress patient is resting comfortably and showing no signs of anxiety EYES: The conjunctivae are clear. The pupils are round and reactive. EARS, NOSE, MOUTH AND THROAT: The nose is without any evidence of any deformity. Mucous membranes are moist. Tongue is midline. NECK: The neck is nontender and supple. RESPIRATORY: Diminished breath sounds are noted in the left lung field. There is no tachypnea or conversational dyspnea. CARDIOVASCULAR: Tachycardic and irregular heart sounds were noted to auscultation. There is no definite murmur. GASTROINTESTINAL: The abdomen is soft. Abdomen is nontender. MUSCULOSKELETAL/EXTREMITIES: There is no evidence of gross deformity full range of motion is noted in the hips and shoulders. SKIN: There is no obvious evidence of any rash. Pedal edema was noted bilaterally. Skin was warm and dry. NEUROLOGIC: Patient is awake alert and oriented x3. MEDICAL DECISION MAKING: The patient is a 73-year-old male who was recently discharged to our facility. The patient has a history of atrial fibrillation. Has been short of breath and he presents to the emergency department because of shortness of breath and generalized weakness. He was hypotensive. Laboratory studies were obtained. I discussed the patient's laboratory and radiographic studies with him. I also discussed this case with the on-call [facility] hospitalist. They have agreed to evaluate the patient in the emergency department. No specific cause of the patient's weakness and hypotension could be found but he did respond well to a fluid bolus. It is possible this is related to the patient's medications that were started on his recent admission. Triage Nursing notes reviewed. Prior medical records reviewed Vital Signs: reviewed and remarkable for hypotension initially. Differential diagnosis: Infection, dehydration, metabolic abnormality, hypo/hyperglycemia, electrolyte disturbance, anemia, hypoxia, cardiac sources, intracerebral event, toxicologic, neurologic, as well as other pathologies. ER treatment provided: See below Diagnostics interpreted by me: ECG: EKG was obtained in the emergency department. My interpretation is atrial fibrillation at 126 bpm. Left bundle branch block pattern was noted. PVCs were noted. This was compared to a tracing from April 26, 2024. There was an increase in the rate compared to previous tracing. Cardiac Monitoring: An order was placed for continuous cardiac monitoring. The monitor shows a rate of 100 bpm with atrial fibrillation. Laboratory studies: As stated above and show below. Imaging studies: See below. Radiographic imaging was reviewed by myself Consultation(s): Dr. Thornton was notified about the patient. She will evaluate the patient in the emergency department. I discussed this case with Dr. Temple who is on for the [facility] hospitalist group. Past Med/Surg History Problem List (Updated 05/09/24 @ 14:27 by Cami Temple MD) Type 2 diabetes mellitus Chronic systolic CHF (congestive heart failure) Acute hypotension (Acute) Weakness (Acute) Pulmonary vascular congestion (Acute) Atrial fibrillation with rapid ventricular response (Acute) Aspiration into airway Apnea, sleep Ascending aorta dilatation H/O Ross procedure Bicuspid aortic valve Hypoxia COVID-19 Acute CHF New onset a-fib Diabetic ulcer of toe of right foot (Acute) Acquired hammer toe (Chronic) Diabetic ulcer of toe of left foot (Acute) Traumatic open wound of right lower leg (Acute) Traumatic open wound of left lower leg (Acute) Diabetic peripheral neuropathy associated with type 2 diabetes mellitus Non-proliferative diabetic retinopathy, both eyes Pre-ulcerative calluses Loss of protective sensation of skin of foot Personal history of diabetic foot ulcer Obesity History of colon polyps Uncontrolled type 2 diabetes mellitus with insulin therapy (Chronic) Mild dilation of ascending aorta Aortic stenosis (Chronic) follows Dr. 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 Sevilla in a few years History of cholecystectomy Family History Mother Diabetes Valvular heart disease Heart disease Hypertension Brother Coronary heart disease Diabetes Father Hypertension Prostate cancer Denies family history of Ovarian cancer Breast cancer Colorectal cancer Social History Smoking Status: Unknown if ever smoked Tobacco Type: Cigarettes Age Started Using Tobacco: 18; Age Quit Using Tobacco: 44; packs per day: 0.25; Cigarettes Per Day: 1/2 ppd; Second Hand Exposure: No; Do You Dip or Chew Tobacco: No; Hx Alcohol Use: No Hx Substance Use: No Preferred Language: Jordanian Communication Ability: Effective Visual Impairment: Partially Limited Hearing Ability: Normal Pecan Gatherer Required: No Beliefs That Will Affect Care: None marital status: Current Living Situation: Spouse current occupational status: retired Feels Safe at Home: Yes Childhood Exposure to Second-Hand Smoke: No Diet: regular caffeine: Yes during the past year weight has: remained stable Dental Care, Regularly: No Physical Activity Frequency: Daily Seatbelt Use: never Assistive Devices: None Allergies Allergies Allergy/AdvReac Type Severity Reaction Status Date / Time metformin Allergy Mild DOESNT Verified 05/09/24 15:00 REMEMBER repaglinide Allergy Mild DOESNT Verified 05/09/24 15:00 REMEMBER simvastatin Allergy Mild DOESNT Verified 05/09/24 15:00 REMEMBER Iodinated Contrast Media Allergy Unknown hives, Verified 05/09/24 15:00 sick to stomach Home Meds Home Medications Medication Instructions Recorded Confirmed lancets (OneTouch UltraSoft #50 ea 01/06/19 05/07/24 Lancets) pen needle, diabetic 31 gauge x #30 ea 01/06/19 05/07/24 5/16" (BD Ultra-Fine Short Pen Needle) atorvastatin 80 mg tablet 80 mg PO QPM 07/18/23 05/09/24 aspirin 81 mg tablet,delayed 81 mg PO QPM 05/09/24 05/09/24 release furosemide 40 mg tablet (Lasix) 40 mg PO QAM 05/09/24 05/09/24 Previous Rx's Medication Instructions Recorded blood sugar diagnostic #450 ea 05/29/21 ergocalciferol (vitamin D2) 1,250 50,000 unit PO WEEKLY #12 caps 01/06/23 mcg (50,000 unit) capsule fluoxetine 20 mg capsule 20 mg PO QAM #90 caps 01/06/24 gabapentin 300 mg capsule 300 mg PO BID 90 days #180 caps 01/06/24 pantoprazole 40 mg tablet,delayed 40 mg PO QAM #90 tabs 01/06/24 release flash glucose sensor (FreeStyle #2 ea 01/07/24 Veronika 2 Sensor kit) insulin aspart U-100 100 unit/mL See Rx Instructions subcut UD 90 01/13/24 (3 mL) subcutaneous pen (Novolog days #120 mL FlexPen U-100 Insulin aspart) insulin glargine U-300 conc 300 70 unit (0.2333 mL) subcut BID #42 04/12/24 unit/mL (3 mL) subcutaneous pen mL (Toujeo Max U-300 SoloStar) apixaban 5 mg tablet (Eliquis) 5 mg PO BID #60 tabs 05/03/24 digoxin 125 mcg (0.125 mg) tablet 0.125 mg PO MoWeFr #30 tabs 05/05/24 (Digitek) losartan 25 mg tablet 12.5 mg (1/2 x 25 mg) PO QPM #20 05/05/24 tabs metoprolol succinate 100 mg 150 mg (1.5 x 100 mg) PO BID #90 05/05/24 tablet,extended release 24 hr tabs Results & Data (ED) Vital Signs Vital Signs - 24 hr 05/09/24 11:45 05/09/24 12:07 05/09/24 12:15 Temperature 36.9 C Temperature Source Temporal Artery Scan Pulse Rate 113 H 116 H 116 H Pulse Rate [Left Apical] Pulse Rate [Right Finger] Respiratory Rate 20 20 Respiratory Effort / Characteristics Respiratory Depth Normal Respiratory Pattern Blood Pressure 87/67 L Blood Pressure [Right Arm] Blood Pressure Mean 73 Blood Pressure Mean [Right Arm] Pulse Oximetry 93 93 Oxygen Delivery Method Room Air Room Air Oxygen Flow Rate Sepsis Recent Fever Within 48 Hours No Sepsis New/Unexplained Change in Mental Status No Sepsis Action Taken by Nursing No Action Required 05/09/24 12:15 05/09/24 12:17 05/09/24 13:43 Temperature Temperature Source Pulse Rate Pulse Rate [Left Apical] Pulse Rate [Right Finger] 110 H 118 H Respiratory Rate 20 16 Respiratory Effort / Characteristics Non-Labored Spontaneous Non-Labored Spontaneous Non-Labored Spontaneous Respiratory Depth Normal Normal Normal Respiratory Pattern Regular Blood Pressure Blood Pressure [Right Arm] 106/83 Blood Pressure Mean Blood Pressure Mean [Right Arm] 90 Pulse Oximetry 93 93 Oxygen Delivery Method Room Air Room Air Room Air Oxygen Flow Rate Sepsis Recent Fever Within 48 Hours Sepsis New/Unexplained Change in Mental Status Sepsis Action Taken by Nursing 05/09/24 15:04 05/09/24 15:43 05/09/24 15:43 Temperature Temperature Source Pulse Rate Pulse Rate [Left Apical] 122 H Pulse Rate [Right Finger] 122 H Respiratory Rate 22 17 Respiratory Effort / Characteristics Non-Labored Spontaneous Non-Labored Spontaneous Respiratory Depth Normal Normal Respiratory Pattern Regular Regular Blood Pressure Blood Pressure [Right Arm] 98/80 L 125/71 Blood Pressure Mean Blood Pressure Mean [Right Arm] 86 89 Pulse Oximetry 92 92 92 Oxygen Delivery Method Room Air Room Air Room Air Oxygen Flow Rate 0 Sepsis Recent Fever Within 48 Hours Sepsis New/Unexplained Change in Mental Status Sepsis Action Taken by Nursing 05/09/24 16:04 Temperature Temperature Source Pulse Rate 100 H Pulse Rate [Left Apical] Pulse Rate [Right Finger] Respiratory Rate Respiratory Effort / Characteristics Respiratory Depth Respiratory Pattern Blood Pressure Blood Pressure [Right Arm] Blood Pressure Mean Blood Pressure Mean [Right Arm] Pulse Oximetry Oxygen Delivery Method Oxygen Flow Rate Sepsis Recent Fever Within 48 Hours Sepsis New/Unexplained Change in Mental Status Sepsis Action Taken by [facility] Medications Current Medication List: was personally reviewed by me Laboratory Data Attestation: I reviewed the patient's lab results. 05/09/24 12:00 05/09/24 12:00 Lab Results 05/09/24 05/09/24 05/09/24 Range/Units 12:00 12:03 12:32 WBC 9.08 (4.8-10.8) K/ul RBC 4.49 L (4.70-6.10) M/uL Hgb 12.9 L (14.0-18.0) g/dl Hct 39.4 L (42.0-52.0) % MCV 87.8 (80.0-100.0) fL MCH 28.7 (25.0-34.0) pg MCHC 32.7 (32.0-36.0) g/dL RDW Std Deviation 46.0 (36.4-46.3) fL RDW Coeff of Vandana 14.5 (11.5-14.5) % Plt Count 217 (130-400) K/uL MPV 12.0 (9.4-12.4) fL Immature Gran % (Auto) 0.7 % Neut % (Auto) 68.2 % Lymph % (Auto) 18.4 % [place] % (Auto) 10.4 % Eos % (Auto) 2.2 % Baso % (Auto) 0.1 % Neut # (Auto) 6.20 (1.40-6.50) K/uL Lymph # (Auto) 1.67 (1.20-3.40) K/uL [place] # (Auto) 0.94 H (0.11-0.59) K/uL Eos # (Auto) 0.20 (0.00-0.50) K/uL Baso # (Auto) 0.01 (0.00-0.20) K/uL Immature Gran # (Auto) 0.06 (0.01-0.20) K/uL PT 12.5 H (9.0-12.0) Seconds INR 1.2 H (0.9-1.1) APTT 27 (21-31) Seconds PTT Ratio 1.0 VBG pH 7.46 H (7.36-7.41) VBG pCO2 46 (38-50) mmHg VBG pO2 57 mmHg VBG HCO3 33 mmol/L VBG O2 Saturation 90.9 % VBG Base Excess 7.7 mEq/L Sodium 139 (136-145) mmol/L Potassium 3.9 (3.5-5.1) mmol/L Chloride 102 (98-107) mmol/L Carbon Dioxide 30 (21-32) mmol/L Anion Gap 7 (3-11) BUN 18 (6-23) mg/dl Creatinine 1.07 (0.6-1.4) mg/dl Est Cr Clr Drug Dosing 80.7 ml/min eGFR 74.19 BUN/Creatinine Ratio 16.8 (10-20) Glucose 97 (70-99(Fasting)) mg/dl Lactate 1.7 (0.4-2.0) mmol/L Calcium 8.7 (8.6-10.3) mg/dl Magnesium 1.8 (1.7-2.4) mg/dl Total Bilirubin 1.2 H (0.2-1.0) mg/dl Direct Bilirubin 0.3 H (0-0.2) mg/dl AST 30 (13-39) U/L ALT 90 H (7-52) U/L Alkaline Phosphatase 138 H (34-104) U/L Troponin I High Sens 20.9 H (0-20) pg/ml Total Protein 6.5 (6.0-8.3) gm/dl Albumin 3.6 (3.4-5.0) gm/dl Procalcitonin < 0.02 (0-0.5) ng/ml Urine Color Urine Appearance (Clear) Urine pH (4.5-7.5) Ur Specific [place] (1.000-1.030) Urine Protein (Negative) Urine Glucose (UA) (Negative) Urine Ketones (Negative) Urine Blood (Negative) Urine Nitrite (Negative) Urine Bilirubin (Negative) Urine Urobilinogen (Negative) Ur Leukocyte Esterase (Negative) Digoxin 0.3 L (0.8-2.0) ng/ml 05/09/24 05/09/24 Range/Units 13:35 14:15 WBC (4.8-10.8) K/ul RBC (4.70-6.10) M/uL Hgb (14.0-18.0) g/dl Hct (42.0-52.0) % MCV (80.0-100.0) fL MCH (25.0-34.0) pg MCHC (32.0-36.0) g/dL RDW Std Deviation (36.4-46.3) fL RDW Coeff of Vandana (11.5-14.5) % Plt Count (130-400) K/uL MPV (9.4-12.4) fL Immature Gran % (Auto) % Neut % (Auto) % Lymph % (Auto) % [place] % (Auto) % Eos % (Auto) % Baso % (Auto) % Neut # (Auto) (1.40-6.50) K/uL Lymph # (Auto) (1.20-3.40) K/uL [place] # (Auto) (0.11-0.59) K/uL Eos # (Auto) (0.00-0.50) K/uL Baso # (Auto) (0.00-0.20) K/uL Immature Gran # (Auto) (0.01-0.20) K/uL PT (9.0-12.0) Seconds INR (0.9-1.1) APTT (21-31) Seconds PTT Ratio VBG pH (7.36-7.41) VBG pCO2 (38-50) mmHg VBG pO2 mmHg VBG HCO3 mmol/L VBG O2 Saturation % VBG Base Excess mEq/L Sodium (136-145) mmol/L Potassium (3.5-5.1) mmol/L Chloride (98-107) mmol/L Carbon Dioxide (21-32) mmol/L Anion Gap (3-11) BUN (6-23) mg/dl Creatinine (0.6-1.4) mg/dl Est Cr Clr Drug Dosing ml/min eGFR BUN/Creatinine Ratio (10-20) Glucose (70-99(Fasting)) mg/dl Lactate (0.4-2.0) mmol/L Calcium (8.6-10.3) mg/dl Magnesium (1.7-2.4) mg/dl Total Bilirubin (0.2-1.0) mg/dl Direct Bilirubin (0-0.2) mg/dl AST (13-39) U/L ALT (7-52) U/L Alkaline Phosphatase (34-104) U/L Troponin I High Sens 24.1 H (0-20) pg/ml Total Protein (6.0-8.3) gm/dl Albumin (3.4-5.0) gm/dl Procalcitonin (0-0.5) ng/ml Urine Color Yellow Urine Appearance Clear (Clear) Urine pH 8.0 H (4.5-7.5) Ur Specific [place] 1.011 (1.000-1.030) Urine Protein Negative (Negative) Urine Glucose (UA) Negative (Negative) Urine Ketones Negative (Negative) Urine Blood Negative (Negative) Urine Nitrite Negative (Negative) Urine Bilirubin Negative (Negative) Urine Urobilinogen Negative (Negative) Ur Leukocyte Esterase Negative (Negative) Digoxin (0.8-2.0) ng/ml Administered Medications Discontinued Medications Sodium Chloride (Nss) 500 mls @ 999 mls/hr IV .Q31M ONE Stop: 05/09/24 12:30 Last Infusion: 05/09/24 12:50 Dose: Infused Documented By: Admin: 05/09/24 12:19 Dose: 999 mls/hr Documented By: DIO Digoxin 500 mcg/ Syringe 10 mls @ 2 mls/min IV NOW STA Stop: 05/09/24 14:26 Last Admin: 05/09/24 15:07 Dose: 2 mls/min Documented By: DIO Imaging Data Attestation: I personally reviewed and interpreted this imaging study as follows: My Impression: 1 view chest x-ray was obtained in the emergency department. My interpretation is small pleural effusion, final report below. Radiologist's Impression: Chest X-Ray 05/09/24 12:00 XR chest 1V portable CLINICAL HISTORY: Sepsis TECHNIQUE: Single frontal radiograph of the chest was obtained. Comparison: Comparison is made to chest radiograph 05/05/2024 FINDINGS: Median sternotomy wires are unchanged. The cardiomediastinal silhouette is stable. Stable right lower lung airspace opacity. Small right pleural effusion. IMPRESSION: Small right pleural effusion. Right lower lung airspace opacity may represent atelectasis, pneumonia, and/or aspiration. ACT 112: Negative or not required by law. Electronically signed by: Arik Giang M.D. 05/09/2024 12:46 PM Discharge Plan Visit Data Chief Complaint: Shortness of Breath/Dyspnea Stated Complaint: SOB, LOW O2, IRREGULAR HEART RATE ED Provider: Jv Valdes Discharge Problem: Weakness, Acute hypotension Patient Disposition: Being Evaluated by Hospitalist Forms Stand Alone Forms: [facility] Prescriptions Prescriptions: No Action (DME) blood sugar diagnostic Strip See Dose Instructions .ROUTE .MEDSUPPLY Qty: 450 3RF Rx Instructions: Test blood sugars five times daily or as directed ergocalciferol (vitamin D2) 1,250 mcg (50,000 unit) capsule 50,000 unit PO WEEKLY Qty: 12 3RF Rx Instructions: saturdays atorvastatin 80 mg tablet 80 mg PO QPM gabapentin 300 mg capsule 300 mg PO BID 90 Days Qty: 180 3RF fluoxetine 20 mg capsule 20 mg PO QAM Qty: 90 3RF pantoprazole 40 mg tablet,delayed release (DR/EC) 40 mg PO QAM Qty: 90 3RF (DME) FreeStyle Veronika 2 Sensor Kit See Rx Instructions .Route Qty: 2 5RF Rx Instructions: Change every 14 days insulin aspart U-100 [Novolog FlexPen U-100 Insulin] 100 unit/mL (3 mL) insulin pen See Rx Instructions SQ UD MDD 120 units 90 Days Qty: 120 0RF Rx Instructions: max of 40 units with meals; reduce to 20 units if smaller meals; HOLD if blood sugar is low; TDD 120 units Toujeo Max U-300 SoloStar 300 unit/mL (3 mL) insulin pen 70 unit subcut BID Qty: 42 3RF (DME) pen needle, diabetic [BD Ultra-Fine Short Pen Needle] 31 gauge x 5/16" needle See Dose Instructions .ROUTE .MEDSUPPLY Qty: 30 Rx Instructions: Use to inject insulin four times a day (DME) lancets [OneTouch UltraSoft Lancets] [facility] See Dose Instructions .ROUTE .MEDSUPPLY Qty: 50 Rx Instructions: test blood glucose four times a day Eliquis 5 mg Tablet 5 mg PO BID Qty: 60 5RF losartan 25 mg Tablet 12.5 mg PO QPM Qty: 20 0RF digoxin [Digitek] 125 mcg (0.125 mg) Tablet 0.125 mg PO MoWeFr Qty: 30 0RF metoprolol succinate 100 mg tablet extended release 24 hr 150 mg PO BID Qty: 90 0RF aspirin 81 mg Tablet,Delayed Release (Dr/Ec) 81 mg PO QPM furosemide [Lasix] 40 mg tablet 40 mg PO QAM Referrals Referrals: Connor Saucedo MD [Primary Care Provider] -
[2024-05-09] MEDS: SODIUM CHLORIDE 0.9% 500 ML IV ONE (12:19)
[2024-05-09 12:32] LABS: Basophils # (auto) 0.01 K/uL (0.00-0.20); Basophils % (auto) 0.1 %; Eosinophils % (auto) 2.2 %; Hematocrit (blood only) 39.4 % (42.0-52.0); Hemoglobin 12.9 g/dl (14.0-18.0); Immature Granulocytes # (auto) 0.06 K/uL (0.01-0.20); Immature Granulocytes % (auto) 0.7 %; Lymphocytes # (auto) 1.67 K/uL (1.20-3.40); Lymphocytes % (auto) 18.4 %; Mean Corpuscular Hemoglobin 28.7 pg (25.0-34.0); Mean Corpuscular Hgb Conc 32.7 g/dL (32.0-36.0); Mean Corpuscular Volume 87.8 fL (80.0-100.0); Monocytes # (auto) 0.94 K/uL (0.11-0.59); Monocytes % (auto) 10.4 %; Neutrophils % (auto) 68.2 %; Platelet Count 217 K/uL (130-400); RDW Coefficient of Variation 14.5 % (11.5-14.5); Red Blood Count 4.49 M/uL (4.70-6.10); White Blood Count 9.08 K/ul (4.8-10.8)
[2024-05-09 12:39] LABS: Base Excess VBG 7.7 mEq/L; HCO3 VBG 33 mmol/L; Oxygen Saturation VBG 90.9 %; PCO2 VBG 46 mmHg (38-50); PO2 VBG 57 mmHg; pH VBG 7.46 (7.36-7.41)
[2024-05-09 12:47] LABS: Albumin Level 3.6 gm/dl (3.4-5.0); BUN Creatinine Ratio 16.8 (10-20); Bilirubin Direct 0.3 mg/dl (0-0.2); Bilirubin,Total 1.2 mg/dl (0.2-1.0); Calcium 8.7 mg/dl (8.6-10.3); Creatinine Clr Calc Pharmacy 80.7 ml/min; Magnesium 1.8 mg/dl (1.7-2.4); Potassium 3.9 mmol/L (3.5-5.1); Total Protein 6.5 gm/dl (6.0-8.3)
--- NOTE | 2024-05-09 12:47 | XRay Report ---
XR chest 1V portable CLINICAL HISTORY: Sepsis TECHNIQUE: Single frontal radiograph of the chest was obtained. Comparison: Comparison is made to chest radiograph 05/05/2024 FINDINGS: Median sternotomy wires are unchanged. The cardiomediastinal silhouette is stable. Stable right lowe r lung airspace opacity. Small right pleural effusion. IMPRESSION: Small right pleural effusion. Right lower lung airspace opacity may represent atelectasis, pneumonia, and/or aspiration. ACT 112: Negative or not required by law. Electronically signed by: Arik Giang M.D. 05/09/2024 12:46 PM
[2024-05-09 12:51] LABS: INR 1.2 (0.9-1.1); Partial Thromboplastin Time 27 Seconds (21-31); Prothrombin Time 12.5 Seconds (9.0-12.0)
[2024-05-09 12:54] LABS: Troponin I High Sensitivity 20.9 pg/ml (0-20)
[2024-05-09 14:01] LABS: Appearance Urine Clear (Clear); Bilirubin Urine Negative (Negative); Blood Urine Negative (Negative); Color Urine Yellow; Glucose Urine UA Negative (Negative); Ketones Urine Negative (Negative); Leukocyte Esterase Urine Negative (Negative); Nitrite Urine Negative (Negative); Protein Urine Negative (Negative); Specific Gravity Urine 1.011 (1.000-1.030); Urobilinogen Urine Negative (Negative)
--- NOTE | 2024-05-09 14:28 | History & Physical Report ---
Date of Service May 09, 2024 Assessment & Plan (1) Atrial fibrillation with rapid ventricular response: Plan: Subtherapeutic digoxin levels. 1 dose of intravenous digoxin administered in the ED. Will increase oral dose starting tomorrow, May 10. Serial digoxin levels. Telemetry (2) Weakness: Plan: Should improve with control of atrial fibrillation. Will pursue OT and PT evaluations if necessary (3) Chronic systolic CHF (congestive heart failure): Plan: Known ejection fraction of 25%. Admission chest x-ray today looks better than the chest x-ray when he was recently discharged. He is now taking Lasix 40 mg daily which continues. Monitor intake and output (4) Type 2 diabetes mellitus: Plan: ADA diet. Basal insulin therapy. Sliding scale coverage Plan Hopeful discharge back to home on a higher dose of oral digoxin within the next day or 2 History of Present Illness Chief Complaint: Palpitations, weakness Primary Care Provider: Connor Saucedo MD 73-year-old male who was recently discharged after treatment for uncontrolled atrial fibrillation and systolic CHF. He is complaining of palpitations and can feel his heart beat rapidly in his ears. He is also has generalized weakness. Digoxin level is markedly low at 0.3. He was recently started on digoxin in a low dose fashion every other day. 1 dose of IV digoxin ordered and oral dosage has been increased. Current chest x-ray looks better than his x-ray at the time of discharge. The CHF is resolving. Other medications will remain the same. He denies chest pain. He is placed in observation status with telemetry for now Allergies Allergy/AdvReac Type Severity Reaction Status Date / Time metformin Allergy Mild DOESNT Verified 04/26/24 15:41 REMEMBER repaglinide Allergy Mild DOESNT Verified 04/26/24 15:41 REMEMBER simvastatin Allergy Mild DOESNT Verified 04/26/24 15:41 REMEMBER Iodinated Contrast Media Allergy Unknown hives, Verified 04/26/24 15:41 sick to stomach Home Medications Medication Instructions Recorded Confirmed Type aspirin 81 mg tablet 81 mg PO PM #30 tabs 01/06/19 05/07/24 History lancets (OneTouch UltraSoft #50 ea 01/06/19 05/07/24 History Lancets) pen needle, diabetic 31 gauge x #30 ea 01/06/19 05/07/24 History 5/16" (BD Ultra-Fine Short Pen Needle) blood sugar diagnostic #450 ea 05/29/21 05/07/24 Rx ergocalciferol (vitamin D2) 1,250 50,000 unit PO WEEKLY #12 caps 01/06/23 05/07/24 Rx mcg (50,000 unit) capsule atorvastatin 80 mg tablet 80 mg PO QPM 07/18/23 05/07/24 History fluoxetine 20 mg capsule 20 mg PO QAM #90 caps 01/06/24 05/07/24 Rx gabapentin 300 mg capsule 300 mg PO BID 90 days #180 caps 01/06/24 05/07/24 Rx pantoprazole 40 mg tablet,delayed 40 mg PO QAM #90 tabs 01/06/24 05/07/24 Rx release flash glucose sensor (FreeStyle #2 ea 01/07/24 05/07/24 Rx Veronika 2 Sensor kit) insulin aspart U-100 100 unit/mL See Rx Instructions subcut UD 90 01/13/24 05/07/24 Rx (3 mL) subcutaneous pen (Novolog days #120 mL FlexPen U-100 Insulin aspart) insulin glargine U-300 conc 300 70 unit (0.2333 mL) subcut BID #42 04/12/24 05/07/24 Rx unit/mL (3 mL) subcutaneous pen mL (Toujeo Max U-300 SoloStar) apixaban 5 mg tablet (Eliquis) 5 mg PO BID #60 tabs 05/03/24 05/07/24 Rx digoxin 125 mcg (0.125 mg) tablet 0.125 mg PO MoWeFr #30 tabs 05/05/24 05/07/24 Rx (Digitek) furosemide 40 mg tablet (Lasix) 40 mg PO DAILY #30 tabs 05/05/24 05/07/24 Rx losartan 25 mg tablet 12.5 mg (1/2 x 25 mg) PO QPM #20 05/05/24 05/07/24 Rx tabs metoprolol succinate 100 mg 150 mg (1.5 x 100 mg) PO BID #90 05/05/24 05/07/24 Rx tablet,extended release 24 hr tabs Past Med/Surg History Problem List (Updated 05/09/24 @ 14:27 by Enmanuel Temple MD) Type 2 diabetes mellitus Chronic systolic CHF (congestive heart failure) Acute hypotension (Acute) Weakness (Acute) Pulmonary vascular congestion (Acute) Atrial fibrillation with rapid ventricular response (Acute) Aspiration into airway Apnea, sleep Ascending aorta dilatation H/O Ross procedure Bicuspid aortic valve Hypoxia COVID-19 Acute CHF New onset a-fib Diabetic ulcer of toe of right foot (Acute) Acquired hammer toe (Chronic) Diabetic ulcer of toe of left foot (Acute) Traumatic open wound of right lower leg (Acute) Traumatic open wound of left lower leg (Acute) Diabetic peripheral neuropathy associated with type 2 diabetes mellitus Non-proliferative diabetic retinopathy, both eyes Pre-ulcerative calluses Loss of protective sensation of skin of foot Personal history of diabetic foot ulcer Obesity History of colon polyps Uncontrolled type 2 diabetes mellitus with insulin therapy (Chronic) Mild dilation of ascending aorta Aortic stenosis (Chronic) follows Dr. 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 Sevilla in a few years History of cholecystectomy Family History Mother Diabetes Valvular heart disease Heart disease Hypertension Brother Coronary heart disease Diabetes Father Hypertension Prostate cancer Denies family history of Ovarian cancer Breast cancer Colorectal cancer Social History Smoking Status: Unknown if ever smoked Tobacco Type: Cigarettes Age Started Using Tobacco: 18; Age Quit Using Tobacco: 44; packs per day: 0.25; Cigarettes Per Day: 1/2 ppd; Second Hand Exposure: No; Do You Dip or Chew Tobacco: No; Hx Alcohol Use: No Hx Substance Use: No Preferred Language: Armenian Communication Ability: Effective Visual Impairment: Partially Limited Hearing Ability: Normal Pre Coder Required: No Beliefs That Will Affect Care: None marital status: Current Living Situation: Spouse current occupational status: retired Feels Safe at Home: Yes Childhood Exposure to Second-Hand Smoke: No Diet: regular caffeine: Yes during the past year weight has: remained stable Dental Care, Regularly: No Physical Activity Frequency: Daily Seatbelt Use: never Assistive Devices: None Review of Systems 2 Review of Systems: Constitutionalno fever or chills ENTno blurred vision, no double vision, no epistaxis, no sore throat Respiratoryno cough, no wheezing, no shortness of breath Cardiacno palpitations, no chest pain, no syncope Toni nausea, vomiting, diarrhea, melena, hematochezia GUno urinary retention, no urinary incontinence, no dysuria, no hematuria Musculoskeletalno joint pain, no muscle tenderness. Chronic bilateral lower extremity venous stasis changes and chronic lower extremity edema Skinno bruising, no rashes, no pruritus Neurogeneralized weakness. No focal deficits Psychno depression, no anxiety Physical Exam 2 Physical Exam: General-alert and oriented x3, no fever, no chills HEENT-head atraumatic and normocephalic, pupils equal and reactive to light, extraocular muscles intact Neck-no lymphadenopathy or thyromegaly, trachea midline Chest-diminished breath sounds bilaterally. Faint bibasilar inspiratory rales. No wheezing Cardiac-rapid rate, irregular rhythm consistent with atrial fibrillation. Normal S1 and S2 Abdomen-normal bowel sounds, no hepatosplenomegaly Extremities-chronic stasis dermatitis bilateral lower extremities below the knees with 1-2+ pitting edema Neuro-cranial nerves II through XII intact, motor and sensory function within normal limits, strength symmetrical, no focal deficits Psych-normal affect, normal mood Results & Data Results & Data Vital Signs (Past 12 Hours) Vital Signs Temp Pulse Pulse Resp BP BP Pulse Ox 05/09/24 13:43 118 H 16 106/83 93 05/09/24 12:17 05/09/24 12:15 110 H 20 93 05/09/24 12:15 116 H 20 93 05/09/24 12:07 116 H 05/09/24 11:45 36.9 C 113 H 20 87/67 L 93 O2 Del Method 05/09/24 13:43 Room Air 05/09/24 12:17 Room Air 05/09/24 12:15 Room Air 05/09/24 12:15 Room Air 05/09/24 12:07 05/09/24 11:45 Room Air Laboratory Results 05/09/24 12:00 05/09/24 12:00 Code Status & VTE Plan Code Status Full code PG Care Time/CCT Total # of Minutes Spent Total Time Spent with Patient: Total time spent is greater than 50% in coordination of care (as documented) at patient's floor/unit and/or counseling patient: Coding Level of Care Code 33582 INT INP/OBS CARE 3/75MIN Diagnoses Atrial fibrillation with rapid ventricular response I48.91 Weakness R53.1 Chronic systolic CHF (congestive heart failure) I50.22 Type 2 diabetes mellitus E11.9
[2024-05-09] MEDS: DIGOXIN 500 MCG in SYRINGE 8 ML IV STA (15:07)
--- NOTE | 2024-05-09 15:23 | Electrocardiogram Report ---
Test Reason : Blood Pressure : */* mmHG Vent. Rate : 126 BPM Atrial Rate : * BPM P-R Int : * ms QRS Dur : 102 ms QT Int : 328 ms P-R-T Axes : * -54 123 degrees QTcB Int : 475 ms Atrial fibrillation with rapid ventricular response with premature ventricular or aberrantly conducte d complexes Left axis deviation Minimal voltage criteria for LVH, may be normal variant ( David product ) Anterolateral infarct (cited on or before 18-Feb-2016) Abnormal ECG When compared with ECG of 26-Apr-2024 14:27, Previous ECG has undetermined rhythm, needs review Confirmed by Mackenzie Mendoza (Brian) on 05/09/2024 3:23:43 PM Referred By: Confirmed By: Mackenzie Mendoza
[2024-05-09] MEDS ORDERED: ACETAMINOPHEN 325 MG TAB PO PRN (18:54)
[2024-05-09] MEDS ORDERED: ONDANSETRON INJ 2 MG/ML 2 ML VIAL IV PRN (18:54)
[2024-05-09] MEDS ORDERED: GLUCAGON FOR INJ 1 MG VIAL SQ PRN (20:00)
[2024-05-09] MEDS ORDERED: GLUCOSE 10 TAB/TUBE PO PRN (20:00)
[2024-05-09] MEDS ORDERED: DEXTROSE 50% 50 ML SYRINGE IV PRN (20:00)
[2024-05-09] MEDS ORDERED: GLUCOSE 40% GEL 15 GM TUBE PO PRN (20:00)
[2024-05-09] MEDS: INSULIN ASPART PER UNIT CHARGE SC SCH (20:17)
[2024-05-09] MEDS: APIXABAN 5 MG TABLET PO SCH (21:48)
[2024-05-09] MEDS: ATORVASTATIN 40 MG TAB PO SCH (21:49)
[2024-05-09] MEDS: ASPIRIN 81 MG ECTAB PO SCH (21:49)
[2024-05-09] MEDS: LOSARTAN POTASSIUM 25 MG TAB PO SCH (21:50)
[2024-05-09] MEDS: GABAPENTIN 300 MG CAP PO SCH (21:50)
[2024-05-09] MEDS: METOPROLOL SUCC 50MG EXT REL TAB PO SCH (21:51)
[2024-05-09] MEDS: INSULIN HUMAN NPH SC SCH (22:09)
[2024-05-10 07:36] LABS: BUN Creatinine Ratio 15.4 (10-20); Calcium 8.8 mg/dl (8.6-10.3); Creatinine Clr Calc Pharmacy 73.9 ml/min
[2024-05-10] MEDS: CARBOHYDRATES FOR HYPOGLYCEMIA PO PRN (07:37)
[2024-05-10] MEDS: INSULIN HUMAN NPH SC SCH (08:56)
[2024-05-10] MEDS: FUROSEMIDE 40 MG TAB PO SCH (08:59)
[2024-05-10] MEDS: PANTOprazole 40 MG TAB PO SCH (08:59)
[2024-05-10] MEDS: FLUoxetine HCL 20 MG CAP PO SCH (09:00)
[2024-05-10] MEDS ORDERED: INSULIN HUMAN NPH SC SCH (09:00)
[2024-05-10] MEDS: DIGOXIN 0.25 MG TAB PO SCH (17:12)
--- NOTE | 2024-05-10 18:56 | Hospitalist Progress Note ---
Date of Service May 10, 2024 Assessment & Plan (1) Atrial fibrillation with rapid ventricular response: Plan: Subtherapeutic digoxin levels. 1 dose of intravenous digoxin administered in the ED. increased oral dose starting , May 10. Serial digoxin levels. Telemetry (2) Weakness: Plan: Should improve with control of atrial fibrillation. (3) Chronic systolic CHF (congestive heart failure): Plan: Known ejection fraction of 25%. Admission chest x-ray today looks better than the chest x-ray when he was recently discharged. He is now taking Lasix 40 mg daily which continues. Monitor intake and output (4) Type 2 diabetes mellitus: Plan: ADA diet. Basal insulin therapy. Sliding scale coverage Plan Hopeful discharge back to home on a higher dose of oral digoxin within the next day or 2 Admission and Anticipated Discharge Date Admission Date: May 09, 2024 Subjective no new complaints, palpitations feel better, hypoglycemic episodes symptomatic Physical Exam Physical Exam: General-alert and oriented x3, no fever, no chills HEENT-head atraumatic and normocephalic, pupils equal and reactive to light, extraocular muscles intact Neck-no lymphadenopathy or thyromegaly, trachea midline Chest-diminished breath sounds bilaterally. Faint bibasilar inspiratory rales. No wheezing Cardiac-rapid rate, irregular rhythm consistent with atrial fibrillation. Normal S1 and S2 Abdomen-normal bowel sounds, no hepatosplenomegaly Extremities-chronic stasis dermatitis bilateral lower extremities below the knees with 1-2+ pitting edema Neuro-cranial nerves II through XII intact, motor and sensory function within normal limits, strength symmetrical, no focal deficits Psych-normal affect, normal mood Results & Data Results & Data Vital Signs (Past 12 Hours) Vital Signs Temp Pulse Pulse Resp BP Pulse Ox O2 Del Method 05/10/24 17:12 97 H 05/10/24 17:11 97 H 05/10/24 15:41 36.8 C 110 H 18 128/83 94 Room Air 05/10/24 13:00 101 H 05/10/24 11:40 36.6 C 86 18 115/71 93 Room Air 05/10/24 08:06 36.8 C 111 H 18 113/70 92 Room Air 05/10/24 07:45 Room Air Laboratory Results reviewed PG Care Time/CCT Total # of Minutes Spent Total Time Spent with Patient: Total time spent is greater than 50% in coordination of care (as documented) at patient's floor/unit and/or counseling patient: Coding Level of Care Code 86076 SUB INP/OBS CARE 235MIN Diagnoses Atrial fibrillation with rapid ventricular response I48.91 Weakness R53.1 Chronic systolic CHF (congestive heart failure) I50.22 Type 2 diabetes mellitus E11.9
[2024-05-11 07:25] LABS: BUN Creatinine Ratio 19.3 (10-20); Calcium 8.6 mg/dl (8.6-10.3); Creatinine Clr Calc Pharmacy 74.7 ml/min; Magnesium 1.8 mg/dl (1.7-2.4); Potassium 4.2 mmol/L (3.5-5.1)
[2024-05-11] MEDS: MAGNESIUM SULFATE / D5W 1 GM/100 ML BAG IV SCH (08:47)
--- NOTE | 2024-05-11 09:27 | Cardiology Consultation ---
Date of Consultation May 11, 2024 Assessment & Plan (1) Atrial fibrillation with rapid ventricular response: (2) Chronic systolic CHF (congestive heart failure): (3) Bicuspid aortic valve: (4) H/O Ross procedure: Plan Assessment: 73 year old male presents for complaints of palpitations after recent acute hospitalization for new onset Atrial fibrillation with RVR in the setting of an acute COVID infection. Plan: 1. Atrial fibrillation with RVR -unknown onset, although recent event likely precipitated by acute COVID infection. -Serum Digoxin levels subtherapeutic upon admission. Patient has responded to one time dose of IV digoxin as well as increase in daily oral regimen. Continue to trend serum Digoxin levels. -Continue Toprol xl at current dose 150mg PO BID -Most recent echo shows severely reduced LVEF; question if this is tachycardia mediated. Last known echo dated 11/25/23 in [facility] shows LVEF of 50%. -Avoid diltiazem in the setting of severe systolic dysfunction -Patient did not tolerate Amiodarone during prior hospitalization with QTc prolongation. Current Qtc 475ms. -Will discuss plan with Dr. Oliveira, if rates remain difficult to control with medication, may discuss if FELI with DCCV is appropriate. Remains wheezy from acute infectious process, and this needs to be addressed first per primary team. 2. Chronic systolic Heart failure -Denies shortness of breath, but physical exam does demonstrates +1 BLE pitting edema. -Chest xray continues to demonstrates small Right pleural effusion, although improved when compared with Chest xray on 05/05/24. -Give furosemide 40mg IV today x1 dose and reassess fluid status in the AM. Aware that patient received 40mg PO this AM. Monitor I&O, renal function and electrolytes closely -Continue Toprol xl as part of HF regimen 3. Bicuspid aortic valve 4. History of Ross procedure in 1997 for severe aortic insufficiency. -Continue medication regimen as outlined above -Will plan for repeat echocardiogram as part of OP follow up once rates are controlled to reassess LVEF. Case has been discussed with Dr. Oliveira. Further recommendations regarding plan of care as per his assessment. I spent a total of 40 minutes on the date of service in preparation, delivery, documentation of the care provided to the patient excluding any time spent in the performance of separately billed services. [facility] Cardiology [facility] Supervising Physician Co-Signing Physician Notes Attending attestation: Case reviewed with the advanced practitioner. I have personally performed a history and physical examination on the patient. I have reviewed the advanced practitioner's documentation on the date of service referenced in note, and I agree with, and take responsibility for the plan of care. Subjective:Patient notes generalized weakness and dizziness prompting readmission as well as concerns of epistaxis. Epistaxis resolved. Remains in atrial fibrillation with mildly elevated ventricular response. Exam: Cardiovascular irregular rhythm, no murmurs, 1+ bilateral lower extremity edema Pulmonary: Coarse expiratory breath sounds Data: EKG performed 05/09/2024 at 11:52 AM and interpreted independently reveals atrial fibrillation 126 bpm with occasional PVCs, age-indeterminate anterolateral infarct pattern chronic since 2016 Impression/ Plan: Atrial fibrillation with rapid ventricular rate Acute on chronic heart failure with reduced ejection fraction, underlying coronary heart disease had to be excluded Recent viral respiratory illness, COVID-19 --Recommend ongoing cautious diuresis. Anticipate rates may improve as he continues to improve from his recent viral illness and with ongoing gentle diuretic therapy. His heart rate response may be in part be compensatory given his reduced ejection fraction. Would continue with the current dose of metoprolol succinate 150 mg twice daily. Agree with having increase digoxin dose to 0.25 mg daily. Continue Eliquis 5 mg twice daily. Future considerations could include direct-current cardioversion after he has been on 4 weeks of uninterrupted anticoagulation or FELI cardioversion sooner than that, but at present, not certain he would tolerate the sedation for a FELI well given his respiratory status nor my confidence that he would stay in sinus rhythm at present. I spent a total of 20 minutes coordinating, documenting, and providing care for this patient excluding time spent in the performance of separately billed services or time spent by another provider. Shoaib Oliveira DO History of Present Illness Reason for Consultation: A-fib with RVR, poor rate control Requesting Physician: [facility] hospitalist Attending Physician: Radha Henry MD History of Present Illness HPI: Patient is a 73 year old male with PMHx as noted below that was recently admitted 04/26/24 with New onset A-fib with RVR, unknown duration. Rates were likely driven by active COVID infection and acute decompensated HF. Initially trialed on IV diltiazem in the ER, but had a hypotensive response, he was then trialed on Amiodarone; however discontinued due to prolonged QTc as well as concurrent use with azithromycin. He was discharged on 05/05/2024 on Digoxin 125mcg PO MWF, Eliquis 5mg PO BID, Losartan 12.5mg Daily, Metoprolol succinate 150mg PO BID. Patient returned to the ER on 05/09/2024 with complaints of palpitations and can "feel his heart beating in his ears". Serum Digoxin level is markedly low at 0.3. He received a one time IV dose of Digoxin of 0.5mg IV and plans to increase oral dose to 0.25mg PO Daily Upon seeing patient today, he is resting comfortably out of bed in chair. Denies any chest pain, pressure, palpitations, no dyspnea on exertion and no syncope. Unsure if his legs are swollen when asked. Review of telemetry shows A-fib rates 90-110 with occasional PVC's. rates of 120bpm overnight, very short in duration. PMHx: Congenitally bicuspid aortic valve status post Ross procedure (autograft pulmonary valve in the aortic position, homograft in pulmonary position) in 1997, for severe aortic insufficiency Ascending aortic dilatation, 4.3 cm via November 2023 CT scan Normal left dominant coronary anatomy 1997 Hypertension Dyslipidemia Type 2 diabetes mellitus, insulin requiring, with associated retinopathy and neuropathy, diabetic toe ulcer on the left History of CVA Obstructive sleep apnea, untreated GERD Hiatal hernia BPH with LUTS EKG on admission A-fib with RVR rates 126bpm Echocardiogram dates 04/27/24: Performed in the setting of A-fib with RVR LV systolic function severely reduced. LV mildly dilated LVEF 25-30% Septal motion consistent with conduction abnormality severe diffuse hypokinesis Left atrium moderately dilated s/p Ross procedure No hemodynamically significant Mild AI Moderate MR Severe TR PASP 50mmHg Dilated RVC RAP 8mmHg chest xray IMPRESSION: Small right pleural effusion. Right lower lung airspace opacity may represent atelectasis, pneumonia, and/or aspiration. *This is improved in comparison with his xray prior to discharge on 05/05. High sensitivity troponin flat trend 20.9 and 24.1 Allergies Allergy/AdvReac Type Severity Reaction Status Date / Time metformin Allergy Mild DOESNT Verified 05/09/24 15:00 REMEMBER repaglinide Allergy Mild DOESNT Verified 05/09/24 15:00 REMEMBER simvastatin Allergy Mild DOESNT Verified 05/09/24 15:00 REMEMBER Iodinated Contrast Media Allergy Unknown hives, Verified 05/09/24 15:00 sick to stomach Home Medications Medication Instructions Recorded Confirmed Type lancets (OneTouch UltraSoft #50 ea 01/06/19 05/07/24 History Lancets) pen needle, diabetic 31 gauge x #30 ea 01/06/19 05/07/24 History 5/16" (BD Ultra-Fine Short Pen Needle) blood sugar diagnostic #450 ea 05/29/21 05/07/24 Rx ergocalciferol (vitamin D2) 1,250 50,000 unit PO WEEKLY #12 caps 01/06/23 05/09/24 Rx mcg (50,000 unit) capsule atorvastatin 80 mg tablet 80 mg PO QPM 07/18/23 05/09/24 History fluoxetine 20 mg capsule 20 mg PO QAM #90 caps 01/06/24 05/09/24 Rx gabapentin 300 mg capsule 300 mg PO BID 90 days #180 caps 01/06/24 05/09/24 Rx pantoprazole 40 mg tablet,delayed 40 mg PO QAM #90 tabs 01/06/24 05/09/24 Rx release flash glucose sensor (FreeStyle #2 ea 01/07/24 05/07/24 Rx Veronika 2 Sensor kit) insulin aspart U-100 100 unit/mL See Rx Instructions subcut UD 90 01/13/24 05/09/24 Rx (3 mL) subcutaneous pen (Novolog days #120 mL FlexPen U-100 Insulin aspart) insulin glargine U-300 conc 300 70 unit (0.2333 mL) subcut BID #42 04/12/24 05/09/24 Rx unit/mL (3 mL) subcutaneous pen mL (Toujeo Max U-300 SoloStar) apixaban 5 mg tablet (Eliquis) 5 mg PO BID #60 tabs 05/03/24 05/09/24 Rx digoxin 125 mcg (0.125 mg) tablet 0.125 mg PO MoWeFr #30 tabs 05/05/24 05/09/24 Rx (Digitek) losartan 25 mg tablet 12.5 mg (1/2 x 25 mg) PO QPM #20 05/05/24 05/09/24 Rx tabs metoprolol succinate 100 mg 150 mg (1.5 x 100 mg) PO BID #90 05/05/24 05/09/24 Rx tablet,extended release 24 hr tabs aspirin 81 mg tablet,delayed 81 mg PO QPM 05/09/24 05/09/24 History release furosemide 40 mg tablet (Lasix) 40 mg PO QAM 05/09/24 05/09/24 History Patient History Medical History Vitamin D deficiency History of stroke (~1997) happened during valve surgery 1997> minimal left side weakness > doesn't follow neuro Osteoarthritis Vertigo Hearing loss left ear Ambulatory dysfunction "my legs are stiff" has a limp Allergic rhinitis Surgical History Hx of amputation (~04/2020) left toe / diabetic ulcer Hx of colonoscopy with polypectomy Hx of aortic valve replacement using Ross procedure (~1997) [facility] History of tooth extraction full dentures History of carpal tunnel release right History of appendectomy Hx of fracture of leg (~2015) right leg with repair eu to fall from ladder Hx of elbow surgery left from [facility] Hx of repair of right rotator cuff History of cardiac cath (~1997) @ [facility], no stents, has not seen Dr. Sevilla in a few years History of cholecystectomy Family History Mother Diabetes Valvular heart disease Heart disease Hypertension Brother Coronary heart disease Diabetes Father Hypertension Prostate cancer Denies family history of Ovarian cancer Breast cancer Colorectal cancer Social History Smoking Status: Former smoker Tobacco Type: Cigarettes Age Started Using Tobacco: 18; Age Quit Using Tobacco: 44; packs per day: 0.25; Cigarettes Per Day: 1/2 ppd; Second Hand Exposure: No; Do You Dip or Chew Tobacco: No; Hx Alcohol Use: No Hx Substance Use: No Preferred Language: Prydeinig Communication Ability: Effective Visual Impairment: Partially Limited Hearing Ability: Normal Director Of Dementia Operations Required: No Beliefs That Will Affect Care: None marital status: Current Living Situation: Spouse and Family current occupational status: retired Feels Safe at Home: Yes Childhood Exposure to Second-Hand Smoke: No Diet: regular caffeine: Yes during the past year weight has: remained stable Dental Care, Regularly: No Physical Activity Frequency: Daily Seatbelt Use: never Assistive Devices: None Review of Systems Review of Systems: All systems reviewed & are unremarkable except as noted in HPI & below Physical Exam Constitutional: well developed and well nourished; no acute distress and not ill appearing Neck: normal visual inspection and trachea midline Respiratory: normal respiratory effort, lungs clear to auscultation Cardiovascular: Rate/Rhythm: + tachycardic and + irregularly irregular Heart Sounds: normal S1, normal S2 and + murmur (+1/6 systolic ) Vessels: dorsalis pedis pulses present; no JVD Extremities: + edema (+1 BLE) Skin: no rashes, warm and dry Psychiatric: A+Ox3, euthymic affect Results & Data Vital Signs (Past 12 Hours) Vital Signs Temp Pulse Pulse Resp BP Pulse Ox O2 Del Method 05/11/24 07:41 36.8 C 106 H 18 108/63 93 Room Air 05/11/24 02:45 36.8 C 91 H 16 120/70 93 Room Air 05/10/24 23:03 36.4 C L 87 16 146/81 H 95 Room Air 05/10/24 22:49 80 Laboratory Results Comprehensive Metabolic Panel 05/11/24 Range/Units 05:25 Sodium 137 (136-145) mmol/L Potassium 4.2 (3.5-5.1) mmol/L Chloride 102 (98-107) mmol/L Carbon Dioxide 29 (21-32) mmol/L BUN 22 (6-23) mg/dl Creatinine 1.14 (0.6-1.4) mg/dl Glucose 86 (70-99(Fasting)) mg/dl Calcium 8.6 (8.6-10.3) mg/dl Intake and Output 05/10/24 05/11/24 05/11/24 22:59 06:59 14:59 Output Total Balance -2 / -263 Output: # Bowel Movements 2 / 3 Other: # Unmeasured Voids 1 1 Weight 109.225 kg Weight Measurement Method Standing Scale
[2024-05-11] MEDS: ALBUT/IPRATROP 3MG/0.5MG NEB 3 ML VIAL NEB SCH (13:44)
[2024-05-11] MEDS: FUROSEMIDE 40 MG/4 ML VIAL IV ONE ×2 (13:52→13:53)
[2024-05-11] MEDS: predniSONE 20 MG TAB PO SCH (13:52)
--- NOTE | 2024-05-11 17:42 | Hospitalist Progress Note ---
Date of Service May 11, 2024 Assessment & Plan (1) Atrial fibrillation with rapid ventricular response: Plan: Subtherapeutic digoxin levels. 1 dose of intravenous digoxin administered in the ED. increased oral dose starting , May 10. Serial digoxin levels at 0.7. Telemetry Appreciate cardiology input, didn't tolerate amio in the past due to QTc prolongation if rates remain uncontrolled - ablation (2) Weakness: Plan: Should improve with control of atrial fibrillation. ambulating independently (3) Chronic systolic CHF (congestive heart failure): Plan: Known ejection fraction of 25%. Admission chest x-ray today looks better than the chest x-ray when he was recently discharged. He is now taking Lasix 40 mg daily which continues. Monitor intake and output (4) Type 2 diabetes mellitus: Plan: ADA diet. NPH Q12H Regimen adjusted to prevent hypoglycemic episode Plan Abnormal CXR / Wheezing Recently treated for pneumonia / CXR likely residual findings - follow up to resolution Recommend steroids and bronchodilators Admission and Anticipated Discharge Date Admission Date: May 09, 2024 Subjective no new complaints, palpitations feel better, hypoglycemic episodes - resolved, no shortness of breath at rest but wheezing, no cough Physical Exam Physical Exam: General-alert and oriented x3, no fever, no chills HEENT-head atraumatic and normocephalic, pupils equal and reactive to light, extraocular muscles intact Neck-no lymphadenopathy or thyromegaly, trachea midline Chest-diminished breath sounds bilaterally. Faint bibasilar inspiratory rales. No wheezing Cardiac-rapid rate, irregular rhythm consistent with atrial fibrillation. Normal S1 and S2 Abdomen-normal bowel sounds, no hepatosplenomegaly Extremities-chronic stasis dermatitis bilateral lower extremities below the knees with 1-2+ pitting edema Neuro-cranial nerves II through XII intact, motor and sensory function within normal limits, strength symmetrical, no focal deficits Psych-normal affect, normal mood Results & Data Results & Data Vital Signs (Past 12 Hours) Vital Signs Temp Pulse Resp BP BP Pulse Ox O2 Del Method 05/11/24 16:04 36.9 C 97 H 18 109/67 92 Room Air 05/11/24 13:44 87 18 95 Room Air 05/11/24 11:39 36.8 C 102 H 18 109/70 93 Room Air 05/11/24 08:00 Room Air 05/11/24 07:41 36.8 C 106 H 18 108/63 93 Room Air Laboratory Results reviewed PG Care Time/CCT Total # of Minutes Spent Total Time Spent with Patient: Total time spent is greater than 50% in coordination of care (as documented) at patient's floor/unit and/or counseling patient: Coding Level of Care Code 15651 SUB INP/OBS CARE 2/35MIN Diagnoses Atrial fibrillation with rapid ventricular response I48.91 Weakness R53.1 Chronic systolic CHF (congestive heart failure) I50.22 Type 2 diabetes mellitus E11.9
[2024-05-11] MEDS: guaiFENesin 600 MG TABCR PO SCH (21:15)
[2024-05-12 07:21] LABS: BUN Creatinine Ratio 21.6 (10-20); Calcium 8.5 mg/dl (8.6-10.3); Creatinine Clr Calc Pharmacy 83.5 ml/min; Potassium 4.3 mmol/L (3.5-5.1)
[2024-05-12] MEDS: SPIRONOLACTONE 12.5 MG TAB PO SCH (10:00)
[2024-05-12] MEDS: FUROSEMIDE 40 MG/4 ML VIAL IV ONE (10:39)
--- NOTE | 2024-05-12 19:29 | Hospitalist Progress Note ---
Date of Service May 12, 2024 Assessment & Plan (1) Atrial fibrillation with rapid ventricular response: Plan: Subtherapeutic digoxin levels. 1 dose of intravenous digoxin administered in the ED. increased oral dose starting , May 10. Serial digoxin levels at 0.7. Telemetry Appreciate cardiology input, didn't tolerate amio in the past due to QTc prolongation if rates remain uncontrolled - ablation Repeat Dig level in AM, maintain optimal electrolyte levels (2) Weakness: Plan: Should improve with control of atrial fibrillation. ambulating independently (3) Chronic systolic CHF (congestive heart failure): Plan: Known ejection fraction of 25%. Admission chest x-ray today looks better than the chest x-ray when he was recently discharged. He is now taking Lasix 40 mg daily which continues. Monitor intake and output (4) Type 2 diabetes mellitus: Plan: ADA diet. NPH Q12H Regimen adjusted to prevent hypoglycemic episode Plan Abnormal CXR / Wheezing Recently treated for pneumonia / CXR likely residual findings - follow up to resolution Recommend steroids and bronchodilators Admission and Anticipated Discharge Date Admission Date: May 09, 2024 Subjective no new complaints, palpitations feel better, hypoglycemic episodes - resolved, no shortness of breath at rest but wheezing, no cough, tolerating PO, ambulating within room Physical Exam Physical Exam: General-alert and oriented x3, no fever, no chills HEENT-head atraumatic and normocephalic, pupils equal and reactive to light, extraocular muscles intact Neck-no lymphadenopathy or thyromegaly, trachea midline Chest-diminished breath sounds bilaterally. Faint bibasilar inspiratory rales. No wheezing Cardiac-rapid rate, irregular rhythm consistent with atrial fibrillation. Normal S1 and S2 Abdomen-normal bowel sounds, no hepatosplenomegaly Extremities-chronic stasis dermatitis bilateral lower extremities below the knees with 1-2+ pitting edema Neuro-cranial nerves II through XII intact, motor and sensory function within normal limits, strength symmetrical, no focal deficits Psych-normal affect, normal mood Results & Data Results & Data Vital Signs (Past 12 Hours) Vital Signs Temp Pulse Pulse Resp BP Pulse Ox O2 Del Method 05/12/24 18:03 96 H 05/12/24 16:38 36.5 C 116 H 20 124/88 93 Room Air 05/12/24 12:49 102 H 18 96 Room Air 05/12/24 11:52 36.3 C L 101 H 18 128/81 97 Room Air 05/12/24 08:00 Room Air 05/12/24 07:50 36.7 C 88 20 108/83 90 Room Air 05/12/24 07:38 108 H 18 91 Room Air PG Care Time/CCT Total # of Minutes Spent Total Time Spent with Patient: Total time spent is greater than 50% in coordination of care (as documented) at patient's floor/unit and/or counseling patient: Coding Level of Care Code 24519 SUB INP/OBS CARE 2/35MIN Diagnoses Atrial fibrillation with rapid ventricular response I48.91 Weakness R53.1 Chronic systolic CHF (congestive heart failure) I50.22 Type 2 diabetes mellitus E11.9
--- NOTE | 2024-05-13 08:57 | Cardiology Progress Note ---
Date of Service May 13, 2024 Assessment & Plan (1) Atrial fibrillation with rapid ventricular response: (2) Chronic systolic CHF (congestive heart failure): (3) Bicuspid aortic valve: (4) H/O Ross procedure: Plan Assessment: 73 year old male presents for complaints of palpitations after recent acute hospitalization for new onset Atrial fibrillation with RVR in the setting of an acute COVID infection. Plan: 1. Atrial fibrillation with RVR -unknown onset, although recent event likely precipitated by acute COVID infection. -Serum Digoxin levels subtherapeutic upon admission. Patient has responded to one time dose of IV digoxin as well as increase in daily oral regimen. Continue to trend serum Digoxin levels. -Continue Toprol xl at current dose 150mg PO BID -Most recent echo shows severely reduced LVEF; question if this is tachycardia mediated. Last known echo dated 11/25/23 in [facility] shows LVEF of 50%. -Avoid diltiazem in the setting of severe systolic dysfunction -Patient did not tolerate Amiodarone during prior hospitalization with QTc prolongation. Current Qtc 475ms. -Will discuss plan with Dr. Oliveira, if rates remain difficult to control with medication, may discuss if FELI with DCCV is appropriate. Remains wheezy from acute infectious process, and this needs to be addressed first per primary team. 2. Chronic systolic Heart failure -Denies shortness of breath, but physical exam does demonstrates +1 BLE pitting edema. -Chest xray continues to demonstrates small Right pleural effusion, although improved when compared with Chest xray on 05/05/24. -Give furosemide 40mg IV today x1 dose and reassess fluid status in the AM. Aware that patient received 40mg PO this AM. Monitor I&O, renal function and electrolytes closely -Continue Toprol xl as part of HF regimen 3. Bicuspid aortic valve 4. History of Ross procedure in 1997 for severe aortic insufficiency. -Continue medication regimen as outlined above -Will plan for repeat echocardiogram as part of OP follow up once rates are controlled to reassess LVEF. 05/13/2024: -Patient resting comfortably out of bed in chair, demonstrating some clinical improvement from a cardiac perspective. -Review of telemetry demonstrates A-fib with rates 90-100bpm which is improved since admission. Discussed with patient that at this time, this is not unreasonable and continued medication management with diuresis is important. If patient remains hemodynamically stable, may wish to consider a minimum of 4 weeks uninterrupted oral AC therapy with Eliquis and revisit the need for DCCV. -Continue Toprol xl and Digoxin as per current regimen. Closely monitor serum digoxin levels. -Continues to demonstrates moderate hypervolemia. -2.2 kg on review of I&O. -Give Furosemide 40mg IV x1 dose today. Continue with close monitoring of renal function and serum electrolytes. Strict I&O and daily weights with standing scale. -Goal serum K> 4.0 and Serum Mag > 2.0 -Will plan for repeat echocardiogram as part of OP follow up to reassess LVEF. Case has been discussed with Dr. Oliveira. Further recommendations regarding plan of care as per his assessment. I spent a total of 30 minutes on the date of service in preparation, delivery, documentation of the care provided to the patient excluding any time spent in the performance of separately billed services. JOE Edgar [facility] Admission and Anticipated Discharge Date Admission Date: May 09, 2024 Supervising Physician Co-Signing Physician Notes Attending attestation: Case reviewed with the advanced practitioner. I have personally performed a history and physical examination on the patient. I have reviewed the advanced practitioner's documentation on the date of service referenced in note, and I agree with, and take responsibility for the plan of care. Patient appears drastically improved compared to when I had seen him 2 days ago. More awake, no inspiratory wheezing, lower extremity edema better, down to minimal trace to 1+ lower extremity edema. Ongoing atrial fibrillation noted with resting ventricular rates in the 90s to low 100s which I think are acceptable and not unexpected given his severe left ventricular systolic dysfunction. -Discussed options such as going home today versus remain in the hospital with patient. -I favor he stays [address] order for repeat basic metabolic panel for tomorrow morning and will dose IV furosemide according to his renal function and electrolytes on 05/14/2024. Perhaps discharge after a.m. dose of diuretic tomorrow. Continue current dose of digoxin and metoprolol for rate control. Continue Eliquis for stroke prophylaxis. Likely discharge on furosemide 40 mg p.o. daily, spironolactone 12.5 mg daily. I spent a total of 20 minutes coordinating, documenting, and providing care for this patient excluding time spent in the performance of separately billed services or time spent by another provider. Shoaib Oliveira DO Subjective 05/13/2024: Patient seen and examined in follow up today. Feeling well. Sitting out of bed in a chair. Denies any chest pain, pressure or palpitations. Denies any changes or decline in his breathing. Continues with lower extremity edema. Labs, vitals, diagnostics, telemetry and documentation reviewed. Telemetry reviewed showing A-fib with occasional PVC's. Rate 100bpm. -370 fluid balance -2.2 kg since admission labs pending Review of Systems Review of Systems: All systems reviewed & are unremarkable except as noted in HPI & below Physical Exam Constitutional: well developed and well nourished; no acute distress and not ill appearing Neck: normal visual inspection and trachea midline Respiratory: normal respiratory effort, lungs clear to auscultation Cardiovascular: Rate/Rhythm: + tachycardic and + irregularly irregular Heart Sounds: normal S1, normal S2 and + murmur (+1/6 systolic ) Vessels: dorsalis pedis pulses present; no JVD Extremities: + edema (+1 BLE) Skin: no rashes, warm and dry Psychiatric: A+Ox3, euthymic affect Results & Data Vital Signs (Past 12 Hours) Vital Signs Temp Pulse Pulse Resp BP Pulse Ox O2 Del Method 05/13/24 08:10 Room Air 05/13/24 07:45 36.9 C 84 18 123/86 98 Room Air 05/13/24 07:23 82 20 91 Room Air 05/13/24 02:26 36.6 C 92 H 20 106/63 95 Room Air 05/12/24 23:24 118 H 18 94 Room Air 05/12/24 22:58 Room Air 05/12/24 22:35 36.6 C 93 H 18 117/76 93 Room Air 05/12/24 21:55 99 H Laboratory Results Comprehensive Metabolic Panel 05/13/24 Range/Units 09:41 Sodium 138 (136-145) mmol/L Potassium 4.2 (3.5-5.1) mmol/L Chloride 100 (98-107) mmol/L Carbon Dioxide 30 (21-32) mmol/L BUN 25 H (6-23) mg/dl Creatinine 1.07 (0.6-1.4) mg/dl Glucose 180 H (70-99(Fasting)) mg/dl Calcium 9.0 (8.6-10.3) mg/dl Intake and Output 05/12/24 05/13/24 05/13/24 22:59 06:59 14:59 Intake Total 350 / 980 150 / 980 Output Total 950 / 1350 400 / 1350 Balance -600 / -370 -250 / -370 Intake: Oral 350 / 980 150 / 980 Output: Urine 950 / 1350 400 / 1350 Other: Weight 107.002 kg Weight Measurement Method Built in [facility]
[2024-05-13 10:53] LABS: BUN Creatinine Ratio 23.4 (10-20); Creatinine Clr Calc Pharmacy 78.8 ml/min; Magnesium 2.1 mg/dl (1.7-2.4); Potassium 4.2 mmol/L (3.5-5.1)
[2024-05-13] MEDS: FUROSEMIDE 40 MG/4 ML VIAL IV ONE (11:46)
--- NOTE | 2024-05-13 17:24 | Hospitalist Progress Note ---
Date of Service May 13, 2024 Assessment & Plan (1) Atrial fibrillation with rapid ventricular response: Plan: 73-year-old male with a past medical history of HFrEF, A-fib RVR, bicuspid aortic valve who was hospitalized for A-fib RVR and acute CHF. A-fib with RVR Digoxin subtherapeutic on admissionwithin the low therapeutic range on 05/13 Continue metoprolol 150 mg p.o. twice daily Continue digoxin 0.25 mg daily Continue trending digoxin trough levels Not tolerant of amiodarone and with history of QT prolongation with this Reasonable control 05/13. If euvolemic and remained stable possible discharge 05/14 HFrEF Interval decrease in echo from 50% on 11/2019 to 30% . Cardiology following. Appreciate recommendations. Will continue diuresis, improving but still hypervolemic 05/13 Additional 40 mg IV x 1 Lasix given 05/13/2024 Lasix 40 mg p.o. anticipated on discharge Will have repeat echo and follow-up with cardiology as outpatient Wheezing No hypoxia or wheezing 05/13. Resolved. DM2 Reasonable control today, is currently on NPH 12 units twice daily with sliding scale Anticipate transitioning back to home regimen on discharge DVT prophylaxis: Continue apixaban Diet: Heart healthy, DM 2 CODE STATUS: Full code (2) Weakness: (3) Chronic systolic CHF (congestive heart failure): (4) Type 2 diabetes mellitus: Admission and Anticipated Discharge Date Admission Date: May 09, 2024 Subjective Seen at the bedside. Feels greatly improved and is hopeful to go home in the near future. Sitting up in a chair at the bedside at time of visit, no chest pain chest pressure palpitations or shortness of breath at time of visit. Denies wheezing. No questions or concerns other than when he will be progressing home. A-fib is improved although not optimal with rates in the low 100s at time of bedside visit, was seen by cardiology and this is tolerable given his dysfunction although would benefit from 1 additional day of diuresis. Patient agreeable to 1 additional day and targeting discharge tomorrow Physical Exam Physical Exam: General: A&Ox3. NAD. Cooperative. HEENT: Atraumatic, normocephalic. Vision and hearing grossly intact Pulm: Grossly clear, good air movement. No wheezing at time hospitalist assessment symmetrical chest rise. No increased work of breathing. No respiratory distress. Cardiac: IRR IRR, tachycardic rates 901 15 at time of bedside visit.. Radial pulses intact and symmetrical. Abdominal: Nontender, nondistended, soft. BS present. Extremities: 1+ bilateral lower extremity edema is Results & Data Results & Data Vital Signs (Past 12 Hours) Vital Signs Temp Pulse Pulse Resp BP Pulse Ox O2 Del Method 05/13/24 15:59 110 H 05/13/24 15:55 37 C 108 H 18 129/70 93 Room Air 05/13/24 13:26 102 H 16 95 Room Air 05/13/24 13:01 108 H 05/13/24 11:38 36.5 C 86 20 111/75 94 Room Air 05/13/24 08:10 Room Air 05/13/24 07:45 36.9 C 84 18 123/86 98 Room Air 05/13/24 07:23 82 20 91 Room Air PG Care Time/CCT Total # of Minutes Spent Total Time Spent with Patient: Total time spent is greater than 50% in coordination of care (as documented) at patient's floor/unit and/or counseling patient: Coding Level of Care Code 66833 SUB INP/OBS CARE 3/50MIN Diagnoses Atrial fibrillation with rapid ventricular response I48.91 Weakness R53.1 Chronic systolic CHF (congestive heart failure) I50.22 Type 2 diabetes mellitus E11.9
[2024-05-14 06:13] LABS: BUN Creatinine Ratio 24.8 (10-20); Calcium 8.7 mg/dl (8.6-10.3); Creatinine Clr Calc Pharmacy 77.4 ml/min; Magnesium 2.1 mg/dl (1.7-2.4); Potassium 4.1 mmol/L (3.5-5.1)
--- NOTE | 2024-05-14 07:36 | Discharge Summary ---
Discharge Summary Date of Service May 14, 2024 Principal Dx & Hospital Course #1 = Principal Diagnosis (1) Atrial fibrillation with rapid ventricular response: 73-year-old male with a past medical history of HFrEF, A-fib RVR, bicuspid aortic valve who was hospitalized for A-fib RVR and acute CHF. Patient clinically progressed with diuresis and digoxin for A-fib rate control and was discharged home to outpatient follow-up To do as outpatient: 1. Routine PCP follow-up for reassessment of volume status and Lasix requirements. Was discharged on Lasix 40 mg p.o. 2. Outpatient follow-up with cardiology, repeat echo as outpatient. Patient had an interval decrease in his EF from 50% down to 25-30%.? Rate related, minimal stable Trope elevation admission without clinical chest pain. EKG was without acute ischemic changes, stable findings consistent with anterolateral infarct, and was A-fib RVR on admission. 3. Recheck digoxin levels within 3-7 days. Levels appeared stable at new dosing of to 50 mcg daily which was continued on discharge. Expedited follow-up appointment was being facilitated by case management at discharge 4. Continue spironolactone 12.5 mg daily. Recheck creatinine/potassium on BMP by PCP in approximately 1 week 5. Patient had significant dietary contribution to his CHF and blood sugar swings. Did provide extensive counseling regarding salt limits and trying to track salt intake, will need continued reinforcement to help minimize risk of recurrent CHF exacerbations in the future. A-fib with RVR Digoxin subtherapeutic on admissionwithin the low therapeutic range on 05/13 Continue metoprolol 150 mg p.o. twice daily Continue digoxin 0.25 mg daily Continue trending digoxin trough levels Not tolerant of amiodarone and with history of QT prolongation with this HFrEF Interval decrease in echo from 50% on 11/2023 to 25 to 30%. Cardiology following. Appreciate recommendations. Will continue diuresis, improving but still hypervolemic 1. Additional 40 mg IV x 1 Lasix given 05/13/2024 Lasix 40 mg p.o. prescribed on discharge, near euvolemic and with normal sats on room air at time of discharge Will have repeat echo and follow-up with cardiology as outpatient Wheezing No hypoxia or wheezing 05/13 or 05/14. Resolved. DM2 Continued on home regimen at discharge, reasonable control during admission. Did have a hypoglycemic event with SSI nrrowed and then some hyperglyemia, this was discussed w. pt and was from food brought in outside the hospital. Good control BSG 100-104 morning of dc. (2) Weakness: (3) Chronic systolic CHF (congestive heart failure): (4) Type 2 diabetes mellitus: Admission HPI Per Admitting Provider 73-year-old male who was recently discharged after treatment for uncontrolled atrial fibrillation and systolic CHF. He is complaining of palpitations and can feel his heart beat rapidly in his ears. He is also has generalized weakness. Digoxin level is markedly low at 0.3. He was recently started on digoxin in a low dose fashion every other day. 1 dose of IV digoxin ordered and oral dosage has been increased. Current chest x-ray looks better than his x-ray at the time of discharge. The CHF is resolving. Other medications will remain the same. He denies chest pain. He is placed in observation status with telemetry for now Discharge Exam General: A&Ox3. NAD. Cooperative. HEENT: Atraumatic, normocephalic. Vision/hearing intact Pulm: CTAB A&P. -wheezes, -rales, -rhonchi. Symmetrical chest rise. No increased work of breathing. No respiratory distress. Cardiac: irir, rate 80s -mrg. Radial pulses intact and symmetrical. Abdominal: Nontender, nondistended, soft. BS present. Ext: Warm, dry. trace/1+ edema improved from prior Discharge Plan Discharge Items Patient Disposition: Home - Home Health Services Reason For Visit: AF WITH RVR Discharge Diagnosis: A-fib RVR CHF Activity: Resume your previous activity Non-emergency contact: Primary Care Provider and [facility] Cutter Call non-emergency contact if: you have any medication questions and your symptoms worsen Follow-up/Referrals: Connor Saucedo MD [Primary Care Provider] - 05/24/24 2:00 pm Diet: Carb Consistent or DM2 and Heart Healthy Addtl Attending Provider Instructions: You were seen in the hospital for Afib with rapid rate, and a CHF exacerbation. Your heart rate normalized with fluid treatment and digoxin. You felt well at time of discharge and were breathing comfortably on room air. You have been prescribed lasix 40mg daily. Please continue to take lasix 40mg daily by mouth and followup with your PCP/Mar[facility] Cutter for any additional adjustments as needed. Your digoxin dose has been changed as noted below. Please take digoxin 250mcg (0.250mg) by mouth once daily. You will need your levels checked by your PCP within 1 week. If you have nausea, vomiting, lightheadedness, dizziness please contact your pcp or epic beacon analyst immediately for recommendations as this may be due to high drug levels. You have been prescribed a blood pressure and heart medication, spironolactone. Please take spironolactone 12.5mg daily. You will need blood work checked within 1 week to ensure your creatinine and potassium are stable. Your heart is very sensitive to salt, which will cause fluid overload. Please keep track of the amount of sodium in all food/drinks you consume daily. The TOTAL amount of sodium (salt) per 24 hours should not exceed 1500-2000mg total. If you develop any new or worsening symptoms including fever, chills, sweats, chest pain, chest pressure, difficulty breathing, uncontrolled nausea/vomiting, rash, wheezing, passing out or nearly passing out, bleeding, black/bloody bowel movements, or other new or concerning symptoms please call your primary care physician, or call 911 for re-evaluation in the emergency department if you are very concerned. Pending Studies at Discharge: No Stand-Alone Forms: [facility] Datical, Smoking Cessation Medications and DC Order Prescriptions: New digoxin 250 mcg (0.25 mg) Tablet 0.25 mg PO DAILY@1600 30 Days Qty: 30 0RF spironolactone 25 mg Tablet 12.5 mg PO DAILY 30 Days Qty: 15 0RF Continued (DME) blood sugar diagnostic Strip See Dose Instructions .ROUTE .MEDSUPPLY Qty: 450 3RF Rx Instructions: Test blood sugars five times daily or as directed ergocalciferol (vitamin D2) 1,250 mcg (50,000 unit) capsule 50,000 unit PO WEEKLY Qty: 12 3RF Rx Instructions: saturdays atorvastatin 80 mg tablet 80 mg PO QPM gabapentin 300 mg capsule 300 mg PO BID 90 Days Qty: 180 3RF fluoxetine 20 mg capsule 20 mg PO QAM Qty: 90 3RF pantoprazole 40 mg tablet,delayed release (DR/EC) 40 mg PO QAM Qty: 90 3RF (DME) FreeStyle Veronika 2 Sensor Kit See Rx Instructions .Route Qty: 2 5RF Rx Instructions: Change every 14 days insulin aspart U-100 [Novolog FlexPen U-100 Insulin] 100 unit/mL (3 mL) insulin pen See Rx Instructions SQ UD MDD 120 units 90 Days Qty: 120 0RF Rx Instructions: max of 40 units with meals; reduce to 20 units if smaller meals; HOLD if blood sugar is low; TDD 120 units Toujeo Max U-300 SoloStar 300 unit/mL (3 mL) insulin pen 70 unit subcut BID Qty: 42 3RF (DME) pen needle, diabetic [BD Ultra-Fine Short Pen Needle] 31 gauge x 5/16" needle See Dose Instructions .ROUTE .MEDSUPPLY Qty: 30 Rx Instructions: Use to inject insulin four times a day (DME) lancets [OneTouch UltraSoft Lancets] [facility] See Dose Instructions .ROUTE .MEDSUPPLY Qty: 50 Rx Instructions: test blood glucose four times a day Eliquis 5 mg Tablet 5 mg PO BID Qty: 60 5RF losartan 25 mg Tablet 12.5 mg PO QPM Qty: 20 0RF metoprolol succinate 100 mg tablet extended release 24 hr 150 mg PO BID Qty: 90 0RF aspirin 81 mg Tablet,Delayed Release (Dr/Ec) 81 mg PO QPM furosemide [Lasix] 40 mg tablet 40 mg PO QAM Discontinued digoxin [Digitek] 125 mcg (0.125 mg) Tablet 0.125 mg PO MoWeFr Qty: 30 0RF Discharge Orders: Discharge Order (Routine); Ordered 05/14/24 Ordered By: Romero Rodriguez Admission Data Admit Date/Time: 05/09/24 16:39 Attending Provider: Romero Rodriguez Admit Provider: Enmanuel Temple Primary Care Provider: Connor Saucedo Other Providers: [facility] Fax; Margarito Werner Hospital Stay Data Consultations 05/09/24 13:29 ED Decision to Admit Stat 05/11/24 08:19 Consult Cardiology Routine Discharge Instructions Given to Patient (Per Discharging Provider) You were seen in the hospital for Afib with rapid rate, and a CHF exacerbation. Your heart rate normalized with fluid treatment and digoxin. You felt well at time of discharge and were breathing comfortably on room air. You have been prescribed lasix 40mg daily. Please continue to take lasix 40mg daily by mouth and followup with your PCP/Mar[facility] Cutter for any additional adjustments as needed. Your digoxin dose has been changed as noted below. Please take digoxin 250mcg (0.250mg) by mouth once daily. You will need your levels checked by your PCP within 1 week. If you have nausea, vomiting, lightheadedness, dizziness please contact your pcp or epic beacon analyst immediately for recommendations as this may be due to high drug levels. You have been prescribed a blood pressure and heart medication, spironolactone. Please take spironolactone 12.5mg daily. You will need blood work checked within 1 week to ensure your creatinine and potassium are stable. Your heart is very sensitive to salt, which will cause fluid overload. Please keep track of the amount of sodium in all food/drinks you consume daily. The TOTAL amount of sodium (salt) per 24 hours should not exceed 1500-2000mg total. If you develop any new or worsening symptoms including fever, chills, sweats, chest pain, chest pressure, difficulty breathing, uncontrolled nausea/vomiting, rash, wheezing, passing out or nearly passing out, bleeding, black/bloody bowel movements, or other new or concerning symptoms please call your primary care physician, or call 911 for re-evaluation in the emergency department if you are very concerned. Total Time Total Time Spent Total Time Spent (In Minutes): Time spend day of discharge 35 minutes including direct patient care, documentation, review of labs and images, and coordination of care. Coding Level of Care Code 23104 INP/OBS DISCH >30 MIN Diagnoses Atrial fibrillation with rapid ventricular response I48.91 Weakness R53.1 Chronic systolic CHF (congestive heart failure) I50.22 Type 2 diabetes mellitus E11.9
--- NOTE | 2024-05-14 08:18 | Cardiology Progress Note ---
Date of Service May 14, 2024 Assessment & Plan (1) Atrial fibrillation with rapid ventricular response: (2) Chronic systolic CHF (congestive heart failure): (3) Bicuspid aortic valve: (4) H/O Ross procedure: Plan Assessment: 73 year old male presents for complaints of palpitations after recent acute hospitalization for new onset Atrial fibrillation with RVR in the setting of an acute COVID infection. Plan: 1. Atrial fibrillation with RVR -unknown onset, although recent event likely precipitated by acute COVID infection. -Serum Digoxin levels subtherapeutic upon admission. Patient has responded to one time dose of IV digoxin as well as increase in daily oral regimen. Continue to trend serum Digoxin levels. -Continue Toprol xl at current dose 150mg PO BID -Most recent echo shows severely reduced LVEF; question if this is tachycardia mediated. Last known echo dated 11/25/23 in [facility] shows LVEF of 50%. -Avoid diltiazem in the setting of severe systolic dysfunction -Patient did not tolerate Amiodarone during prior hospitalization with QTc prolongation. Current Qtc 475ms. -Will discuss plan with Dr. Oliveira, if rates remain difficult to control with medication, may discuss if FELI with DCCV is appropriate. Remains wheezy from acute infectious process, and this needs to be addressed first per primary team. 2. Chronic systolic Heart failure -Denies shortness of breath, but physical exam does demonstrates +1 BLE pitting edema. -Chest xray continues to demonstrates small Right pleural effusion, although improved when compared with Chest xray on 05/05/24. -Give furosemide 40mg IV today x1 dose and reassess fluid status in the AM. Aware that patient received 40mg PO this AM. Monitor I&O, renal function and electrolytes closely -Continue Toprol xl as part of HF regimen 3. Bicuspid aortic valve 4. History of Ross procedure in 1997 for severe aortic insufficiency. -Continue medication regimen as outlined above -Will plan for repeat echocardiogram as part of OP follow up once rates are controlled to reassess LVEF. 05/13/2024: -Patient resting comfortably out of bed in chair, demonstrating some clinical improvement from a cardiac perspective. -Review of telemetry demonstrates A-fib with rates 90-100bpm which is improved since admission. Discussed with patient that at this time, this is not unreasonable and continued medication management with diuresis is important. If patient remains hemodynamically stable, may wish to consider a minimum of 4 weeks uninterrupted oral AC therapy with Eliquis and revisit the need for DCCV. -Continue Toprol xl and Digoxin as per current regimen. Closely monitor serum digoxin levels. -Continues to demonstrates moderate hypervolemia. -2.2 kg on review of I&O. -Give Furosemide 40mg IV x1 dose today. Continue with close monitoring of renal function and serum electrolytes. Strict I&O and daily weights with standing scale. -Goal serum K> 4.0 and Serum Mag > 2.0 -Will plan for repeat echocardiogram as part of OP follow up to reassess LVEF. 05/14/2024: -Patient is doing well from a cardiac perspective. He has had significant sucess with diuresis. Will give an Additional dose of IV lasix 40mg x1 dose this morning. Patient may be transitioned back to furosemide 40mg by mouth Daily starting tomorrow. -Concerns with dietary compliance. Reinforced CHF teaching education to patient with maintaining a low sodium diet, less than 2000mg of Na daily. Encouraged daily weights and to report a 3-5lb overnight weight gain to the office. -Labs reviewed and are stable. -Will discuss case with Dr. Oliveira for consideration for discharge to home today. Office to call you OP follow up appt. Patient will need OP labs in one week (non-fasting). Orders already placed in [facility] system. -Patient is to resume Furosemide 40mg PO QAM tomorrow. -Continue ASA 81mg, Atorvastatin 80mg, Toprol xl 150mg BID, Eliquis 5mg BID, digoxin 0.25mg daily, and spironolactone 12.5mg Daily. -Repeat echo will be arrange as part of OP follow up to reasses LVEF. Case has been discussed with Dr. Oliveira. Further recommendations regarding plan of care as per his assessment. I spent a total of 30 minutes on the date of service in preparation, delivery, documentation of the care provided to the patient excluding any time spent in the performance of separately billed services. JOE Edgar [facility] Cardiology [facility] Admission and Anticipated Discharge Date Admission Date: May 09, 2024 Supervising Physician Co-Signing Physician Notes Attending attestation: Case reviewed with the advanced practitioner. I have personally performed a history and physical examination on the patient. I have reviewed the advanced practitioner's documentation on the date of service referenced in note, and I agree with, and take responsibility for the plan of care. I spent a total of 20 minutes coordinating, documenting, and providing care for this patient excluding time spent in the performance of separately billed services or time spent by another provider. Shoaib Oliveira DO Subjective 05/14/2024: Patient seen and examined in follow up today. Feeling well from a cardiac perspective. offers no complaints or concerns. He does admit that he "got busted eating potato chips yesterday". Labs, vitals, diagnostics, telemetry and documentation reviewed. Telemetry reviewed showing A-fib rates 90-100, but as low as 70bpm with sleep. single 4beat run of VT at 0128. -8kg weight deficit. -710 fluid balance. Review of Systems Review of Systems: All systems reviewed & are unremarkable except as noted in HPI & below Physical Exam Constitutional: well developed and well nourished; no acute distress and not ill appearing Neck: normal visual inspection and trachea midline Respiratory: normal respiratory effort, lungs clear to auscultation Cardiovascular: Rate/Rhythm: + tachycardic and + irregularly irregular Heart Sounds: normal S1, normal S2 and + murmur (+1/6 systolic ) Vessels: dorsalis pedis pulses present; no JVD Extremities: + edema (trace to +1 BLE) Skin: no rashes, warm and dry Psychiatric: A+Ox3, euthymic affect Results & Data Vital Signs (Past 12 Hours) Vital Signs Temp Pulse Pulse Resp BP BP Pulse Ox 05/14/24 08:02 88 18 95 05/14/24 07:41 36.7 C 98 H 20 128/66 93 05/14/24 07:35 05/14/24 03:26 36.5 C 88 18 119/65 91 05/14/24 01:07 74 17 97 05/13/24 21:56 36.8 C 108 H 16 131/93 95 05/13/24 21:54 110 H O2 Del Method 05/14/24 08:02 Room Air 05/14/24 07:41 Room Air 05/14/24 07:35 Room Air 05/14/24 03:26 Room Air 05/14/24 01:07 Room Air 05/13/24 21:56 Room Air 05/13/24 21:54 Laboratory Results Comprehensive Metabolic Panel 05/13/24 05/14/24 Range/Units 09:41 05:30 Sodium 138 139 (136-145) mmol/L Potassium 4.2 4.1 (3.5-5.1) mmol/L Chloride 100 103 (98-107) mmol/L Carbon Dioxide 30 30 (21-32) mmol/L BUN 25 H 27 H (6-23) mg/dl Creatinine 1.07 1.09 (0.6-1.4) mg/dl Glucose 180 H 104 H (70-99(Fasting)) mg/dl Calcium 9.0 8.7 (8.6-10.3) mg/dl Intake and Output 05/13/24 05/14/24 05/14/24 22:59 06:59 14:59 Intake Total 240 / 890 100 / 890 Output Total 550 / 1600 Balance -310 / -710 100 / -710 Intake: Oral 240 / 890 100 / 890 Output: Urine 550 / 1600 Other: Weight 104.7 kg
[2024-05-14] MEDS: FUROSEMIDE 40 MG/4 ML VIAL IV ONE (09:25)
[2024-05-14 12:01] VITALS: BP 118/79; PULSE 92; RESP 20; TEMP 98.4; O2SAT 93
== END 2024-05-14 12:38 | disposition home health service (06) | DRG 309 ==
LOC: SUATTDRO → ED 11:39 → 2N 16:39 → SUATTDRO 16:39 → EDINP 16:39 → 2N 23:41

== ENCOUNTER 2024-10-21 10:51 | Inpatient (IN) ==
[2024-10-21] MEDS: ADENOSINE IV SOLN 3 MG/ML 2 ML VIAL IV ONE ×2 (10:58→11:05)
[2024-10-21] MEDS: AMIODARONE 150MG / 100ML D5W IV ONE (11:01)
[2024-10-21] MEDS: MIDAZOLAM HCL 5 MG/ML 2ML VIAL ONE (11:07)
--- NOTE | 2024-10-21 11:37 | XRay Report ---
XR chest 1V portable CLINICAL HISTORY: Chest pain, nonspecific COMPARISON STUDY: 08/25/2024 FINDINGS: Stable CABG. Stable moderate cardiomegaly with mild pulmonary vascular congestion. No effus ion, consolidation, or pneumothorax. IMPRESSION: Mild CHF. ACT 112: Negative or not required by law. Electronically signed by: Alvarez Hummel M.D. 10/21/2024 11:36 AM
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
[2024-10-21 11:54] LABS: Basophils # (auto) 0.07 K/uL (0.00-0.20); Basophils % (auto) 0.6 %; Eosinophils # (auto) 0.06 K/uL (0.00-0.50); Eosinophils % (auto) 0.5 %; Hematocrit (blood only) 46.2 % (42.0-52.0); Hemoglobin 14.8 g/dl (14.0-18.0); Immature Granulocytes # (auto) 0.06 K/uL (0.01-0.20); Immature Granulocytes % (auto) 0.5 %; Lymphocytes # (auto) 2.54 K/uL (1.20-3.40); Lymphocytes % (auto) 22.9 %; Mean Corpuscular Hemoglobin 27.6 pg (25.0-34.0); Mean Platelet Volume 11.3 fL (9.4-12.4); Monocytes # (auto) 0.67 K/uL (0.11-0.59); Neutrophils % (auto) 69.5 %; Platelet Count 273 K/uL (130-400); RDW Coefficient of Variation 15.5 % (11.5-14.5); RDW Standard Deviation 48.3 fL (36.4-46.3); Red Blood Count 5.37 M/uL (4.70-6.10)
[2024-10-21] MEDS ORDERED: 0.2 MICRON FILTER SET 1 EACH IV ONE ×2 (12:13→17:58)
[2024-10-21 12:15] LABS: Alanine Aminotransferase 33 U/L (7-52); Albumin Globulin Ratio 1.4 (0.9-2); Alkaline Phosphatase 117 U/L (34-104); Anion Gap 15 (3-11); Aspartate Aminotransferase 72 U/L (13-39); BUN Creatinine Ratio 11.3 (10-20); Bilirubin,Total 1.8 mg/dl (0.2-1.0); Blood Urea Nitrogen 12 mg/dl (6-23); Calcium 9.5 mg/dl (8.6-10.3); Carbon Dioxide 20 mmol/L (21-32); Chloride 102 mmol/L (98-107); Globulin 3.1 gm/dl (2.5-4.0); Glucose 317 mg/dl (70-99(Fasting)); Lipase 14 U/L (11-82); Potassium 4.1 mmol/L (3.5-5.1); Sodium 137 mmol/L (136-145); Total Protein 7.3 gm/dl (6.0-8.3)
[2024-10-21 12:17] LABS: Troponin I High Sensitivity 7.9 pg/ml (0-20)
[2024-10-21] MEDS: AMIODARONE / D5W 360 MG/200 ML BAG IV ONE (12:34)
--- NOTE | 2024-10-21 12:44 | History & Physical Report ---
Date of Service October 21, 2024 Assessment & Plan (1) SVT (supraventricular tachycardia): (2) Type 2 diabetes mellitus: (3) Chronic systolic CHF (congestive heart failure): (4) Obesity: (5) Hypertension: (6) Depression: Plan #SVT/ wide complex tachycardia/ s/p Ross Procedure/ persistanr atrial fibrillation Patient not taking Dig. Will place on amiodarone and metoprolol. stop dig and fluoxetine. #Chronic systolic CHF (congestive heart failure): Known ejection fraction of 25%. Patient will need to have a defibrillator.. Monitor intake and output #Type 2 diabetes mellitus: ADA diet. Basal insulin therapy. Sliding scale coverage Plan Hopeful discharge back to home on a regimen in which the patient remains compliant. History of Present Illness Chief Complaint: A fib RVR Primary Care Provider: Connor Saucedo MD 74-year-old male with PMH of atrial fibirillation with 2 admissions on 05/04 for uncontrolled atrial fibrillation and systolic CHF. Patient went to get imaging for his lower back when he noticed palpitations and SOB. He is also has generalized weakness. Patient reports being noncompliant with his digoxin. In the ED, patient found to be in Wide complex tachycardia. Patient was placed on IV amiodarone. Other medications will remain the same. Will obtain a Dig level. Will hold Dig as placed on amiodarone He denies chest pain. Patient states he does not take dig because he cannot afford it. Allergies Allergy/AdvReac Type Severity Reaction Status Date / Time metformin Allergy Mild DOESNT Verified 10/21/24 12:44 REMEMBER repaglinide Allergy Mild DOESNT Verified 10/21/24 12:44 REMEMBER simvastatin Allergy Mild DOESNT Verified 10/21/24 12:44 REMEMBER Iodinated Contrast Media Allergy Unknown hives, Verified 10/21/24 12:44 sick to stomach Home Medications Medication Instructions Recorded Confirmed Type lancets (OneTouch UltraSoft #50 ea 01/06/19 09/28/24 History Lancets) pen needle, diabetic 31 gauge x #30 ea 01/06/19 09/28/24 History 5/16" (BD Ultra-Fine Short Pen Needle) blood sugar diagnostic #450 ea 05/29/21 09/28/24 Rx ergocalciferol (vitamin D2) 1,250 50,000 unit PO WEEKLY #12 caps 01/06/23 09/28/24 Rx mcg (50,000 unit) capsule gabapentin 300 mg capsule 300 mg PO BID 90 days #180 caps 01/06/24 09/28/24 Rx pantoprazole 40 mg tablet,delayed 40 mg PO QAM #90 tabs 01/06/24 09/28/24 Rx release insulin aspart U-100 100 unit/mL See Rx Instructions subcut UD 90 01/13/24 09/28/24 Rx (3 mL) subcutaneous pen (Novo days #120 mL FlexPen U-100 Insulin aspart) apixaban 5 mg tablet (Eliquis) 5 mg PO BID #60 tabs 05/03/24 09/28/24 Rx losartan 25 mg tablet 12.5 mg (1/2 x 25 mg) PO QPM #20 05/05/24 09/28/24 Rx tabs aspirin 81 mg tablet,delayed 81 mg PO QPM 05/09/24 09/28/24 History release furosemide 40 mg tablet (Lasix) 20 mg PO QAM 05/09/24 09/28/24 History metoprolol succinate 100 mg 100 mg PO BID #60 tabs 07/16/24 09/28/24 Rx tablet,extended release 24 hr digoxin 125 mcg (0.125 mg) tablet 125 mcg PO 3XWK 08/03/24 09/28/24 History digoxin 250 mcg (0.25 mg) tablet 250 mcg PO 4XWK 08/03/24 09/28/24 History empagliflozin 10 mg tablet 10 mg PO DAILY 08/03/24 09/28/24 History (Jardiance) magnesium oxide 400 mg PO DAILY 08/03/24 09/28/24 History rosuvastatin 10 mg tablet 10 mg PO DAILY 08/03/24 09/28/24 History sacubitril 24 mg-valsartan 26 mg 1 tab PO BID 08/03/24 09/28/24 History tablet (Entresto) spironolactone 25 mg tablet 12.5 mg PO DAILY 08/03/24 09/28/24 History fluoxetine 40 mg capsule 40 mg PO DAILY #90 caps 09/15/24 09/28/24 Rx flash glucose sensor (FreeStyle #2 ea 09/28/24 09/28/24 Rx Veronika 2 Sensor kit) semaglutide 0.25 mg or 0.5 mg (2 0.5 mg subcut WK 09/28/24 09/28/24 History mg/3 mL) subcutaneous pen injector (Ozempic) insulin glargine U-300 conc 300 60 - 65 unit subcut BID 10/21/24 History unit/mL (3 mL) subcutaneous pen (Toujeo Max U-300 SoloStar) Past Med/Surg History Problem List Persistent atrial fibrillation Cardiomyopathy Status post Ross procedure Wide-complex tachycardia Hyperglycemia (Acute) SVT (supraventricular tachycardia) (Acute) Type 2 diabetes mellitus Chronic systolic CHF (congestive heart failure) Pulmonary vascular congestion (Acute) Aspiration into airway Apnea, sleep Ascending aorta dilatation Bicuspid aortic valve Hypoxia COVID-19 Acute CHF New onset a-fib Diabetic ulcer of toe of right foot (Acute) Acquired hammer toe (Chronic) Diabetic ulcer of toe of left foot (Acute) Traumatic open wound of right lower leg (Acute) Traumatic open wound of left lower leg (Acute) Diabetic peripheral neuropathy associated with type 2 diabetes mellitus Non-proliferative diabetic retinopathy, both eyes Pre-ulcerative calluses Loss of protective sensation of skin of foot Personal history of diabetic foot ulcer Obesity History of colon polyps Uncontrolled type 2 diabetes mellitus with insulin therapy (Chronic) Mild dilation of ascending aorta Aortic stenosis (Chronic) follows Dr. Sevilla at [facility] loc w urin obs/LUTS MAGY (obstructive sleep apnea) cpap non-compliant Ulnar neuropathy of right upper extremity (Acute) Hypertension (Chronic) Hiatal hernia (Acute) Gastroesophageal reflux disease (Chronic) Dyslipidemia (Acute) Depression (Chronic) Medical History Acute hypotension Weakness Atrial fibrillation with rapid ventricular response Vitamin D deficiency History of stroke (~1997) happened during valve surgery 1997> minimal left side weakness > doesn't follow neuro Osteoarthritis Vertigo Hearing loss left ear Ambulatory dysfunction "my legs are stiff" has a limp Allergic rhinitis Surgical History H/O Ross procedure Hx of amputation (~04/2020) left toe / diabetic ulcer Hx of colonoscopy with polypectomy Hx of aortic valve replacement using Ross procedure (~1997) [facility] History of tooth extraction full dentures History of carpal tunnel release right History of appendectomy Hx of fracture of leg (~2015) right leg with repair eu to fall from ladder Hx of elbow surgery left from [facility]va Hx of repair of right rotator cuff History of cardiac cath (~1997) @ [facility], no stents, has not seen Dr. Sevilla in a few years History of cholecystectomy Family History Mother Diabetes Valvular heart disease Heart disease Hypertension Brother Coronary heart disease Diabetes Father Hypertension Prostate cancer Denies family history of Ovarian cancer Breast cancer Colorectal cancer Social History Smoking Status: Former smoker Tobacco Type: Cigarettes Age Started Using Tobacco: 18; Age Quit Using Tobacco: 44; packs per day: 0.25; Cigarettes Per Day: 1/2 ppd; Second Hand Exposure: No; Do You Dip or Chew Tobacco: No; Tobacco Cessation Education Requested by Patient: No Hx Alcohol Use: No Hx Substance Use: Yes Preferred Language: Iranian Communication Ability: Effective Visual Impairment: Partially Limited Hearing Ability: Normal Event Lighting Specialist Required: No Beliefs That Will Affect Care: None marital status: Current Living Situation: Spouse and Family current occupational status: retired Other Information That Helps Us Care for You: No Feels Safe at Home: Yes Safety Concerns: Feels Safe At This Time Childhood Exposure to Second-Hand Smoke: No Diet: regular caffeine: Yes during the past year weight has: remained stable Dental Care, Regularly: No Physical Activity Frequency: Daily Seatbelt Use: never Assistive Devices: None Review of Systems Review of Systems: Constitutionalno fever or chills ENTno blurred vision, no double vision, no epistaxis, no sore throat Respiratoryno cough, no wheezing, no shortness of breath Cardiacno palpitations, no chest pain, no syncope Toni nausea, vomiting, diarrhea, melena, hematochezia GUno urinary retention, no urinary incontinence, no dysuria, no hematuria Musculoskeletalno joint pain, no muscle tenderness. Chronic bilateral lower extremity venous stasis changes and chronic lower extremity edema Skinno bruising, no rashes, no pruritus Neurogeneralized weakness. No focal deficits Psychno depression, no anxiety Physical Exam Physical Exam: General-alert and oriented x3, no fever, no chills HEENT-head atraumatic and normocephalic, pupils equal and reactive to light, extraocular muscles intact Neck-no lymphadenopathy or thyromegaly, trachea midline Chest-diminished breath sounds bilaterally. Faint bibasilar inspiratory rales. No wheezing Cardiac-rapid rate, irregular rhythm consistent with atrial fibrillation. Normal S1 and S2 Abdomen-normal bowel sounds, no hepatosplenomegaly Extremities-chronic stasis dermatitis bilateral lower extremities below the knees with 1-2+ pitting edema Neuro-cranial nerves II through XII intact, motor and sensory function within normal limits, strength symmetrical, no focal deficits Psych-normal affect, normal mood Results & Data Results & Data Vital Signs (Past 12 Hours) Vital Signs Pulse Resp Pulse Ox O2 Del Method 10/21/24 11:09 106 H 10/21/24 11:05 225 H 10/21/24 10:56 198 H 10/21/24 10:51 224 H 26 H 93 Room Air PG Care Time/CCT Total # of Minutes Spent Total Time Spent with Patient: Total time spent is greater than 50% in coordination of care (as documented) at patient's floor/unit and/or counseling patient: Coding Level of Care Code 17426 INT INP/OBS CARE 3/75MIN Diagnoses SVT (supraventricular tachycardia) I47.10 Type 2 diabetes mellitus E11.9 Chronic systolic CHF (congestive heart failure) I50.22 Obesity E66.9 Essential hypertension I10 Hypertension type: essential hypertension Depression F32.9 (5) Hypertension Hypertension type: essential hypertension Qualified Code(s): I10 - Essential (primary) hypertension
[2024-10-21] MEDS ORDERED: PHARMACY GLYCEMIC MGMT CONSULT PRN (12:53)
--- NOTE | 2024-10-21 12:58 | Cardiology Consultation ---
Date of Consultation October 21, 2024 Assessment & Plan (1) Wide-complex tachycardia: Differential diagnosis atrial flutter with one-to-one conduction versus ventricular tachycardia, likely latter (2) Status post Ross procedure: Autograft pulmonary valve in the aortic position, homograft in pulmonary position 1997 for severe aortic insufficiency (3) Cardiomyopathy: (4) Persistent atrial fibrillation: (5) Mild dilation of ascending aorta: (6) MAGY (obstructive sleep apnea): (7) Hypertension: Plan Complex 74-year-old male with known underlying longstanding valvular heart disease status post Ross procedure 1997 (aortic valve replacement with pulmonary valve autograft, pulmonary valve replacement with homograft), chronic left bundle branch block, persistent atrial fibrillation and diffuse cardiomyopathy. Presents today with wide-complex tachycardia rate 225 bpm with symptoms of acute tachypalpitations and diaphoresis. Episode occurred during MRI Ultimately treated with synchronized cardioversion with conversion. Issues addressed as follows 1. Wide-complex tachycardia in patient with known structural heart disease and reduced ejection fraction. Differential diagnosis atrial flutter with one-to-one conduction versus ventricular tachycardia. Likely ventricular tachycardia. Will continue IV amiodarone, metoprolol. Discontinue digoxin, fluoxetine Daily EKG Will warrant pacer defibrillator insertion, anticipate Friday depending on clinical course 2. Diffuse cardiomyopathy EF 20/25% by echocardiogram reviewed today. No progression in valvular disease. Continue Entresto, furosemide, spironolactone. 3. Persistent atrial fibrillation: Continue anticoagulation with Eliquis History of Present Illness Reason for Consultation: Wide-complex tachycardia Requesting Physician: [facility] [place] Divisionist Primary care physician Dr. Saucedo History of Present Illness Patient is a 74-year-old male with complex cardiac history 1. Congenitally bicuspid aortic valve 2. Status post Ross procedure, autograft pulmonary valve in the aortic position, homograft in pulmonary position 1997 for severe aortic insufficiency 3. Normal left dominant coronary anatomy 1997 4. Aortic dilatation, [id number] 5. Hypertension 6. Type 2 diabetes mellitus insulin requiring with associated neuropathy 7. Obstructive sleep apnea 8. New onset atrial fibrillation 04/2024 On Toprol xl and Digoxin. CHADS2-VASC score 3. 9. Diffuse cardiomyopathy with reduced ejection fraction April 2024, EF 25 to 30% Per review of patient records and discussion with patient and family presented today for an MRI to evaluate recent symptoms of gait instability and transient urinary incontinence, emotional lability. Recently begun on fluoxetine. Family notes patient intermittently compliant with medications. Notes recent mechanical fall several days ago with face contusion. Denies syncope or near syncope. Not aware of any prior tachypalpitations no chest pain or worsening shortness of breath. Today presented for MRI and during procedure developed acute tachycardia and diaphoresis. Evaluation in ER demonstrated wide-complex tachycardia rate 225 bpm. Rhythm not responsive to IV adenosine. Underwent synchronized cardioversion x 2 with 200J, 250 J with ultimately return to atrial fibrillation. Patient begun on IV amiodarone. Patient denies recent fevers chills or infections. No bleeding difficulties. Mild nipple sensitivity secondary to spironolactone Allergies Allergy/AdvReac Type Severity Reaction Status Date / Time metformin Allergy Mild DOESNT Verified 10/21/24 12:44 REMEMBER repaglinide Allergy Mild DOESNT Verified 10/21/24 12:44 REMEMBER simvastatin Allergy Mild DOESNT Verified 10/21/24 12:44 REMEMBER Iodinated Contrast Media Allergy Unknown hives, Verified 10/21/24 12:44 sick to stomach Home Medications Medication Instructions Recorded Confirmed Type lancets (OneTouch UltraSoft #50 ea 01/06/19 09/28/24 History Lancets) pen needle, diabetic 31 gauge x #30 ea 01/06/19 09/28/24 History 5/16" (BD Ultra-Fine Short Pen Needle) blood sugar diagnostic #450 ea 05/29/21 09/28/24 Rx ergocalciferol (vitamin D2) 1,250 50,000 unit PO WEEKLY #12 caps 01/06/23 09/28/24 Rx mcg (50,000 unit) capsule gabapentin 300 mg capsule 300 mg PO BID 90 days #180 caps 01/06/24 09/28/24 Rx pantoprazole 40 mg tablet,delayed 40 mg PO QAM #90 tabs 01/06/24 09/28/24 Rx release insulin aspart U-100 100 unit/mL See Rx Instructions subcut UD 90 01/13/24 09/28/24 Rx (3 mL) subcutaneous pen ( #120 mL FlexPen U-100 Insulin aspart) apixaban 5 mg tablet (Eliquis) 5 mg PO BID #60 tabs 05/03/24 09/28/24 Rx losartan 25 mg tablet 12.5 mg (1/2 x 25 mg) PO QPM #20 05/05/24 09/28/24 Rx tabs aspirin 81 mg tablet,delayed 81 mg PO QPM 05/09/24 09/28/24 History release furosemide 40 mg tablet (Lasix) 20 mg PO QAM 05/09/24 09/28/24 History metoprolol succinate 100 mg 100 mg PO BID #60 tabs 07/16/24 09/28/24 Rx tablet,extended release 24 hr digoxin 125 mcg (0.125 mg) tablet 125 mcg PO 3XWK 08/03/24 09/28/24 History digoxin 250 mcg (0.25 mg) tablet 250 mcg PO 4XWK 08/03/24 09/28/24 History empagliflozin 10 mg tablet 10 mg PO DAILY 08/03/24 09/28/24 History (Jardiance) magnesium oxide 400 mg PO DAILY 08/03/24 09/28/24 History rosuvastatin 10 mg tablet 10 mg PO DAILY 08/03/24 09/28/24 History sacubitril 24 mg-valsartan 26 mg 1 tab PO BID 08/03/24 09/28/24 History tablet (Entresto) spironolactone 25 mg tablet 12.5 mg PO DAILY 08/03/24 09/28/24 History fluoxetine 40 mg capsule 40 mg PO DAILY #90 caps 09/15/24 09/28/24 Rx flash glucose sensor (FreeStyle #2 ea 09/28/24 09/28/24 Rx Veronika 2 Sensor kit) semaglutide 0.25 mg or 0.5 mg (2 0.5 mg subcut WK 09/28/24 09/28/24 History mg/3 mL) subcutaneous pen injector (Ozempic) insulin glargine U-300 conc 300 60 - 65 unit subcut BID 10/21/24 History unit/mL (3 mL) subcutaneous pen (Toujeo Max U-300 SoloStar) Patient History Medical History Acute hypotension Weakness Atrial fibrillation with rapid ventricular response Vitamin D deficiency History of stroke (~1997) happened during valve surgery 1997> minimal left side weakness > doesn't follow neuro Osteoarthritis Vertigo Hearing loss left ear Ambulatory dysfunction "my legs are stiff" has a limp Allergic rhinitis Surgical History H/O Ross procedure Hx of amputation (~04/2020) left toe / diabetic ulcer Hx of colonoscopy with polypectomy Hx of aortic valve replacement using Ross procedure (~1997) [facility] History of tooth extraction full dentures History of carpal tunnel release right History of appendectomy Hx of fracture of leg (~2015) right leg with repair eu to fall from ladder Hx of elbow surgery left from [facility] Hx of repair of right rotator cuff History of cardiac cath (~1997) @ [facility], no stents, has not seen Dr. Sevilla in a few years History of cholecystectomy Family History Mother Diabetes Valvular heart disease Heart disease Hypertension Brother Coronary heart disease Diabetes Father Hypertension Prostate cancer Denies family history of Ovarian cancer Breast cancer Colorectal cancer Social History Smoking Status: Unknown if ever smoked Tobacco Type: Cigarettes Age Started Using Tobacco: 18; Age Quit Using Tobacco: 44; packs per day: 0.25; Cigarettes Per Day: 1/2 ppd; Second Hand Exposure: No; Do You Dip or Chew Tobacco: No; Hx Alcohol Use: No Hx Substance Use: No Preferred Language: Croatian Communication Ability: Effective Visual Impairment: Partially Limited Hearing Ability: Normal Languages And Literature Instructor Required: No Beliefs That Will Affect Care: None marital status: Current Living Situation: Spouse and Family current occupational status: retired Feels Safe at Home: Yes Childhood Exposure to Second-Hand Smoke: No Diet: regular caffeine: Yes during the past year weight has: remained stable Dental Care, Regularly: No Physical Activity Frequency: Daily Seatbelt Use: never Assistive Devices: None Review of Systems Review of Systems: All systems reviewed & are unremarkable except as noted in HPI & below Physical Exam Constitutional: no acute distress Eyes: PERRL, conjunctivae normal, anicteric sclerae ENMT: external ear and nose normal, oropharynx normal Abrasion left forehead and face Neck: trachea midline, no thyromegaly Respiratory: normal respiratory effort, lungs clear to auscultation Cardiovascular: Rate/Rhythm: + irregularly irregular Heart Sounds: + murmur (Grade 1-2 or 6 systolic murmur Left upper sternal) Vessels: no JVD Extremities: no edema Gastrointestinal (Abdomen): normal bowel sounds, soft, nontender, no hepatosplenomegaly Results & Data Vital Signs (Past 12 Hours) Vital Signs Pulse Pulse Resp BP BP Pulse Ox O2 Del Method 10/21/24 12:30 88 16 123/71 99 10/21/24 12:00 90 14 111/67 100 10/21/24 11:45 90 12 107/65 95 10/21/24 11:18 197 H 20 123/85 100 Nasal Cannula 10/21/24 11:18 Nasal Cannula 10/21/24 11:15 92 H 17 123/79 94 10/21/24 11:13 100 Nasal Cannula 10/21/24 11:10 189 H 28 H 136/81 99 10/21/24 11:09 106 H 10/21/24 11:05 225 H 10/21/24 11:02 191 H 24 123/85 99 10/21/24 10:56 198 H 10/21/24 10:51 224 H 26 H 93 Room Air O2 Flow Rate 10/21/24 12:30 10/21/24 12:00 10/21/24 11:45 10/21/24 11:18 4 10/21/24 11:18 4 10/21/24 11:15 10/21/24 11:13 4 10/21/24 11:10 10/21/24 11:09 10/21/24 11:05 10/21/24 11:02 10/21/24 10:56 10/21/24 10:51 Laboratory Results Laboratory Results - last 24 hr 10/21/24 10/21/24 10/21/24 11:00 11:06 14:12 WBC 11.10 H RBC 5.37 Hgb 14.8 Hct 46.2 MCV 86.0 MCH 27.6 MCHC 32.0 RDW Std Deviation 48.3 H RDW Coeff of Vandana 15.5 H Plt Count 273 MPV 11.3 Immature Gran % (Auto) 0.5 Neut % (Auto) 69.5 Lymph % (Auto) 22.9 Moca % (Auto) 6.0 Eos % (Auto) 0.5 Baso % (Auto) 0.6 Neut # (Auto) 7.70 H Lymph # (Auto) 2.54 Moca # (Auto) 0.67 H Eos # (Auto) 0.06 Baso # (Auto) 0.07 Immature Gran # (Auto) 0.06 Sodium 137 Potassium 4.1 Chloride 102 Carbon Dioxide 20 L Anion Gap 15 H BUN 12 Creatinine 1.06 Est Cr Clr Drug Dosing Not Reportable eGFR 74.57 BUN/Creatinine Ratio 11.3 Glucose 317 H* POC Glucose 271 H Calcium 9.5 Total Bilirubin 1.8 H AST 72 H ALT 33 Alkaline Phosphatase 117 H Troponin I High Sens 7.9 Total Protein 7.3 Albumin 4.2 Globulin 3.1 Albumin/Globulin Ratio 1.4 Lipase 14 Digoxin 0.4 L (7) Hypertension Hypertension type: essential hypertension Qualified Code(s): I10 - Essential (primary) hypertension
[2024-10-21] MEDS ORDERED: DIGOXIN 0.25 MG TAB PO SCH (13:00)
[2024-10-21] MEDS ORDERED: DIGOXIN 0.125 MG TAB PO SCH (13:00)
[2024-10-21] MEDS: Patient's HEIGHT &/or WEIGHT Needed SCH (13:18)
[2024-10-21] MEDS: INSULIN ASPART PER UNIT CHARGE SC SCH (14:22)
[2024-10-21] MEDS ORDERED: DEXTROSE 50% 50 ML SYRINGE IV PRN (15:00)
[2024-10-21] MEDS ORDERED: GLUCOSE 10 TAB/TUBE PO PRN (15:00)
[2024-10-21] MEDS ORDERED: GLUCAGON FOR INJ 1 MG VIAL SQ PRN (15:00)
--- NOTE | 2024-10-21 15:09 | Pharmacy Report ---
Pharmacy Glycemic Short Note 2 - Date of Service October 21, 2024 - Glycemic Short BSG Results (Last 24 hours): 10/21/24 10/21/24 11:06 14:12 Glucose 317 H* POC Glucose 271 H OUTPATIENT ANTIDIABETIC REGIMEN: * Toujeo 64 units BID, Novolog 20 units with breakfast, 30 units with supper (reduced to 10 units if more activity/not eating as much as typical, or hold if not eating, Semaglutide 0.25 mg /week * A1c 8.9% 08/11/24 ASSESSMENT: * Patient admitted following cardioversion in the ED. BSG elevated 317 mg/dL initially. * Reviewed recent endocrine visit, anticipate lower needs in hospital d/t diet changes * Will start with weight based stress of 2 novolog, basal --> review trend for adjustments PLAN FOR INPATIENT GLYCEMIC CONTROL: * Hold outpatient oral diabetes medications * Basal insulin * Lantus 20 units SQ BID * Bolus insulin * NovoLog per scale ACHS or Q6hrs while NPO * Goal Range: Low 120 mg/dL - High 160 mg/dL * Correction Factor: 20 mg/dL/unit * Nutritional / Prandial insulin per carb ratio of 1 unit per 7 grams CHO consumed
[2024-10-21] MEDS ORDERED: PNEUMOCOCCAL VACCINE (PCV20) 20-VAL CONJ-DIP CRM/PF 0.5 ML SYR IM ONE (15:45)
[2024-10-21] MEDS: LANTUS PER UNIT CHARGE SC SCH (17:46)
[2024-10-21] MEDS: AMIODARONE / D5W 360 MG/200 ML BAG IV SCH (18:05)
[2024-10-21] MEDS ORDERED: LOSARTAN POTASSIUM 25 MG TAB PO SCH (21:00)
[2024-10-21] MEDS: APIXABAN 5 MG TABLET PO SCH (21:23)
[2024-10-21] MEDS: METOPROLOL SUCC 50MG EXT REL TAB PO SCH (21:23)
[2024-10-21] MEDS: VALSARTAN/SACUBITRIL 26/24MG TAB PO SCH (21:23)
[2024-10-21] MEDS: GABAPENTIN 300 MG CAP PO SCH (21:24)
[2024-10-21] MEDS: ASPIRIN 81 MG ECTAB PO SCH (21:24)
[2024-10-22 06:57] LABS: Basophils # (auto) 0.03 K/uL (0.00-0.20); Basophils % (auto) 0.2 %; Eosinophils # (auto) 0.02 K/uL (0.00-0.50); Eosinophils % (auto) 0.2 %; Hemoglobin 14.1 g/dl (14.0-18.0); Immature Granulocytes # (auto) 0.05 K/uL (0.01-0.20); Immature Granulocytes % (auto) 0.4 %; Lymphocytes # (auto) 1.37 K/uL (1.20-3.40); Mean Corpuscular Hemoglobin 28.5 pg (25.0-34.0); Mean Corpuscular Hgb Conc 33.6 g/dL (32.0-36.0); Mean Corpuscular Volume 84.8 fL (80.0-100.0); Mean Platelet Volume 11.1 fL (9.4-12.4); Monocytes # (auto) 0.74 K/uL (0.11-0.59); Monocytes % (auto) 5.9 %; Neutrophils % (auto) 82.3 %; Platelet Count 213 K/uL (130-400); RDW Coefficient of Variation 15.8 % (11.5-14.5); RDW Standard Deviation 48.5 fL (36.4-46.3); Red Blood Count 4.95 M/uL (4.70-6.10); White Blood Count 12.51 K/ul (4.8-10.8)
[2024-10-22 07:26] LABS: Albumin Globulin Ratio 1.6 (0.9-2); BUN Creatinine Ratio 18.2 (10-20); Bilirubin,Total 1.5 mg/dl (0.2-1.0); C Reactive Protein 1.81 mg/dl (0-0.5); Calcium 8.8 mg/dl (8.6-10.3); Creatinine Clr Calc Pharmacy 82.8 ml/min; Globulin 2.5 gm/dl (2.5-4.0); Potassium 4.6 mmol/L (3.5-5.1); Total Protein 6.4 gm/dl (6.0-8.3)
[2024-10-22] MEDS: SPIRONOLACTONE 12.5 MG TAB PO SCH (08:02)
[2024-10-22] MEDS: PANTOprazole 40 MG TAB PO SCH (08:02)
[2024-10-22] MEDS: ROSUVASTATIN CALCIUM 10 MG TAB PO SCH (08:02)
[2024-10-22] MEDS: MAGNESIUM OXIDE 400 MG TAB PO SCH (08:02)
--- NOTE | 2024-10-22 08:39 | Electrocardiogram Report ---
Test Reason : Blood Pressure : */* mmHG Vent. Rate : 105 BPM Atrial Rate : 105 BPM P-R Int : 176 ms QRS Dur : 158 ms QT Int : 414 ms P-R-T Axes : * -65 103 degrees QTcB Int : 547 ms Sinus tachycardia Left axis deviation Left bundle branch block Abnormal ECG When compared with ECG of 21-Oct-2024 10:53, (unconfirmed) Sinus rhythm has replaced Wide QRS tachycardia Vent. rate has decreased by 119 bpm Confirmed by Connor Foster ([id number]) on 10/22/2024 8:38:39 AM Referred By: Confirmed By: Connor Foster
--- NOTE | 2024-10-22 08:43 | Electrocardiogram Report ---
Test Reason : Blood Pressure : */* mmHG Vent. Rate : 224 BPM Atrial Rate : * BPM P-R Int : * ms QRS Dur : 186 ms QT Int : 226 ms P-R-T Axes : * -81 222 degrees QTcB Int : 436 ms Poor data quality, interpretation may be adversely affected Wide QRS tachycardia Left axis deviation Left bundle branch block Abnormal ECG When compared with ECG of 10-Jul-2024 16:51, Wide QRS tachycardia has replaced Atrial fibrillation Vent. rate has increased by 133 bpm Confirmed by Connor Foster ([id number] on 10/22/2024 8:43:35 AM Referred By: Confirmed By: Connor Foster
[2024-10-22] MEDS: LANTUS PER UNIT CHARGE SC SCH (08:48)
[2024-10-22] MEDS ORDERED: FLUoxetine HCL 20 MG CAP PO SCH (09:00)
[2024-10-22 10:20] LABS: Magnesium 1.8 mg/dl (1.7-2.4)
--- NOTE | 2024-10-22 10:51 | Cardiology Progress Note ---
Date of Service October 22, 2024 Assessment & Plan (1) Wide-complex tachycardia: Plan: Differential diagnosis atrial flutter with one-to-one conduction versus ventricular tachycardia, likely latter (2) Status post Ross procedure: Plan: Autograft pulmonary valve in the aortic position, homograft in pulmonary position 1997 for severe aortic insufficiency (3) Cardiomyopathy: (4) Persistent atrial fibrillation: (5) Mild dilation of ascending aorta: (6) MAGY (obstructive sleep apnea): (7) Hypertension: Plan 10/21/[address] Roel Washington 74-year-old male with known underlying longstanding valvular heart disease status post Ross procedure 1997 (aortic valve replacement with pulmonary valve autograft, pulmonary valve replacement with homograft), chronic left bundle branch block, persistent atrial fibrillation and diffuse cardiomyopathy. Presents today with wide-complex tachycardia rate 225 bpm with symptoms of acute tachypalpitations and diaphoresis. Episode occurred during MRI Ultimately treated with synchronized cardioversion with conversion. Issues addressed as follows 1. Wide-complex tachycardia in patient with known structural heart disease and reduced ejection fraction. Differential diagnosis atrial flutter with one-to-one conduction versus ventricular tachycardia. Likely ventricular tachycardia. Will continue IV amiodarone, metoprolol. Discontinue digoxin, fluoxetine Daily EKG Will warrant pacer defibrillator insertion, anticipate Friday depending on clinical course 2. Diffuse cardiomyopathy EF 20/25% by echocardiogram reviewed today. No progression in valvular disease. Continue Entresto, furosemide, spironolactone. 3. Persistent atrial fibrillation: Continue anticoagulation with Eliquis 10/22/24: No recurrent wide complex tachycardia last evening -continue IV amiodarone load -Continue metoprolol 100 mg BID -check magnesium Persistent afib - rates controlled -continue Eliquis. May need to hold dose this weekend for BIV AICD implant on Friday Cardiomyopathy, LVEF 20-25% -Continue Entresto, spironolactone and furosemide -appears euvolemic Case discussed with Dr. Sevilla I spent a total of 40 minutes on the date of service in preparation, delivery, and documentation of the care provided to this patient, excluding any time spent in the performance of separately billed services. Sweta Lo PA-C Department of Cardiology, [facility] This chart was completed in part utilizing Speech Voice Recognition Software. Grammatical errors, random word insertions, pronoun errors, and incomplete sentences are an occasional consequence of this system due to software limitations, ambient noise, and hardware issues. Any formal questions or concerns about the content, text, or information contained within the body of this dictation should be directly addressed to the provider for clarification. Admission and Anticipated Discharge Date Admission Date: October 21, 2024 Supervising Physician Co-Signing Physician Notes Patient seen and personally examined. Full assessment and plan as outlined by advanced provider above. Chart telemetry reviewed. Has maintained sinus since yesterday afternoon. No further sustained tachyarrhythmias. Tolerating amiodarone without significant QT prolongation. Impression: Wide-complex tachycardia/ventricular tachycardia, sustained, symptomatic requiring cardioversion. Plan: Continue IV amiodarone infusion today with transition to oral Continue current medications but may require reduction in metoprolol dosing Patient requires BiV pacer defibrillator with tentative plans for Friday af ternoon N.p.o. after midnight Friday Hold Eliquis Friday evening I spent a total of 30 minutes on the date of service in preparation, delivery, and documentation of the care provided to this patient, excluding any time spent in the performance of separately billed services. Subjective Patient resting in bed comfortably. Denies acute cardiac complaints. No dyspnea reported. Still wearing supplemental O2. No chest pain. No palpitations or dizziness. Review of Systems Review of Systems: All systems reviewed & are unremarkable except as noted in HPI & below Physical Exam Constitutional: no acute distress Neck: trachea midline, no thyromegaly Respiratory: normal respiratory effort, lungs clear to auscultation Cardiovascular: Rate/Rhythm: regular rate Heart Sounds: + murmur (Grade 1-2 or 6 systolic murmur Left upper sternal) Vessels: no JVD Extremities: no edema Gastrointestinal (Abdomen): normal bowel sounds, soft, nontender, no hepatosplenomegaly Results & Data Vital Signs (Past 12 Hours) Vital Signs Temp Pulse Pulse Resp BP Pulse Ox O2 Del Method 10/22/24 07:04 36.7 C 74 111/70 92 Nasal Cannula 10/22/24 03:03 37.4 C 76 18 111/70 92 Nasal Cannula 10/21/24 23:32 37.6 C H 86 20 136/82 92 Nasal Cannula 10/21/24 23:00 89 O2 Flow Rate 10/22/24 07:04 2 10/22/24 03:03 4 10/21/24 23:32 4 10/21/24 23:00 Laboratory Results Cardiac Enzymes 10/21/24 10/22/24 Range/Units 11:06 06:23 AST 72 H 30 (13-39) U/L Troponin I High Sens 7.9 (0-20) pg/ml CBC 10/21/24 10/22/24 Range/Units 11:06 06:23 WBC 11.10 H 12.51 H (4.8-10.8) K/ul RBC 5.37 4.95 (4.70-6.10) M/uL Hgb 14.8 14.1 (14.0-18.0) g/dl Hct 46.2 42.0 (42.0-52.0) % Plt Count 273 213 (130-400) K/uL Neut # (Auto) 7.70 H 10.30 H (1.40-6.50) K/uL Lymph # (Auto) 2.54 1.37 (1.20-3.40) K/uL Mclennan # (Auto) 0.67 H 0.74 H (0.11-0.59) K/uL Eos # (Auto) 0.06 0.02 (0.00-0.50) K/uL Baso # (Auto) 0.07 0.03 (0.00-0.20) K/uL Comprehensive Metabolic Panel 10/21/24 10/22/24 Range/Units 11:06 06:23 Sodium 137 135 L (136-145) mmol/L Potassium 4.1 4.6 (3.5-5.1) mmol/L Chloride 102 102 (98-107) mmol/L Carbon Dioxide 20 L 27 (21-32) mmol/L BUN 12 18 (6-23) mg/dl Creatinine 1.06 0.99 (0.6-1.4) mg/dl Glucose 317 H* 182 H (70-99(Fasting)) mg/dl Calcium 9.5 8.8 (8.6-10.3) mg/dl AST 72 H 30 (13-39) U/L ALT 33 30 (7-52) U/L Alkaline Phosphatase 117 H 97 (34-104) U/L Total Protein 7.3 6.4 (6.0-8.3) gm/dl Albumin 4.2 3.9 (3.4-5.0) gm/dl Intake and Output 10/21/24 10/22/24 10/22/24 22:59 06:59 14:59 Intake Total 200 / 517.338 317.338 / 517.338 Output Total 250 / 450 200 / 450 Balance -50 / 67.338 117.338 / 67.338 Intake: IV 200 / 397.338 197.338 / 397.338 Amiodarone / D5w 360 mg In 200 200 / 397.338 197.338 / 397.338 ml @ 0.5 MG/MIN 16.667 mls/hr IV .Q12H [facility] Rx#:[id number] Oral 120 / 120 Output: Urine 250 / 450 200 / 450 Other: Weight 99.1 kg 100.6 kg Weight Measurement Method Built in Bedscale Built in Bedscale Diagnostic Findings Telemetry reviewed: Appears sinus with frequent PVC's EKG from this morning: Afib vs sinus with long first degree AV block LBBB QT/QTC 442/493 ms Medications Administered Current Inpatient Medications Apixaban (Apixaban 5 Mg Tablet) 5 mg PO BID ADDI Stop: 11/20/24 20:59 Last Admin: 10/22/24 08:02 Dose: 5 mg Aspirin (Aspirin 81 Mg Ectab) 81 mg PO QPM ADDI Stop: 11/20/24 20:59 Last Admin: 10/21/24 21:24 Dose: 81 mg Dextrose (Dextrose 50% 50 Ml Syringe) 25 - 50 ml IV UD PRN; Protocol PRN Reason: Hypoglycemia Protocol Stop: 11/20/24 14:59 Ergocalciferol (Ergocalciferol 1250 Mcg (50,000 Units) Cap) 1,250 mcg PO Q7D [facility]DI Stop: 11/22/24 08:59 Gabapentin (Gabapentin 300 Mg Cap) 300 mg PO BID ADDI Stop: 11/20/24 20:59 Last Admin: 10/22/24 08:02 Dose: 300 mg Glucagon (Glucagon For Inj 1 Mg Vial) 1 mg SQ UD PRN; Protocol PRN Reason: Hypoglycemia Protocol Stop: 11/20/24 14:59 Glucose (Glucose 40% Gel 15 Gm Tube) 15 - 30 gm PO UD PRN; Protocol PRN Reason: Hypoglycemia Protocol Stop: 11/20/24 14:59 Glucose (Glucose 10 Tab/Tube) 4 - 8 tab PO UD PRN; Protocol PRN Reason: Hypoglycemia Protocol Stop: 11/20/24 14:59 Amiodarone HCl/Dextrose (Nexterone / D5w) 360 mg in 200 mls @ 16.667 mls/hr IV .Q12H [facility] Stop: 11/20/24 17:59 Last Admin: 10/22/24 05:54 Dose: 0.5 mg/min, 16.7 mls/hr Insulin Aspart (Insulin Aspart Per Unit Charge) 0 units SC ACHS ADDI Stop: 11/20/24 13:29 Last Admin: 10/22/24 08:00 Dose: 9 units Insulin Glargine (Lantus Per Unit Charge) 30 units SC BID [facility]DI Stop: 11/21/24 08:59 Last Admin: 10/22/24 08:48 Dose: 30 units Magnesium Oxide (Magnesium Oxide 400 Mg Tab) 400 mg PO DAILY [facility] Stop: 11/21/24 08:59 Last Admin: 10/22/24 08:02 Dose: 400 mg Metoprolol Succinate (Metoprolol Succ 50mg Ext Rel Tab) 100 mg PO BID [facility] Stop: 11/20/24 20:59 Last Admin: 10/22/24 08:01 Dose: 100 mg Miscellaneous (Carbohydrates For Hypoglycemia ) 15 - 30 gm PO UD PRN PRN Reason: Hypoglycemia Treatment Stop: 11/20/24 14:59 Miscellaneous Information (Pharmacy Glycemic Mgmt Consult) 1 each N/A UD PRN; Protocol PRN Reason: Consult Stop: 11/20/24 12:52 Pantoprazole Sodium (Pantoprazole 40 Mg Tab) 40 mg PO QAM [facility] Stop: 11/21/24 08:59 Last Admin: 10/22/24 08:02 Dose: 40 mg Rosuvastatin Calcium (Rosuvastatin Calcium 10 Mg Tab) 10 mg PO DAILY [facility] Stop: 11/21/24 08:59 Last Admin: 10/22/24 08:02 Dose: 10 mg Sacubitril/Valsartan (Valsartan/Sacubitril 26/24mg Tab) 1 tab PO BID [facility] Stop: 11/20/24 20:59 Last Admin: 10/22/24 08:02 Dose: 1 tab Spironolactone (Spironolactone 12.5 Mg Tab) 12.5 mg PO DAILY [facility] Stop: 11/21/24 08:59 Last Admin: 10/22/24 08:02 Dose: 12.5 mg (7) Hypertension Hypertension type: essential hypertension Qualified Code(s): I10 - Essential (primary) hypertension
--- NOTE | 2024-10-22 13:24 | Pharmacy Report ---
Pharmacy Glycemic Short Note 2 - Date of Service October 22, 2024 - Glycemic Short BSG Results (Last 24 hours): 10/21/24 10/21/24 10/21/24 14:12 16:08 20:21 Glucose POC Glucose 271 H 192 H 149 H 10/22/24 10/22/24 06:23 07:05 Glucose 182 H POC Glucose 171 H OUTPATIENT ANTIDIABETIC REGIMEN: * Toujeo 64 units BID, Novolog 20 units with breakfast, 30 units with supper (reduced to 10 units if more activity/not eating as much as typical, or hold if not eating, Semaglutide 0.25 mg /week * A1c 8.9% 08/11/24 ASSESSMENT: 10/22 * Enmanuel received 34units of insulin yesterday while admitted (20 units were basal and 14 units were bolus) * Fasting BSG was 171mg/dL this morning. The Lantus was increased to 30 units SQ BID. * Lunch BSG was still above the goal range, so the CR of the bolus insulin was tightened. 10/21 * Patient admitted following cardioversion in the ED. BSG elevated 317 mg/dL initially. * Reviewed recent endocrine visit, anticipate lower needs in hospital d/t diet changes * Will start with weight based stress of 2 novolog, basal --> review trend for adjustments PLAN FOR INPATIENT GLYCEMIC CONTROL: * Hold outpatient diabetes medications * Basal insulin * Lantus 30 units SQ BID * Bolus insulin * NovoLog per scale ACHS or Q6hrs while NPO * Goal Range: Low 120 mg/dL - High 160 mg/dL * Correction Factor: 20 mg/dL/unit * Nutritional / Prandial insulin per carb ratio of 1 unit per 6 grams CHO consumed
--- NOTE | 2024-10-22 14:55 | Electrocardiogram Report ---
Test Reason : Blood Pressure : */* mmHG Vent. Rate : 75 BPM Atrial Rate : * BPM P-R Int : * ms QRS Dur : 144 ms QT Int : 442 ms P-R-T Axes : * -71 107 degrees QTcB Int : 493 ms Sinus rhythm with 1st degree AV block and a single PAC Left axis deviation Left bundle branch block Abnormal ECG When compared with ECG of 21-Oct-2024 11:10, QT has shortened Confirmed by Connor Foster ([id number]) on 10/22/2024 2:55:23 PM Referred By: REFERRED SELF Confirmed By: Connor Foster
[2024-10-22] MEDS: FUROSEMIDE INJ 20 MG/2 ML VIAL IV ONE (17:23)
[2024-10-22] MEDS: AMIODARONE 200 MG TAB PO SCH (17:27)
[2024-10-22] MEDS: CARBOHYDRATES FOR HYPOGLYCEMIA PO PRN (20:13)
[2024-10-22] MEDS: INSULIN ASPART PER UNIT CHARGE SC SCH (23:33)
--- NOTE | 2024-10-22 23:51 | Hospitalist Progress Note ---
Date of Service October 22, 2024 Assessment & Plan (1) SVT (supraventricular tachycardia): (2) Type 2 diabetes mellitus: (3) Chronic systolic CHF (congestive heart failure): (4) Obesity: (5) Hypertension: (6) Depression: Plan #SVT/ wide complex tachycardia/ s/p Ross Procedure/ persistanr atrial fibrillation Patient not taking Dig. Will place on amiodarone and metoprolol. stop dig and fluoxetine. HR appears to be controlled #possible acute on Chronic systolic CHF (congestive heart failure): Known ejection fraction of 25%. Patient will need to have a defibrillator.. Monitor intake and output x-ray with some pulmonary comngestion, ordered lasix #Type 2 diabetes mellitus: ADA diet. Basal insulin therapy. Sliding scale coverage Admission and Anticipated Discharge Date Admission Date: October 21, 2024 Subjective 74 yo male reports no new symptoms. Physical Exam Physical Exam: General-alert and oriented x3, no fever, no chills HEENT-head atraumatic and normocephalic, pupils equal and reactive to light, extraocular muscles intact Neck-no lymphadenopathy or thyromegaly, trachea midline Chest-diminished breath sounds bilaterally. Faint bibasilar inspiratory rales. No wheezing Cardiac-rapid rate, irregular rhythm consistent with atrial fibrillation. Normal S1 and S2 Abdomen-normal bowel sounds, no hepatosplenomegaly Extremities-chronic stasis dermatitis bilateral lower extremities below the knees with 1-2+ pitting edema Neuro-cranial nerves II through XII intact, motor and sensory function within normal limits, strength symmetrical, no focal deficits Psych-normal affect, normal mood Results & Data Results & Data Vital Signs (Past 12 Hours) Vital Signs Temp Pulse Pulse Pulse Resp BP Pulse Ox 10/22/24 23:25 37 C 72 18 110/68 92 10/22/24 23:00 68 10/22/24 20:00 10/22/24 19:20 37.1 C 79 18 100/68 93 10/22/24 18:07 74 10/22/24 16:08 37 C 75 108/69 94 10/22/24 16:00 O2 Del Method O2 Flow Rate 10/22/24 23:25 Nasal Cannula 4 10/22/24 23:00 10/22/24 20:00 Nasal Cannula 4 10/22/24 19:20 Nasal Cannula 4 10/22/24 18:07 10/22/24 16:08 Nasal Cannula 4 10/22/24 16:00 Nasal Cannula 4 PG Care Time/CCT Total # of Minutes Spent Total Time Spent with Patient: Total time spent is greater than 50% in coordination of care (as documented) at patient's floor/unit and/or counseling patient: Coding Level of Care Code 04309 SUB INP/OBS CARE 3/50MIN Diagnoses SVT (supraventricular tachycardia) I47.10 Type 2 diabetes mellitus E11.9 Chronic systolic CHF (congestive heart failure) I50.22 Obesity E66.9 Essential hypertension I10 Hypertension type: essential hypertension Depression F32.9 (5) Hypertension Hypertension type: essential hypertension Qualified Code(s): I10 - Essential (primary) hypertension
[2024-10-23] MEDS ORDERED: INSULIN ASPART PER UNIT CHARGE SC SCH
[2024-10-23 07:22] LABS: Hematocrit (blood only) 41.2 % (42.0-52.0); Hemoglobin 13.6 g/dl (14.0-18.0); Mean Corpuscular Hemoglobin 28.3 pg (25.0-34.0); Mean Corpuscular Volume 85.7 fL (80.0-100.0); Mean Platelet Volume 11.4 fL (9.4-12.4); Platelet Count 204 K/uL (130-400); RDW Coefficient of Variation 15.7 % (11.5-14.5); RDW Standard Deviation 48.7 fL (36.4-46.3); Red Blood Count 4.81 M/uL (4.70-6.10); White Blood Count 10.45 K/ul (4.8-10.8)
[2024-10-23 07:43] LABS: BUN Creatinine Ratio 28.7 (10-20); Creatinine Clr Calc Pharmacy 81.6 ml/min; Potassium 4.3 mmol/L (3.5-5.1)
[2024-10-23 07:57] LABS: Thyroid Stimulating Hormone 7.268 uIu/ml (0.300-4.500)
[2024-10-23] MEDS: ERGOCALCIFEROL 1250 MCG (50,000 UNITS) CAP PO SCH (08:10)
--- NOTE | 2024-10-23 08:38 | Cardiology Progress Note ---
Date of Service October 23, 2024 Assessment & Plan (1) Wide-complex tachycardia: Plan: Differential diagnosis atrial flutter with one-to-one conduction versus ventricular tachycardia, likely latter (2) Status post Ross procedure: Plan: Autograft pulmonary valve in the aortic position, homograft in pulmonary position 1997 for severe aortic insufficiency (3) Cardiomyopathy: (4) Persistent atrial fibrillation: (5) Mild dilation of ascending aorta: (6) MAGY (obstructive sleep apnea): (7) Hypertension: Plan 74-year-old male with complex past medical history significant for known underlying longstanding valvular heart disease s/p Ross procedure (1997) with AVR with pulmonary valve autograft and PVR with homograft, chronic LBBB, persistent AFIB, diffuse cardiomyopathy, HTN, T2DM, and MAGY who presented 10/21/24 with wide-complex tachycardia with rate of 225 bpm with associated tachy palpitations and diaphoresis which occurred during MRI of lower back. Treated with synchronized cardioversion with conversion to NSR. 10/21/24: 1. Wide-complex tachycardia in patient with known structural heart disease and reduced ejection fraction. Differential diagnosis atrial flutter with one-to-one conduction versus ventricular tachycardia. Likely ventricular tachycardia. Will continue IV amiodarone, metoprolol. Discontinue digoxin, fluoxetine Daily EKG Will warrant pacer defibrillator insertion, anticipate Friday depending on clinical course 2. Diffuse cardiomyopathy EF 20/25% by echocardiogram reviewed today. No progression in valvular disease. Continue Entresto, furosemide, spironolactone. 3. Persistent atrial fibrillation: Continue anticoagulation with Eliquis 10/22/24: No recurrent wide complex tachycardia last evening -continue IV amiodarone load -Continue metoprolol 100 mg BID -check magnesium Persistent afib - rates controlled -continue Eliquis. May need to hold dose this weekend for BIV AICD implant on Friday Cardiomyopathy, LVEF 20-25% -Continue Entresto, spironolactone and furosemide -appears euvolemic 10/23/24 Wide-complex tachycardia possibly secondary to atrial flutter with one-to-one conduction versus ventricular tachycardia -Stable with no recurrent episodes of wide complex tachycardia -Sinus rhythm with rates 60-80s and occasional PAC/PVCs upon telemetry review -Continue PO amiodarone and toPROL XL as per current regimen -Continue to monitor and replace electrolytes as needed (goal K+ 4.0; Mg 2.0) Persistent AFIB -Continue Eliquis 5 mg BID for stroke prophylaxis -Plan to hold anticoagulant therapy on Friday evening and Friday morning for upcoming BIV AICD implant on Friday Cardiomyopathy (LVEF 20-25%) -Worsening respiratory status and increased to 6L via NC this AM -Blood pressure borderline low -Administer one-time dose of IV Lasix 20 mg for diuresis -Continue Entresto and spironolactone as per current regimen Case discussed and coordinated with Dr. Govea. Please see Dr. Govea notes for further recommendations. I spent a total of 30 minutes coordinating, documenting, and providing care for this patient excluding time spent in the performance of separately billed services or time spent by another provider/QHP. JOE Black Department of Cardiology Admission and Anticipated Discharge Date Admission Date: October 21, 2024 Supervising Physician Co-Signing Physician Notes I spent a total of 30 minutes on the date of service in preparation, delivery, and documentation of the care provided to this patient, excluding any time spent in the performance of separately billed services. I have personally performed a history and physical examination on the patient. I have reviewed the advance practitioner's documentation, and I agree with, and take responsibility for the plan of care. Subjective Seen today by cardiology for examination and follow-up. Laying comfortably in bed and remains on supplemental oxygen with 4L via NC. He notes ongoing inte rmittent left-sided rib pain since cardioversion. Denies chest pressure, pain, tachy palpitations, worsening shortness of breath, orthopnea, PND, lightheadedness, syncope, or worsening edema. Chart, telemetry, and medications personally reviewed. Review of Systems Review of Systems: See HPI for pertinent positives. All others negative other than those noted in the HPI. CONSTITUTIONAL: No change in weight, No weakness, No fatigue, No fevers, No sweats or chills. HEENT: No visual changes, No epistaxis, No bleeding gums, No dysphagia, PULMONARY: No cough, sputum, or hemoptysis, No wheezing, No shortness of breath, and No recent change in breathing. CARDIOVASCULAR: No chest pain, No dyspnea on exertion, No edema, No palpitations, No syncope, No claudication, No calf pain. GASTROINTESTINAL: No change in appetite, No abdominal pain, No change in bowel habits, No significant heartburn, No nausea, No vomiting, No diarrhea, No constipation, No blood in stools or black tarry stools, No dysphagia. HEMATOLOGIC: No abnormal bleeding and No bruising. NEUROLOGICAL: No falls, No dizziness, No lightheadedness, Normal balance, No headaches, and No weakness. PSYCH: No sleep disturbances, No mood changes. Physical Exam Physical Exam: Vital signs within normal limits as above. General: Well developed and nourished. No acute distress. A+Ox3. HEENT: Normocephalic. Atraumatic. EOMI. Conjunctiva and sclera clear. NECK: Trachea midline. No thyromegaly. No carotid bruits. No JVD. Carotid upstrokes are brisk. Heart: Regular rhythm. Normal rate. S1 and S2 noted. No murmur. No rubs or butts ps. PMI non displaced. Lungs: No acute respiratory distress. Clear to auscultation. No wheezes.No rhonchi. No rales. Abdomen: Normal bowel sounds. Soft. Nontender. No abdominal bruits. Extremities: Normal capillary refill. No edema. No clubbing or cyanosis. Pulses: radial=2/4, dorsal pedis=2/4. Skin: Warm and dry. NEURO: No focal deficits. PSYCH: Appropriate affect and insight. Results & Data Vital Signs (Past 12 Hours) Vital Signs Temp Pulse Pulse Resp BP Pulse Ox O2 Del Method 10/23/24 07:42 36.6 C 74 22 116/82 97 Nasal Cannula 10/23/24 03:23 36.7 C 65 18 98/67 L 95 Nasal Cannula 10/22/24 23:25 37 C 72 18 110/68 92 Nasal Cannula 10/22/24 23:00 68 O2 Flow Rate 10/23/24 07:42 4 10/23/24 03:23 4 10/22/24 23:25 4 10/22/24 23:00 Laboratory Results CBC 10/23/24 Range/Units 06:42 WBC 10.45 (4.8-10.8) K/ul RBC 4.81 (4.70-6.10) M/uL Hgb 13.6 L (14.0-18.0) g/dl Hct 41.2 L (42.0-52.0) % Plt Count 204 (130-400) K/uL Comprehensive Metabolic Panel 10/23/24 Range/Units 06:42 Sodium 134 L (136-145) mmol/L Potassium 4.3 (3.5-5.1) mmol/L Chloride 100 (98-107) mmol/L Carbon Dioxide 28 (21-32) mmol/L BUN 29 H (6-23) mg/dl Creatinine 1.01 (0.6-1.4) mg/dl Glucose 93 (70-99(Fasting)) mg/dl Calcium 9.0 (8.6-10.3) mg/dl Intake and Output 10/22/24 10/23/24 10/23/24 22:59 06:59 14:59 Intake Total 200 / 320 120 / 320 Output Total 400 / 400 Balance -200 / -80 120 / -80 Intake: IV 200 / 200 Amiodarone / D5w 360 mg In 200 200 / 200 ml @ 0.5 MG/MIN 16.667 mls/hr IV .Q12H [facility] Rx#:[id number] Oral 120 / 120 Output: Other 400 / 400 Other: # Unmeasured Voids 1 Weight 101.8 kg Weight Measurement Method Built in [facility] Diagnostic Findings EKG 10/23/24 Sinus rhythm with 1st degree AV block LBBB 63 bpm QTc 458 EKG 10/22/24 Sinus rhythm with 1st degree AV block and PAC LBBB 75 bpm QTc 493 ECHO 10/21/24 Left ventricle is normal in size Moderate concentric left ventricular hypertrophy Septal motion is consistent with conduction abnormality Severe global hypokinesis of the left ventricle LVEF = 20-25% Left atrium is moderately dilated Right atrium is mildly dilated Status post Ross procedure Autograft aortic valve leaflets moved freely. There is no aortic insufficiency or stenosis. A homograft is present The gradient is normal for this prosthetic pulmonic valve There is milder-moderate mitral regurgitation There is mild tricuspid regurgitation Right ventricular systolic pressure is elevated at 40-50 mmHg (7) Hypertension Hypertension type: essential hypertension Qualified Code(s): I10 - Essential (primary) hypertension
--- NOTE | 2024-10-23 11:40 | Electrocardiogram Report ---
Test Reason : Blood Pressure : */* mmHG Vent. Rate : 63 BPM Atrial Rate : 63 BPM P-R Int : 240 ms QRS Dur : 136 ms QT Int : 448 ms P-R-T Axes : 84 -66 117 degrees QTcB Int : 458 ms Sinus rhythm with 1st degree A-V block Left axis deviation Left bundle branch block Abnormal ECG When compared with ECG of 22-Oct-2024 09:27, Nonspecific T wave abnormality, worse in Lateral leads Confirmed by Jv Moura ([id number]) on 10/23/2024 11:40:14 AM Referred By: REFERRED SELF Confirmed By: Jv Moura
[2024-10-23] MEDS: FUROSEMIDE INJ 20 MG/2 ML VIAL IV ONE ×2 (13:12→14:32)
--- NOTE | 2024-10-23 17:14 | XRay Report ---
Chest radiograph, one view History: Shortness of breath Comparison: 10/21/2024 Findings: Single AP view of the chest performed. No focal consolidation. New small bilateral pleural effusions. No pneumothorax. The cardiomediastinal silhouette is within normal limits. Somewhat indistinct pulmonary vascularity. No evidence for lymphadenopathy. No visualized bony or soft tissue abnormality. Median sternotomy wires. Impression: New small pleural effusions. Somewhat indistinct pulmonary vascularity, which may be seen with early pulmonary edema Electronically signed by Connor He 10-23-2024 5:14 PM
[2024-10-23] MEDS: LANTUS PER UNIT CHARGE SC SCH (20:53)
--- NOTE | 2024-10-23 22:51 | Hospitalist Progress Note ---
Date of Service October 23, 2024 Assessment & Plan (1) SVT (supraventricular tachycardia): (2) Type 2 diabetes mellitus: (3) Chronic systolic CHF (congestive heart failure): (4) Obesity: (5) Hypertension: (6) Depression: Plan #SVT/ wide complex tachycardia/ s/p Ross Procedure/ persistanr atrial fibrillation Patient not taking Dig. Will place on amiodarone and metoprolol. stop dig and fluoxetine. HR appears to be controlled #possible acute on Chronic systolic CHF (congestive heart failure): Known ejection fraction of 25%. Patient will need to have a defibrillator.. Monitor intake and output repeat x-ray with some pulmonary congestion, ordered lasix. His oxygen requiremenrt has fluctuated today from 2 liters to 6 liters. #Type 2 diabetes mellitus: ADA diet. Basal insulin therapy. Sliding scale coverage Admission and Anticipated Discharge Date Admission Date: October 21, 2024 Subjective Patient reports no new symptoms. Physical Exam Physical Exam: General-alert and oriented x3, no fever, no chills HEENT-head atraumatic and normocephalic, pupils equal and reactive to light, extraocular muscles intact Neck-no lymphadenopathy or thyromegaly, trachea midline Chest-diminished breath sounds bilaterally. Faint bibasilar inspiratory rales. No wheezing Cardiac-rapid rate, irregular rhythm consistent with atrial fibrillation. Normal S1 and S2 Abdomen-normal bowel sounds, no hepatosplenomegaly Extremities-chronic stasis dermatitis bilateral lower extremities below the knees with 1-2+ pitting edema Neuro-cranial nerves II through XII intact, motor and sensory function within normal limits, strength symmetrical, no focal deficits Psych-normal affect, normal mood Results & Data Results & Data Vital Signs (Past 12 Hours) Vital Signs Temp Pulse Pulse Resp BP Pulse Ox O2 Del Method 10/23/24 21:02 81 100/61 10/23/24 19:43 Nasal Cannula 10/23/24 19:14 36.9 C 74 16 96/62 L 98 Nasal Cannula 10/23/24 15:30 37.0 C 65 22 101/66 100 Nasal Cannula 10/23/24 13:47 58 L 10/23/24 12:26 90/55 L 76 L Nasal Cannula O2 Flow Rate 10/23/24 21:02 10/23/24 19:43 6 10/23/24 19:14 10/23/24 15:30 2 10/23/24 13:47 10/23/24 12:26 4 PG Care Time/CCT Total # of Minutes Spent Total Time Spent with Patient: Total time spent is greater than 50% in coordination of care (as documented) at patient's floor/unit and/or counseling patient: Coding Level of Care Code 73043 SUB INP/OBS CARE 3/50MIN Diagnoses SVT (supraventricular tachycardia) I47.10 Type 2 diabetes mellitus E11.9 Chronic systolic CHF (congestive heart failure) I50.22 Obesity E66.9 Essential hypertension I10 Hypertension type: essential hypertension Depression F32.9 (5) Hypertension Hypertension type: essential hypertension Qualified Code(s): I10 - Essential (primary) hypertension
[2024-10-24 07:36] LABS: Hematocrit (blood only) 40.1 % (42.0-52.0); Hemoglobin 13.4 g/dl (14.0-18.0); Mean Corpuscular Hemoglobin 28.4 pg (25.0-34.0); Mean Corpuscular Hgb Conc 33.4 g/dL (32.0-36.0); Platelet Count 185 K/uL (130-400); RDW Coefficient of Variation 15.5 % (11.5-14.5); RDW Standard Deviation 47.6 fL (36.4-46.3); Red Blood Count 4.72 M/uL (4.70-6.10); White Blood Count 8.92 K/ul (4.8-10.8)
[2024-10-24 07:51] LABS: Albumin Globulin Ratio 1.4 (0.9-2); BUN Creatinine Ratio 41.5 (10-20); Bilirubin,Total 1.3 mg/dl (0.2-1.0); C Reactive Protein 6.7 mg/dl (0-0.5); Calcium 8.9 mg/dl (8.6-10.3); Creatinine Clr Calc Pharmacy 77.8 ml/min; Globulin 2.5 gm/dl (2.5-4.0); Potassium 4.8 mmol/L (3.5-5.1); Total Protein 6.1 gm/dl (6.0-8.3)
--- NOTE | 2024-10-24 09:07 | Cardiology Progress Note ---
Date of Service October 24, 2024 Assessment & Plan (1) Wide-complex tachycardia: Plan: Differential diagnosis atrial flutter with one-to-one conduction versus ventricular tachycardia, likely latter (2) Status post Ross procedure: Plan: Autograft pulmonary valve in the aortic position, homograft in pulmonary position 1997 for severe aortic insufficiency (3) Cardiomyopathy: (4) Persistent atrial fibrillation: (5) Mild dilation of ascending aorta: (6) MAGY (obstructive sleep apnea): (7) Hypertension: Plan 74-year-old male with complex past medical history significant for known underlying longstanding valvular heart disease s/p Ross procedure (1997) with AVR with pulmonary valve autograft and PVR with homograft, chronic LBBB, persistent AFIB, diffuse cardiomyopathy, HTN, T2DM, and MAGY who presented 10/21/24 with wide-complex tachycardia with rate of 225 bpm with associated tachy palpitations and diaphoresis which occurred during MRI of lower back. Treated with synchronized cardioversion with conversion to NSR. 10/21/24: 1. Wide-complex tachycardia in patient with known structural heart disease and reduced ejection fraction. Differential diagnosis atrial flutter with one-to-one conduction versus ventricular tachycardia. Likely ventricular tachycardia. Will continue IV amiodarone, metoprolol. Discontinue digoxin, fluoxetine Daily EKG Will warrant pacer defibrillator insertion, anticipate Friday depending on clinical course 2. Diffuse cardiomyopathy EF 20/25% by echocardiogram reviewed today. No progression in valvular disease. Continue Entresto, furosemide, spironolactone. 3. Persistent atrial fibrillation: Continue anticoagulation with Eliquis 10/22/24: No recurrent wide complex tachycardia last evening -continue IV amiodarone load -Continue metoprolol 100 mg BID -check magnesium Persistent afib - rates controlled -continue Eliquis. May need to hold dose this weekend for BIV AICD implant on Friday Cardiomyopathy, LVEF 20-25% -Continue Entresto, spironolactone and furosemide -appears euvolemic 10/23/24 Wide-complex tachycardia possibly secondary to atrial flutter with one-to-one conduction versus ventricular tachycardia -Stable with no recurrent episodes of wide complex tachycardia -Sinus rhythm with rates 60-80s and occasional PAC/PVCs upon telemetry review -Continue PO amiodarone and toPROL XL as per current regimen -Continue to monitor and replace electrolytes as needed (goal K+ 4.0; Mg 2.0) Persistent AFIB -Continue Eliquis 5 mg BID for stroke prophylaxis -Plan to hold anticoagulant therapy on Friday evening and Friday morning for upcoming BIV AICD implant on Friday Cardiomyopathy (LVEF 20-25%) -Worsening respiratory status and increased to 6L via NC this AM -Good response to IV diuresis with 1L total output yesterday -Administer one-time dose of IV Lasix 20 mg for diuresis -Continue Entresto and spironolactone as per current regimen 10/24/24 Wide-complex tachycardia possibly secondary to atrial flutter with one-to-one conduction versus ventricular tachycardia -Stable with no recurrent episodes of wide complex tachycardia -Sinus rhythm with rates 60-80s and occasional PAC/PVCs upon telemetry review -Continue PO amiodarone and toPROL XL as per current regimen -Continue to monitor and replace electrolytes as needed (goal K+ 4.0; Mg 2.0) Persistent AFIB -Continue Eliquis 5 mg BID for stroke prophylaxis -Plan to hold anticoagulant therapy on this evening and Friday morning for upcoming BIV AICD implant on Friday Cardiomyopathy (LVEF 20-25%) -Worsening respiratory status and increased to 6L via NC this AM possibly secondary to acute PE versus chronic underlying lung disease -Does not appear significantly volume overloaded upon examination -Kidney function and electrolytes WNL on AM labs -Plan for CT Chest today to rule out PE -Hold Entresto given borderline low blood pressure -Continue spironolactone as per current regimen Case discussed and coordinated with Dr. Govea. Please see Dr. Govea notes for further recommendations. I spent a total of 30 minutes coordinating, documenting, and providing care for this patient excluding time spent in the performance of separately billed services or time spent by another provider/QHP. JOE Black Department of Cardiology Admission and Anticipated Discharge Date Admission Date: October 21, 2024 Supervising Physician Co-Signing Physician Notes I spent a total of 30 minutes on the date of service in preparation, delivery, and documentation of the care provided to this patient, excluding any time spent in the performance of separately billed services. I have personally performed a history and physical examination on the patient. I have reviewed the advance practitioner's documentation, and I agree with, and take responsibility for the plan of care. 74-year-old male with a past medical history of valvular heart disease status post Ross procedure 1997 (AVR with pulmonary valve autograft, TVR with homograft), chronic left bundle branch, chronic atrial fibrillation, nonischemic cardiomyopathy had presented for an MRI last week and during the procedure be developed acute tachycardia and diaphoresis. He was found to have a wide- complex tachycardia at a rate of 225 bpm. Initially was given IV adenosine which did not have helped break the rhythm and he underwent synchronized cardioversion x 2 with 200 J and then 250 J which ultimately return patient to atrial fibrillation and was begun on IV amiodarone and subsequently switched to p.o. amiodarone. Case was discussed with EP who had recommended an ICD placement. Patient has remained hypoxic since admission despite also getting IV diuretics. He otherwise denies significant shortness of breath and does not appear to be significantly volume overloaded. He does tell me that he has underlying obstructive sleep apnea and was supposed to be wearing a CPAP but has not done so as he states he is currently still waiting for his CPAP machine. Echocardiogram done during this admission showed LVEF of 20 to 25%, no aortic valve regurgitation or stenosis normal gradients across prosthetic pulmonary valve, mild to moderate MR, mild TR with mild to moderate pulmonary hypertension. Will hold off on IV Lasix today. May consider CTA of the chest given his persistent hypoxia. He is currently laying down flat without significant orthopnea. He denies chest pain or dyspnea. On clinical exam is euvolemic. Will continue to hold Entresto due to borderline reduced blood pressure. Hold evening dose and morning dose Eliquis in anticipation for BiV ICD for tomorrow. Subjective Seen by cardiology today for examination and follow-up. Seen today and resting comfortably in chair on 6 L via NC. Dyspnea on exertion with ambulated in room. Denies chest pressure, pain, tachy palpitations, lightheadedness, syncope, orthopnea, PND, or worsening edema. Chart, medications, and telemetry personally reviewed. Review of Systems Review of Systems: See HPI for pertinent positives. All others negative other than those noted in the HPI. CONSTITUTIONAL: No change in weight, No weakness, No fatigue, No fevers, No sweats or chills. HEENT: No visual changes, No epistaxis, No bleeding gums, No dysphagia, PULMONARY: No cough, sputum, or hemoptysis, No wheezing, No shortness of breath, and No recent change in breathing. CARDIOVASCULAR: No chest pain, No dyspnea on exertion, No edema, No palpitations, No syncope, No claudication, No calf pain. GASTROINTESTINAL: No change in appetite, No abdominal pain, No change in bowel habits, No significant heartburn, No nausea, No vomiting, No diarrhea, No constipation, No blood in stools or black tarry stools, No dysphagia. HEMATOLOGIC: No abnormal bleeding and No bruising. NEUROLOGICAL: No falls, No dizziness, No lightheadedness, Normal balance, No headaches, and No weakness. PSYCH: No sleep disturbances, No mood changes. Physical Exam Physical Exam: Vital signs within normal limits as above. General: Well developed and nourished. No acute distress. A+Ox3. HEENT: Normocephalic. Atraumatic. EOMI. Conjunctiva and sclera clear. NECK: Trachea midline. No thyromegaly. No carotid bruits. No JVD. Carotid upstrokes are brisk. Heart: RRR. S1 and S2 noted. No murmur. No rubs or gallops. PMI non displaced. Lungs: Diminished breath sounds throughout with fine crackles in bilateral lower lobes. Abdomen: Normal bowel sounds. Soft. Nontender. No abdominal bruits. Extremities: Normal capillary refill. No edema. No clubbing or cyanosis. Pulses: radial=2/4, dorsal pedis=2/4. Skin: Warm and dry. NEURO: No focal deficits. PSYCH: Appropriate affect and insight. Results & Data Vital Signs (Past 12 Hours) Vital Signs Temp Pulse Pulse Resp BP Pulse Ox O2 Del Method 10/24/24 07:18 36.8 C 60 20 105/58 L 97 Nasal Cannula 10/24/24 03:04 37.1 C 61 16 109/69 99 Nasal Cannula 10/23/24 23:16 66 10/23/24 23:01 37.3 C 62 18 97/61 L 97 Nasal Cannula O2 Flow Rate 10/24/24 07:18 6.0 10/24/24 03:04 10/23/24 23:16 10/23/24 23:01 Laboratory Results Cardiac Enzymes 10/24/24 Range/Units 06:53 AST 19 (13-39) U/L B-Natriuretic Peptide 722 H (0-100) pg/ml Coagulation 10/24/24 Range/Units 06:53 B-Natriuretic Peptide 722 H (0-100) pg/ml CBC 10/24/24 Range/Units 06:53 WBC 8.92 (4.8-10.8) K/ul RBC 4.72 (4.70-6.10) M/uL Hgb 13.4 L (14.0-18.0) g/dl Hct 40.1 L (42.0-52.0) % Plt Count 185 (130-400) K/uL Comprehensive Metabolic Panel 10/24/24 Range/Units 06:53 Sodium 130 L (136-145) mmol/L Potassium 4.8 (3.5-5.1) mmol/L Chloride 97 L (98-107) mmol/L Carbon Dioxide 27 (21-32) mmol/L BUN 44 H (6-23) mg/dl Creatinine 1.06 (0.6-1.4) mg/dl Glucose 210 H (70-99(Fasting)) mg/dl Calcium 8.9 (8.6-10.3) mg/dl AST 19 (13-39) U/L ALT 23 (7-52) U/L Alkaline Phosphatase 79 (34-104) U/L Total Protein 6.1 (6.0-8.3) gm/dl Albumin 3.6 (3.4-5.0) gm/dl Intake and Output 10/23/24 10/24/24 10/24/24 22:59 06:59 14:59 Intake Total 800 / 1280 120 / 1280 Output Total 375 / 1025 350 / 1025 300 / 300 Balance 425 / 255 -230 / 255 -300 / -300 Intake: Oral 800 / 1280 120 / 1280 Output: Urine 375 / 1025 350 / 1025 300 / 300 Other: Weight 102 kg Weight Measurement Method Built [facility] Diagnostic Findings EKG 10/24/24 NSR with 1st degree AV block LBBB 61 bpm QTc 489 ECHO 10/21/24 Left ventricle is normal in size Moderate concentric left ventricular hypertrophy Septal motion is consistent with conduction abnormality Severe global hypokinesis of the left ventricle LVEF = 20-25% Left atrium is moderately dilated Right atrium is mildly dilated Status post Ross procedure Autograft aortic valve leaflets moved freely. There is no aortic insufficiency or stenosis. A homograft is present The gradient is normal for this prosthetic pulmonic valve There is milder-moderate mitral regurgitation There is mild tricuspid regurgitation Right ventricular systolic pressure is elevated at 40-50 mmHg Chest X-Ray 10/23/24 15:13 Chest radiograph, one view History: Shortness of breath Comparison: 10/21/2024 Findings: Single AP view of the chest performed. No focal consolidation. New small bilateral pleural effusions. No pneumothorax. The cardiomediastinal silhouette is within normal limits. Somewhat indistinct pulmonary vascularity. No evidence for lymphadenopathy. No visualized bony or soft tissue abnormality. Median sternotomy wires. Impression: New small pleural effusions. Somewhat indistinct pulmonary vascularity, which may be seen with early pulmonary edema Electronically signed by Connor He 10-23-2024 5:14 PM (7) Hypertension Hypertension type: essential hypertension Qualified Code(s): I10 - Essential (primary) hypertension
[2024-10-24] MEDS: LANTUS PER UNIT CHARGE SC SCH (09:10)
[2024-10-24] MEDS ORDERED: HYDROCORTISONE SOD SUCCINATE 100 MG/2 ML VIAL IV STA (11:11)
[2024-10-24] MEDS ORDERED: HYDROCORTISONE SOD SUCCINATE 100 MG/2 ML VIAL IV ONE (15:11)
[2024-10-24] MEDS ORDERED: diphenhydrAMINE 50 MG/ML VIAL IV ONE (15:11)
[2024-10-24] MEDS: HYDROCORTISONE SOD 200 MG in SYRINGE 0 ML IV ONE ×2 (16:29→20:17)
[2024-10-24] MEDS: diphenhydrAMINE 50 MG/ML VIAL IV ONE (20:17)
[2024-10-24] MEDS: OPTIRAY 320 125ml IV ONE (21:18)
--- NOTE | 2024-10-24 23:44 | Hospitalist Progress Note ---
Date of Service October 24, 2024 Assessment & Plan (1) SVT (supraventricular tachycardia): (2) Type 2 diabetes mellitus: (3) Chronic systolic CHF (congestive heart failure): (4) Obesity: (5) Hypertension: (6) Depression: Plan #SVT/ wide complex tachycardia/ s/p Ross Procedure/ persistanr atrial fibrillation Patient not taking Dig. Will place on amiodarone and metoprolol. stop dig and fluoxetine. HR appears to be controlled plan for defribillator #hypoxia/ acute hypoxic respiratory failure Unsure cause not responding to diuretics, nor does he appear to be volume overloaded will consider cta chest protocol to review #possible acute on Chronic systolic CHF (congestive heart failure): Known ejection fraction of 25%. Patient will need to have a defibrillator.. Monitor intake and output repeat x-ray with some pulmonary congestion, ordered lasix. His oxygen requiremenrt has fluctuated today from 2 liters to 6 liters. #Type 2 diabetes mellitus: ADA diet. Basal insulin therapy. Sliding scale coverage Admission and Anticipated Discharge Date Admission Date: October 21, 2024 Subjective Patient reports no changes. Physical Exam Physical Exam: General-alert and oriented x3, no fever, no chills HEENT-head atraumatic and normocephalic, pupils equal and reactive to light, extraocular muscles intact Neck-no lymphadenopathy or thyromegaly, trachea midline Chest-diminished breath sounds bilaterally. Faint bibasilar inspiratory rales. No wheezing Cardiac-rapid rate, irregular rhythm consistent with atrial fibrillation. Normal S1 and S2 Abdomen-normal bowel sounds, no hepatosplenomegaly Extremities-chronic stasis dermatitis bilateral lower extremities below the knees with 1-2+ pitting edema Neuro-cranial nerves II through XII intact, motor and sensory function within normal limits, strength symmetrical, no focal deficits Psych-normal affect, normal mood Results & Data Results & Data Vital Signs (Past 12 Hours) Vital Signs Temp Pulse Pulse Resp BP Pulse Ox O2 Del Method 10/24/24 22:52 36.3 C L 62 17 111/72 96 Nasal Cannula 10/24/24 19:40 Nasal Cannula 10/24/24 19:11 37.3 C 66 17 119/79 97 Nasal Cannula 10/24/24 16:00 57 L 10/24/24 15:46 36.4 C L 62 18 105/71 98 Nasal Cannula O2 Flow Rate 10/24/24 22:52 4 10/24/24 19:40 4 10/24/24 19:11 6 10/24/24 16:00 10/24/24 15:46 6 PG Care Time/CCT Total # of Minutes Spent Total Time Spent with Patient: Total time spent is greater than 50% in coordination of care (as documented) at patient's floor/unit and/or counseling patient: Coding Level of Care Code 40354 SUB INP/OBS CARE 3/50MIN Diagnoses SVT (supraventricular tachycardia) I47.10 Type 2 diabetes mellitus E11.9 Chronic systolic CHF (congestive heart failure) I50.22 Obesity E66.9 Essential hypertension I10 Hypertension type: essential hypertension Depression F32.9 (5) Hypertension Hypertension type: essential hypertension Qualified Code(s): I10 - Essential (primary) hypertension
[2024-10-24] MEDS ORDERED: Nursing to Pharmacy Communication SCH (23:45)
--- NOTE | 2024-10-25 04:14 | CT Scan Report ---
Exam(s): CTA CHEST IV Amt: OPTIRAY [id number] EXAM: CT Angiography Chest With Intravenous Contrast CLINICAL HISTORY: Reason for exam: PE. TECHNIQUE: Axial computed tomographic angiography images of the chest with intravenous contrast. Automated exposure control was utilized for the study. A dose lowering technique was utilized adhering to the principles of ALARA. MIP reconstructed images were created and reviewed. COMPARISON: No relevant prior studies available. FINDINGS: Pulmonary arteries: Motion artifact limits evaluation. Despite this, no evidence of pulmonary embolism within the pulmonary outflow tract or proximal branches. Aorta: Aortic value and root calcifications. No thoracic aortic aneurysm. Hepatic veins: Reflux of contrast in the hepatic venous system which can be seen with right heart failure. Lungs: Calcifications noted within the pulmonary outflow tract. Dependent airspace disease in the lungs which likely relates to compressive atelectasis. Non dependent ground-glass opacities within the lungs, most prominent in the right upper lobe, which may relate to alveolar pulmonary edema. Infection not excluded. Pleural space: Moderate right and small left pleural effusions which are favored to relate to volume overload. No pneumothorax. Heart: Cardiomegaly. Bones/joints: Degenerative changes in the spine. 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 Sternotomy changes. No acute fracture. No dislocation. Soft tissues: Unremarkable. Lymph nodes: Unremarkable. No enlarged lymph nodes. IMPRESSION: 1. Motion artifact limits evaluation. Despite this, no evidence of pulmonary embolism within the pulmonary outflow tract or proximal branches. 2. Moderate right and small left pleural effusions which are favored to relate to volume overload. 3. Cardiomegaly. 4. Aortic value and root calcifications. 5. Calcifications noted within the pulmonary outflow tract. 6. Reflux of contrast in the hepatic venous system which can be seen with right heart failure. 7. Dependent airspace disease in the lungs which likely relates to compressive atelectasis. 8. Non dependent ground-glass opacities within the lungs, most prominent in the right upper lobe, which may relate to alveolar pulmonary edema. Infection not excluded. Electronically signed by: Emile Aranda MD 10/25/24 04:13 AM
[2024-10-25] MEDS: INSULIN ASPART PER UNIT CHARGE SC SCH ×2 (05:55→20:43)
[2024-10-25 06:41] LABS: Hematocrit (blood only) 40.9 % (42.0-52.0); Hemoglobin 13.8 g/dl (14.0-18.0); Mean Corpuscular Hemoglobin 28.3 pg (25.0-34.0); Mean Corpuscular Hgb Conc 33.7 g/dL (32.0-36.0); Mean Corpuscular Volume 83.8 fL (80.0-100.0); Mean Platelet Volume 11.9 fL (9.4-12.4); Platelet Count 216 K/uL (130-400); RDW Standard Deviation 45.8 fL (36.4-46.3); Red Blood Count 4.88 M/uL (4.70-6.10); White Blood Count 8.68 K/ul (4.8-10.8)
[2024-10-25 07:00] LABS: BUN Creatinine Ratio 44.7 (10-20); C Reactive Protein 4.81 mg/dl (0-0.5); Calcium 9.4 mg/dl (8.6-10.3); Creatinine Clr Calc Pharmacy 87.2 ml/min; Potassium 5.1 mmol/L (3.5-5.1)
[2024-10-25] MEDS: LANTUS PER UNIT CHARGE SC SCH (08:13)
[2024-10-25] MEDS: ALBUMIN 25% 25 GM/100 ML VIAL IV ONE (10:29)
[2024-10-25] MEDS: FUROSEMIDE 40 MG/4 ML VIAL IV ONE (10:29)
[2024-10-25] MEDS ORDERED: HYDROCORTISONE SOD 200 MG in SYRINGE 0 ML IV ONE (11:30)
--- NOTE | 2024-10-25 12:12 | Cardiology Progress Note ---
Date of Service October 25, 2024 Assessment & Plan (1) Wide-complex tachycardia: (2) Chronic systolic CHF (congestive heart failure): (3) LBBB (left bundle branch block): (4) Cardiomyopathy: (5) Status post Ross procedure: (6) Mild dilation of ascending aorta: Plan: 74-year-old male with known underlying longstanding valvular heart disease status post Ross procedure 1998 at [facility] (aortic valve replacement with pulmonary valve autograft, pulmonary valve replacement with homograft), chronic left bundle branch block, persistent atrial fibrillation and diffuse cardiomyopathy. Presents today with wide-complex tachycardia rate 225 bpm with symptoms of acute tachypalpitations and diaphoresis. Episode occurred during MRI Ultimately treated with synchronized cardioversion with conversion. -Although the presence of hemodynamically significant coronary artery disease not definitively excluded, history, presentation, echocardiogram findings consistent with dyssynchrony related cardiomyopathy in the setting of left bundle branch block. -Patient does not utilize supplemental oxygen at home and still has a significant oxygen requirement today, having been on 4 L, most recently weaned. Has moderate-sized right pleural effusion noted on CT scan performed on 10/24/2024. LVEF on echo 10/21/24: 20-25%, with abnormal septal motion consistent with left bundle branch block, severe global left ventricular hypokinesis otherwise, gradient across the prosthetic aortic valve within normal limits, LVEF 50% on outpatient echo 11/2023. Plan: * Eliquis on hold for invasive procedure, most recent dose morning of 10/24/2024. * Continue aspirin, rosuvastatin, Entresto, metoprolol succinate 100 mg twice daily, amiodarone (IV amiodarone earlier this hospital stay, now on oral 20 mg 3 times daily) * Hold spironolactone due to mildly elevated potassium, 5.1 mmol/L * Agree with plans for ongoing diuretic therapy, 40 mg IV Lasix today as blood pressure allows with regards to pleural effusion * Patient able to lie supine without orthopnea * Tentative plan for biventricular pacemaker/AICD today (RA lead, left bundle lead, RV ICD lead) Admission and Anticipated Discharge Date Admission Date: October 21, 2024 Subjective Patient seen in cardiology follow up. Denies chest pain or orthopnea. Telemetry reveals sinus bradycardia in the 50s with left bundle brand block. Physical Exam Physical Exam: Temp Pulse Resp BP Pulse Ox O2 Del Method O2 Flow Rate 36.4 C L 49 L 18 121/74 97 Room Air 4 10/25/24 11:19 10/25/24 11:19 10/25/24 11:19 10/25/24 11:19 10/25/24 11:19 10/25/24 11:19 10/25/24 08:00 General: no acute distress and stated age Eyes: conjunctiva are pink and non-injected, sclera clear Neck: normal jugular venous pulse, no hepatojugular reflux Chest: normal shape and normal respiratory effort Lungs: clear to auscultation and percussion Cardiac Exam: - regular heart sounds, no murmurs, rubs, or gallops, no jugular venous distention Abdomen: abdomen soft, non-tender, no abnormal masses and no hepatosplenomegaly Musculoskeletal: no gait disturbance, no weakness Extremities: no edema and no cyanosis Neuro:awake, conversant, follows commands, no focal motor deficits Psych: appropriate affect and insight. Results & Data Vital Signs (Past 12 Hours) Vital Signs Temp Pulse Pulse Resp BP BP Pulse Ox 10/25/24 11:19 36.4 C L 49 L 18 121/74 97 10/25/24 08:00 55 L 10/25/24 08:00 10/25/24 07:22 36.3 C L 55 L 16 114/72 99 10/25/24 02:50 36.3 C L 57 L 17 116/72 97 10/25/24 01:16 63 O2 Del Method O2 Flow Rate 10/25/24 11:19 Room Air 10/25/24 08:00 10/25/24 08:00 Nasal Cannula 4 10/25/24 07:22 Nasal Cannula 4 10/25/24 02:50 Nasal Cannula 4 10/25/24 01:16 Laboratory Results CBC 10/25/24 Range/Units 06:08 WBC 8.68 (4.8-10.8) K/ul RBC 4.88 (4.70-6.10) M/uL Hgb 13.8 L (14.0-18.0) g/dl Hct 40.9 L (42.0-52.0) % Plt Count 216 (130-400) K/uL Comprehensive Metabolic Panel 10/25/24 Range/Units 06:08 Sodium 131 L (136-145) mmol/L Potassium 5.1 (3.5-5.1) mmol/L Chloride 98 (98-107) mmol/L Carbon Dioxide 26 (21-32) mmol/L BUN 42 H (6-23) mg/dl Creatinine 0.94 (0.6-1.4) mg/dl Glucose 282 H (70-99(Fasting)) mg/dl Calcium 9.4 (8.6-10.3) mg/dl
--- NOTE | 2024-10-25 13:48 | History & Physical Bridge Note ---
Date of Service October 25, 2024 History & Physical Bridge Note I have examined the patient, reviewed the History & Physical and in the interval since the performance of the History & Physical I have noted the following changes of clinical significance: pt admitted with worsening chronic heart failure with reduced EF-NYHA Class III, Permanent atrial fibrillation, TBS with high degree AV block that will requiring ventricular pacing; pt was recommended a BiV ICD prior to hospital discharge. Discussed the procedure and potential risks with the patient he expressed an understanding and consents signed. A formal shared decision making process was performed with Enmanuel Salcedo today utilizing the IDECIDE ICD evidence based tool from [employer] [place] [employer] Patient Cent[employer] Decisions. The discussion that followed was collaborative: detailing the information, risks, and benefits provided by the tool. We also discussed the values and preferences of Enmanuel Salcedo to build a consensus regarding the preferred treatment plan. A decision was reached to proceed with BiV ICD.
--- NOTE | 2024-10-25 13:50 | Pre Anesthesia Assessment ---
Date of Service October 25, 2024 Pre Sedation Assessment Vital Signs Temp Pulse Pulse Resp BP BP Pulse Ox 10/25/24 12:00 10/25/24 11:19 36.4 C L 49 L 18 121/74 97 10/25/24 08:00 55 L 10/25/24 08:00 10/25/24 07:22 36.3 C L 55 L 16 114/72 99 10/25/24 02:50 36.3 C L 57 L 17 116/72 97 10/25/24 01:16 63 10/24/24 22:52 36.3 C L 62 17 111/72 96 10/24/24 19:40 10/24/24 19:11 37.3 C 66 17 119/79 97 10/24/24 16:00 57 L 10/24/24 15:46 36.4 C L 62 18 105/71 98 Pulse Ox O2 Del Method O2 Del Method O2 Flow Rate 10/25/24 12:00 95 Room Air 10/25/24 11:19 Room Air 10/25/24 08:00 10/25/24 08:00 Nasal Cannula 4 10/25/24 07:22 Nasal Cannula 4 10/25/24 02:50 Nasal Cannula 4 10/25/24 01:16 10/24/24 22:52 Nasal Cannula 4 10/24/24 19:40 Nasal Cannula 4 10/24/24 19:11 Nasal Cannula 6 10/24/24 16:00 10/24/24 15:46 Nasal Cannula 6 Cardiovascular + bradycardic Respiratory normal respiratory effort, lungs clear to auscultation Pre-Sedation Airway Assessment Smoking Status: Former smoker Hx Sleep Apnea: No Hx Difficult Intubation: No Short, Thick Neck: No Thyromental Distance: < 3.5 Finger Breadths Oral Cavity: + Dental Abnormalities and + WNL Mallampati Class: II ASA: ASA3 NPO Status Date of Last Intake of Fluids: 10/24/24 Date of Last Intake of Solid Food: 10/24/24 Procedure Planning Contraindications for Sedation: none Current Medications Reviewed: Yes Notes The planned sedation has been discussed with the patient. Informed Consent was obtained. I have identified the patient, determined the appropriateness of sedation and have assessed the patient immediately prior to the procedure. All medicine(s) and interventions are by my order.
--- NOTE | 2024-10-25 13:57 | Pharmacy Report ---
Pharmacy Glycemic Short Note 2 - Date of Service October 25, 2024 - Glycemic Short BSG Results (Last 24 hours): 10/24/24 10/24/24 10/25/24 16:21 20:05 05:49 Glucose POC Glucose 188 H 203 H 269 H 10/25/24 10/25/24 06:08 11:21 Glucose 282 H POC Glucose 221 H OUTPATIENT ANTIDIABETIC REGIMEN: * Toujeo 64 units BID, Novolog 20 units with breakfast, 30 units with supper (reduced to 10 units if more activity/not eating as much as typical, or hold if not eating, Semaglutide 0.25 mg /week HbA1c: 8.9% 08/11/24 ASSESSMENT: 10/25/24: * Blood sugars elevated yesterday (ranging 188-265 mg/dL) * Received 84 units of insulin (35 units of basal and 49 units of prandial/correctional bolus) * Fasting blood sugar elevated this morning at 269 mg/dL * NPO for EP lab today 10/22 * Enmanuel received 34units of insulin yesterday while admitted (20 units were basal and 14 units were bolus) * Fasting BSG was 171mg/dL this morning. The Lantus was increased to 30 units SQ BID. * Lunch BSG was still above the goal range, so the CR of the bolus insulin was tightened. 10/21 * Patient admitted following cardioversion in the ED. BSG elevated 317 mg/dL initially. * Reviewed recent endocrine visit, anticipate lower needs in hospital d/t diet changes * Will start with weight based stress of 2 novolog, basal --> review trend for adjustments PLAN FOR INPATIENT GLYCEMIC CONTROL: * Hold outpatient diabetes medications * Basal insulin * Lantus 25 units SC this AM * Lantus 0-10-20 units SC this evening * Reassess in AM * Bolus insulin * NovoLog per scale ACHS or Q6hrs while NPO * Goal Range: Low 120 mg/dL - High 160 mg/dL * Correction Factor: 15 mg/dL/unit * Nutritional / Prandial insulin per carb ratio of 1 unit per 5 grams CHO consumed
--- NOTE | 2024-10-25 15:26 | Post Anesthesia Assessment ---
Date of Service October 25, 2024 Post Sedation Assessment Vital Signs Temp Pulse Pulse Resp BP BP Pulse Ox 10/25/24 15:21 52 L 10/25/24 13:55 59 L 16 112/72 96 10/25/24 12:00 10/25/24 11:19 36.4 C L 49 L 18 121/74 97 10/25/24 08:00 55 L 10/25/24 08:00 10/25/24 07:22 36.3 C L 55 L 16 114/72 99 10/25/24 02:50 36.3 C L 57 L 17 116/72 97 10/25/24 01:16 63 10/24/24 22:52 36.3 C L 62 17 111/72 96 10/24/24 19:40 10/24/24 19:11 37.3 C 66 17 119/79 97 10/24/24 16:00 57 L 10/24/24 15:46 36.4 C L 62 18 105/71 98 Pulse Ox O2 Del Method O2 Del Method O2 Flow Rate 10/25/24 15:21 10/25/24 13:55 Room Air 10/25/24 12:00 95 Room Air 10/25/24 11:19 Room Air 10/25/24 08:00 10/25/24 08:00 Nasal Cannula 4 10/25/24 07:22 Nasal Cannula 4 10/25/24 02:50 Nasal Cannula 4 10/25/24 01:16 10/24/24 22:52 Nasal Cannula 4 10/24/24 19:40 Nasal Cannula 4 10/24/24 19:11 Nasal Cannula 6 10/24/24 16:00 10/24/24 15:46 Nasal Cannula 6 Recovery Score Activity: Moves 4 extremities Respiration: Deep Breath/Cough Circulation: +/-20% PreAnes Value Consciousness: Fully Awake Oxygen Saturation: > 92% On Room Air Discharge Sedation Level of Care: Fast Track Phase II Post Sedation Plan On clinical assessment, the patient appears to have tolerated the sedation without complications. Patient is recovering as anticipated. Patient will continue to be monitored by nursing and may be discharged when sedation discharge criteria are met per below protocol. Upon Completions of procedure up to 15 minutes continue every 5 minute vital signs and the P.A.R. score; then discharge to a Phase I or Fast Track to Phase II per the following guidelines: * Discharge Patient to appropriate Phase II area if PAR is 8 or greater or return to pre- procedure baseline. The post - procedure orders will be as directed. * If PAR score is less than 8 or not return to pre-procedure baseline then patient will follow Phase I monitoring till PAR is reached for Phase II. The Phase I may be done in procedure room or may call to secure a Phase I area. * If naloxone or flumazenil are used for reversal, hold in Phase I for continued monitoring from when last reversal dose was given for a minimum of 60 minutes or longer pending the nurse and/or physician discretion of patient condition before discharge to Phase II. Please call the Sedation Physician to re-evaluate and complete post-note for discharge to Phase II area. Do NOT discharge from procedure sedation or Phase 1 until post- sedation evaluation note is complete by procedure /sedation MD Sedation Discharge Instructions to be given to the patient at discharge to home.
[2024-10-25] MEDS: LIDOCAINE 1% LOCAL 20 ML VIAL ONE (15:29)
[2024-10-25] MEDS: BUPIVACAINE 0.25% PF 30 ML VIAL ONE (15:29)
[2024-10-25] MEDS: VANCOMYCIN HCL 1000MG/20ML VIAL ONE (15:30)
[2024-10-25] MEDS: WATER, STERILE FOR INJ 10 ML VIAL ONE (15:30)
[2024-10-25] MEDS: fentaNYL citrate PF 100 MCG/2 ML VIAL ONE (15:31)
[2024-10-25] MEDS: ceFAZolin 330 MG/ML 1 GM VIAL ONE (15:31)
[2024-10-25] MEDS: methylPREDNISolone 125 MG/2 ML VIAL ONE (15:32)
[2024-10-25] MEDS: diphenhydrAMINE 50 MG/ML VIAL ONE (15:32)
[2024-10-25] MEDS: MIDAZOLAM HCL 5 MG/ML 1 ML VIAL ONE (15:32)
--- NOTE | 2024-10-25 18:20 | XRay Report ---
Chest radiograph, one view History: ICD placement Comparison: 10/23/2024 Findings: Single AP view of the chest performed. Left chest wall dual-lead AICD. Median sternotomy wires in place. No focal consolidation or pleural effusion. No pneumothorax. The cardiomediastinal silhouette is within normal limits. Normal pulmonary vascularity. No evidence for lymphadenopathy. No visualized bony or soft tissue abnormality. Impression: No pneumothorax Electronically signed by Connor He 10-25-2024 6:19 PM
--- NOTE | 2024-10-25 23:21 | Hospitalist Progress Note ---
Date of Service October 25, 2024 Assessment & Plan (1) SVT (supraventricular tachycardia): (2) Type 2 diabetes mellitus: (3) Chronic systolic CHF (congestive heart failure): (4) Obesity: (5) Hypertension: (6) Depression: Plan #SVT/ wide complex tachycardia/ s/p Ross Procedure/ persistanr atrial fibrillation Patient not taking Dig. Will place on amiodarone and metoprolol. stop dig and fluoxetine. HR appears to be controlled plan for defribillator today. #hypoxia/ acute hypoxic respiratory failure Unsure cause not responding to diuretics, nor does he appear to be volume overloaded ct chest did show pleural effusion, may need thoracocenthesis, however will try albumin and lasix first. creatinine is stable. #possible acute on Chronic systolic CHF (congestive heart failure): Known ejection fraction of 25%. Patient will need to have a defibrillator.. Monitor intake and output repeat x-ray with some pulmonary congestion, ordered lasix. His oxygen requiremenrt has fluctuated today from 2 liters to 6 liters. #Type 2 diabetes mellitus: ADA diet. Basal insulin therapy. Sliding scale coverage Admission and Anticipated Discharge Date Admission Date: October 21, 2024 Subjective 74 yo male reports no new symptoms Physical Exam Physical Exam: General-alert and oriented x3, no fever, no chills HEENT-head atraumatic and normocephalic, pupils equal and reactive to light, extraocular muscles intact Neck-no lymphadenopathy or thyromegaly, trachea midline Chest-diminished breath sounds bilaterally. Faint bibasilar inspiratory rales. No wheezing Cardiac-rapid rate, irregular rhythm consistent with atrial fibrillation. Normal S1 and S2 Abdomen-normal bowel sounds, no hepatosplenomegaly Extremities-chronic stasis dermatitis bilateral lower extremities below the knees with 1-2+ pitting edema Neuro-cranial nerves II through XII intact, motor and sensory function within normal limits, strength symmetrical, no focal deficits Psych-normal affect, normal mood Results & Data Results & Data Vital Signs (Past 12 Hours) Vital Signs Temp Pulse Pulse Resp BP BP Pulse Ox 10/25/24 20:16 75 10/25/24 20:15 10/25/24 20:00 36.6 C 51 L 14 135/65 93 10/25/24 17:09 36.4 C L 78 16 117/74 94 10/25/24 17:06 75 10/25/24 16:42 35.6 C L 76 16 117/76 96 10/25/24 16:25 71 16 115/68 97 10/25/24 16:00 75 16 112/70 96 10/25/24 15:41 76 16 110/70 95 10/25/24 15:21 52 L 10/25/24 13:55 59 L 16 112/72 96 10/25/24 12:00 Pulse Ox O2 Del Method O2 Del Method O2 Flow Rate 10/25/24 20:16 10/25/24 20:15 Nasal Cannula 2 10/25/24 20:00 Nasal Cannula 2 10/25/24 17:09 Nasal Cannula 2 10/25/24 17:06 10/25/24 16:42 Nasal Cannula 2 10/25/24 16:25 Room Air 10/25/24 16:00 Room Air 10/25/24 15:41 Room Air 10/25/24 15:21 10/25/24 13:55 Room Air 10/25/24 12:00 95 Room Air PG Care Time/CCT Total # of Minutes Spent Total Time Spent with Patient: Total time spent is greater than 50% in coordination of care (as documented) at patient's floor/unit and/or counseling patient: Coding Level of Care Code 16498 SUB INP/OBS CARE 3/50MIN Diagnoses SVT (supraventricular tachycardia) I47.10 Type 2 diabetes mellitus E11.9 Chronic systolic CHF (congestive heart failure) I50.22 Obesity E66.9 Essential hypertension I10 Hypertension type: essential hypertension Depression F32.9 (5) Hypertension Hypertension type: essential hypertension Qualified Code(s): I10 - Essential (primary) hypertension
--- NOTE | 2024-10-26 05:46 | Electrocardiogram Report ---
Test Reason : Blood Pressure : */* mmHG Vent. Rate : 61 BPM Atrial Rate : * BPM P-R Int : 248 ms QRS Dur : 148 ms QT Int : 486 ms P-R-T Axes : * -74 95 degrees QTcB Int : 489 ms Sinus rhythm with 1st degree A-V block Left axis deviation Left bundle branch block Abnormal ECG When compared with ECG of 23-Oct-2024 05:51, No significant change Confirmed by Quoc Kwon ([id number]) on 10/26/2024 5:45:33 AM Referred By: REFERRED SELF Confirmed By: Quoc Kwon
[2024-10-26 06:37] LABS: Hematocrit (blood only) 37.7 % (42.0-52.0); Hemoglobin 12.7 g/dl (14.0-18.0); Mean Corpuscular Hemoglobin 28.2 pg (25.0-34.0); Mean Corpuscular Hgb Conc 33.7 g/dL (32.0-36.0); Mean Corpuscular Volume 83.6 fL (80.0-100.0); Mean Platelet Volume 11.8 fL (9.4-12.4); Platelet Count 209 K/uL (130-400); RDW Coefficient of Variation 14.8 % (11.5-14.5); RDW Standard Deviation 44.6 fL (36.4-46.3); Red Blood Count 4.51 M/uL (4.70-6.10); White Blood Count 9.95 K/ul (4.8-10.8)
[2024-10-26 07:02] LABS: BUN Creatinine Ratio 40.9 (10-20); Calcium 8.9 mg/dl (8.6-10.3); Creatinine Clr Calc Pharmacy 88.6 ml/min; Potassium 4.8 mmol/L (3.5-5.1)
[2024-10-26] MEDS: LANTUS PER UNIT CHARGE SC SCH ×2 (08:48→20:56)
--- NOTE | 2024-10-26 09:39 | XRay Report ---
XR chest 2V PA/lateral CLINICAL HISTORY: hypoxia/ pleural effusion COMPARISON STUDY: 10/25/2024 FINDINGS: Stable CABG and pacemaker. Stable cardiomegaly with mild pulmonary vascular congestion. Sta ble small right pleural effusion. No pneumothorax. IMPRESSION: Stable exam. ACT 112: Negative or not required by law. Electronically signed by: Alvarez Hummel M.D. 10/26/2024 9:38 AM
[2024-10-26] MEDS: INSULIN HUMAN REGULAR PER UNIT 10 UNITS in SYRINGE 9.9 ML IV ONE (11:34)
--- NOTE | 2024-10-26 12:36 | Cardiology Progress Note ---
Date of Service October 26, 2024 Assessment & Plan (1) Wide-complex tachycardia: (2) Chronic systolic CHF (congestive heart failure): (3) LBBB (left bundle branch block): (4) Cardiomyopathy: (5) Status post Ross procedure: (6) Mild dilation of ascending aorta: Plan: 74-year-old male with known underlying longstanding valvular heart disease status post Ross procedure 1997 at [facility] (aortic valve replacement with pulmonary valve autograft, pulmonary valve replacement with homograft), chronic left bundle branch block, persistent atrial fibrillation and diffuse cardiomyopathy. Presents today with wide-complex tachycardia rate 225 bpm with symptoms of acute tachypalpitations and diaphoresis. Episode occurred during MRI Ultimately treated with synchronized cardioversion with conversion. -Although the presence of hemodynamically significant coronary artery disease not definitively excluded, history, presentation, echocardiogram findings consistent with dyssynchrony related cardiomyopathy in the setting of left bundle branch block. LVEF on echo 10/21/24: 20-25%, with abnormal septal motion consistent with left bundle branch block, severe global left ventricular hypokinesis otherwise, gradient across the prosthetic aortic valve within normal limits, LVEF 50% on outpatient echo 11/2023. Patient underwent implantation of [employer] biventricular AICD on 10/25/24. Post procedure chest X ray without pneumothorax , right pleural effusion improved in size. Plan: * Furosemide 40 mg IV x 1 now * Resume Eliquis 5 mg by mouth two times per day * Continue aspirin, rosuvastatin, Entresto, metoprolol succinate 100 mg twice daily, amiodarone (IV amiodarone earlier this hospital stay, now on oral 200 mg 3 times daily) with plans to reduced amiodarone dose to 200 mg two times per day at discharge. * Hold spironolactone due to mildly elevated potassium, 5.1 mmol/L on 10/25 down to 4.8 mmol/l. * Will arrange post device wound check and device check in outpatient clinic in 6-10 days. Admission and Anticipated Discharge Date Admission Date: October 21, 2024 Subjective Patient seen in cardiology follow up . Tolerated biventricular pacemaker / AICD well yesterday. Post procedure pain is well controlled. Denies orthopnea. Telemetry reveals ventricular paced rhythm in the 70s. Physical Exam Physical Exam: Temp Pulse Resp BP Pulse Ox O2 Del Method O2 Flow Rate 36.5 C 75 18 112/68 93 Room Air 0 10/26/24 11:38 10/26/24 11:38 10/26/24 11:38 10/26/24 11:38 10/26/24 11:38 10/26/24 11:38 10/26/24 08:00 General: no acute distress and stated age Eyes: conjunctiva are pink and non-injected, sclera clear Neck: normal jugular venous pulse, no hepatojugular reflux Chest: normal shape and normal respiratory effort -Left infraclavicular device pocket with wound dressing in place, no hematoma Lungs: clear to auscultation and percussion Cardiac Exam: - regular heart sounds, no murmurs, rubs, or gallops, no jugular venous distention Abdomen: abdomen soft, non-tender, no abnormal masses and no hepatosplenomegaly Musculoskeletal: no gait disturbance, no weakness Extremities: no edema and no cyanosis Neuro:awake, conversant, follows commands, no focal motor deficits Psych: appropriate affect and insight. Results & Data Vital Signs (Past 12 Hours) Vital Signs Temp Pulse Pulse Resp BP BP Pulse Ox 10/26/24 11:38 36.5 C 75 18 112/68 93 10/26/24 08:00 10/26/24 07:46 36.6 C 72 18 115/68 95 10/26/24 07:00 75 10/26/24 04:21 36.4 C L 74 18 121/68 98 O2 Del Method O2 Flow Rate 10/26/24 11:38 Room Air 10/26/24 08:00 Room Air 0 10/26/24 07:46 Room Air 10/26/24 07:00 10/26/24 04:21 Nasal Cannula 2 Laboratory Results Cardiac Enzymes 10/26/24 Range/Units 06:09 B-Natriuretic Peptide 1145 H (0-100) pg/ml Coagulation 10/26/24 Range/Units 06:09 B-Natriuretic Peptide 1145 H (0-100) pg/ml CBC 10/26/24 Range/Units 06:09 WBC 9.95 (4.8-10.8) K/ul RBC 4.51 L (4.70-6.10) M/uL Hgb 12.7 L (14.0-18.0) g/dl Hct 37.7 L (42.0-52.0) % Plt Count 209 (130-400) K/uL Comprehensive Metabolic Panel 10/26/24 Range/Units 06:09 Sodium 135 L (136-145) mmol/L Potassium 4.8 (3.5-5.1) mmol/L Chloride 102 (98-107) mmol/L Carbon Dioxide 26 (21-32) mmol/L BUN 38 H (6-23) mg/dl Creatinine 0.93 (0.6-1.4) mg/dl Glucose 290 H (70-99(Fasting)) mg/dl Calcium 8.9 (8.6-10.3) mg/dl Intake and Output 10/25/24 10/26/24 10/26/24 22:59 06:59 14:59 Intake Total 150 / 250 Output Total 700 / 2825 875 / 2825 Balance -700 / -2575 -725 / -2575 Intake: Oral 150 / 150 Output: Urine 700 / 2825 875 / 2825 Other: Weight 101.6 kg Weight Measurement Method Built in [facility]
[2024-10-26] MEDS: FUROSEMIDE 40 MG/4 ML VIAL IV ONE (14:20)
[2024-10-26] MEDS: POLYETHYLENE (MIRALAX) 17 GM PACK PO SCH (18:06)
--- NOTE | 2024-10-26 22:26 | Electrocardiogram Report ---
Test Reason : Blood Pressure : */* mmHG Vent. Rate : 75 BPM Atrial Rate : 75 BPM P-R Int : * ms QRS Dur : 130 ms QT Int : 450 ms P-R-T Axes : -37 118 -63 degrees QTcB Int : 502 ms Ventricular-paced rhythm Abnormal ECG When compared with ECG of 24-Oct-2024 06:30, Electronic ventricular pacemaker is now Present Confirmed by Quoc Kwon ([id number]) on 10/26/2024 10:25:38 PM Referred By: REFERRED SELF Confirmed By: Quoc Kwon
--- NOTE | 2024-10-26 23:05 | Hospitalist Progress Note ---
Date of Service October 26, 2024 Assessment & Plan (1) SVT (supraventricular tachycardia): (2) Type 2 diabetes mellitus: (3) Chronic systolic CHF (congestive heart failure): (4) Obesity: (5) Hypertension: (6) Depression: Plan #SVT/ wide complex tachycardia/ s/p Ross Procedure/ persistanr atrial fibrillation Patient not taking Dig. Will place on amiodarone and metoprolol. stop dig and fluoxetine. HR appears to be controlled S/P defibrillator placed by Cardiology as patient had severe cardiomyopathy as noted below #hypoxia/ acute hypoxic respiratory failure Unsure cause Initially not responding to diuretics, nor does he appear to be volume overloaded However ct chest did show pleural effusion, patient responded to lasix and albumin, will give an additional dose today. creatinine is stable. #possible acute on Chronic systolic CHF (congestive heart failure): Known ejection fraction of 25%. Patient will need to have a defibrillator.. Monitor intake and output repeat x-ray with some pulmonary congestion,as stated above repeat lasix and albumin. Now off oxygen and back to room air. #Type 2 diabetes mellitus: ADA diet. Basal insulin therapy. Sliding scale coverage Admission and Anticipated Discharge Date Admission Date: October 21, 2024 Subjective Patient reports doing well, less SOB. Physical Exam Physical Exam: General-alert and oriented x3, no fever, no chills HEENT-head atraumatic and normocephalic, pupils equal and reactive to light, extraocular muscles intact Neck-no lymphadenopathy or thyromegaly, trachea midline Chest-diminished breath sounds bilaterally. Faint bibasilar inspiratory rales. No wheezing Cardiac-rapid rate, irregular rhythm consistent with atrial fibrillation. Normal S1 and S2 Abdomen-normal bowel sounds, no hepatosplenomegaly Extremities-chronic stasis dermatitis bilateral lower extremities below the knees with 1-2+ pitting edema Neuro-cranial nerves II through XII intact, motor and sensory function within n ormal limits, strength symmetrical, no focal deficits Psych-normal affect, normal mood Results & Data Results & Data Vital Signs (Past 12 Hours) Vital Signs Temp Pulse Pulse Resp BP Pulse Ox O2 Del Method 10/26/24 18:58 36.6 C 75 18 114/67 95 Room Air 10/26/24 18:43 76 10/26/24 15:20 36.5 C 75 18 105/67 96 Room Air 10/26/24 12:00 06/17/25 11:38 36.5 C 75 18 112/68 93 Room Air O2 Del Method 10/26/24 18:58 10/26/24 18:43 10/26/24 15:20 10/26/24 12:00 Room Air 10/26/24 11:38 PG Care Time/CCT Total # of Minutes Spent Total Time Spent with Patient: Total time spent is greater than 50% in coordination of care (as documented) at patient's floor/unit and/or counseling patient: Coding Level of Care Code 33973 SUB INP/OBS CARE 3/50MIN Diagnoses SVT (supraventricular tachycardia) I47.10 Type 2 diabetes mellitus E11.9 Chronic systolic CHF (congestive heart failure) I50.22 Obesity E66.9 Essential hypertension I10 Hypertension type: essential hypertension Depression F32.9 (5) Hypertension Hypertension type: essential hypertension Qualified Code(s): I10 - Essential (primary) hypertension
[2024-10-27 06:30] LABS: Hematocrit (blood only) 38.5 % (42.0-52.0); Hemoglobin 13.1 g/dl (14.0-18.0); Mean Corpuscular Hemoglobin 28.4 pg (25.0-34.0); Mean Corpuscular Volume 83.3 fL (80.0-100.0); Mean Platelet Volume 11.5 fL (9.4-12.4); Platelet Count 238 K/uL (130-400); RDW Coefficient of Variation 15.3 % (11.5-14.5); RDW Standard Deviation 46.5 fL (36.4-46.3); Red Blood Count 4.62 M/uL (4.70-6.10); White Blood Count 10.49 K/ul (4.8-10.8)
[2024-10-27 06:45] LABS: BUN Creatinine Ratio 42.7 (10-20); Calcium 9.1 mg/dl (8.6-10.3); Creatinine Clr Calc Pharmacy 100.2 ml/min; Potassium 4.7 mmol/L (3.5-5.1)
--- NOTE | 2024-10-27 10:05 | Cardiology Progress Note ---
Date of Service October 27, 2024 Assessment & Plan (1) Wide-complex tachycardia: (2) Chronic systolic CHF (congestive heart failure): (3) LBBB (left bundle branch block): (4) Cardiomyopathy: (5) Status post Ross procedure: (6) Mild dilation of ascending aorta: Plan: 74-year-old male with known underlying longstanding valvular heart disease status post Ross procedure 1997 at [facility] (aortic valve replacement with pulmonary valve autograft, pulmonary valve replacement with homograft), chronic left bundle branch block, persistent atrial fibrillation and diffuse cardiomyopathy. Presents today with wide-complex tachycardia rate 225 bpm with symptoms of acute tachypalpitations and diaphoresis. Episode occurred during MRI Ultimately treated with synchronized cardioversion with conversion. -Although the presence of hemodynamically significant coronary artery disease not definitively excluded, history, presentation, echocardiogram findings consistent with dyssynchrony related cardiomyopathy in the setting of left bundle branch block. LVEF on echo 10/21/24: 20-25%, with abnormal septal motion consistent with left bundle branch block, severe global left ventricular hypokinesis otherwise, gradient across the prosthetic aortic valve within normal limits, LVEF 50% on outpatient echo 11/2023. Patient underwent implantation of [email or web address] biventricular AICD on 10/25/24. Post procedure chest X ray without pneumothorax , right pleural effusion improved in size. Plan: * Hold loop diuretic 10/27/24, consider transitioning to oral furosemide 20 mg daily 10/28. * Resumed Eliquis 5 mg by mouth two times per day evening of 10/26 * Continue aspirin, rosuvastatin, metoprolol succinate 100 mg twice daily, amiodarone (IV amiodarone earlier this hospital stay, now on oral 200 mg 3 times daily) with plans to reduced amiodarone dose to 200 mg two times per day at discharge. * Resume Entresto and spironolactone, which were held for hyperkalemia, with am dose due 10/27 * Request for post device wound check and device check in outpatient clinic in 6-10 days placed in outpatient chart. * Stable from cardiac perspective for transfer to rehab pending acceptance. Angus Oliveira Do Admission and Anticipated Discharge Date Admission Date: October 21, 2024 Subjective Patient seen in follow up. Feeling well. Denies shortness of breath or orthopnea. Telemetry reveals ventricular paced rhythm in the 70s. 9 beat run of nonsustained ventricular tachycardia observed on 10/27/24 at 2:18 am during sleep. Review of Systems Review of Systems: All systems reviewed & are unremarkable except as noted in HPI & below Physical Exam Physical Exam: Temp Pulse Resp BP Pulse Ox O2 Del Method O2 Flow Rate 36.4 C L 75 18 111/73 97 Room Air 0 10/27/24 07:10 10/27/24 07:10 10/27/24 07:10 10/27/24 07:10 10/27/24 07:10 10/27/24 07:10 10/26/24 08:00 General: no acute distress and stated age Eyes: conjunctiva are pink and non-injected, sclera clear Neck: normal jugular venous pulse, no hepatojugular reflux Chest: normal shape and normal respiratory effort -Left infraclavicular device pocket with wound dressing in place, no hematoma Lungs: clear to auscultation and percussion Cardiac Exam: - regular heart sounds, no murmurs, rubs, or gallops, no jugular venous distention Abdomen: abdomen soft, non-tender, no abnormal masses and no hepatosplenomegaly Musculoskeletal: no gait disturbance, no weakness Extremities: no edema and no cyanosis Neuro:awake, conversant, follows commands, no focal motor deficits Psych: appropriate affect and insight. Results & Data Laboratory Results Cardiac Enzymes 10/27/24 Range/Units 06:02 B-Natriuretic Peptide 1123 H (0-100) pg/ml Coagulation 10/27/24 Range/Units 06:02 B-Natriuretic Peptide 1123 H (0-100) pg/ml CBC 10/27/24 Range/Units 06:02 WBC 10.49 (4.8-10.8) K/ul RBC 4.62 L (4.70-6.10) M/uL Hgb 13.1 L (14.0-18.0) g/dl Hct 38.5 L (42.0-52.0) % Plt Count 238 (130-400) K/uL Comprehensive Metabolic Panel 10/27/24 Range/Units 06:02 Sodium 137 (136-145) mmol/L Potassium 4.7 (3.5-5.1) mmol/L Chloride 103 (98-107) mmol/L Carbon Dioxide 28 (21-32) mmol/L BUN 35 H (6-23) mg/dl Creatinine 0.82 (0.6-1.4) mg/dl Glucose 185 H (70-99(Fasting)) mg/dl Calcium 9.1 (8.6-10.3) mg/dl Intake and Output 10/26/24 10/27/24 10/27/24 22:59 06:59 14:59 Intake Total 200 / 680 Output Total 1127 / 1503 376 / 1503 Balance -1127 / -823 -176 / -823 Intake: Oral 200 / 680 Output: Urine 1126 / 1501 375 / 1501 # Bowel Movements 1 / 2 1 / 2 Other: # Unmeasured Voids 400 Weight 101.2 kg Weight Measurement Method Built in [facility]
--- NOTE | 2024-10-27 10:19 | Pharmacy Report ---
Pharmacy Glycemic Short Note 2 - Date of Service October 27, 2024 - Glycemic Short BSG Results (Last 24 hours): 10/26/24 10/26/24 10/26/24 11:00 11:02 11:03 Glucose POC Glucose 380 H* 420 H* 413 H* 10/26/24 10/26/24 10/26/24 14:29 15:57 19:50 Glucose POC Glucose 252 H 195 H 275 H 10/27/24 10/27/24 06:02 07:09 Glucose 185 H POC Glucose 176 H OUTPATIENT ANTIDIABETIC REGIMEN: * Toujeo 64 units BID, Novolog 20 units with breakfast, 30 units with supper (reduced to 10 units if more activity/not eating as much as typical, or hold if not eating, Semaglutide 0.25 mg /week HbA1c: 8.9% 08/11/24 ASSESSMENT: 10/27: * Enmanuel received 157 units of insulin yesterday (60 were basal and 10 IV regular) * Fasting BSG this AM acceptable, will aim for the same basal dosage today with adjustments for BSGs below goal or elevated. * NovoLog carbohydrate ratio tightened yesterday afternoon, will trend today and make further adjustments tomorrow if indicated. 10/25 * Blood sugars elevated yesterday (ranging 188-265 mg/dL) * Received 84 units of insulin (35 units of basal and 49 units of prandial/correctional bolus) * Fasting blood sugar elevated this morning at 269 mg/dL * NPO for EP lab today 10/22 * Enmanuel received 34units of insulin yesterday while admitted (20 units were basal and 14 units were bolus) * Fasting BSG was 171mg/dL this morning. The Lantus was increased to 30 units SQ BID. * Lunch BSG was still above the goal range, so the CR of the bolus insulin was tightened. 10/21 * Patient admitted following cardioversion in the ED. BSG elevated 317 mg/dL initially. * Reviewed recent endocrine visit, anticipate lower needs in hospital d/t diet changes * Will start with weight based stress of 2 novolog, basal --> review trend for adjustments PLAN FOR INPATIENT GLYCEMIC CONTROL: * Hold outpatient diabetes medications * Basal insulin * Lantus 45 units SC this AM * Lantus 0-15-25 units SC this evening based on BSG (see eMAR for additional details) * Bolus insulin * NovoLog per scale ACHS or Q6hrs while NPO * Goal Range: Low 110 mg/dL - High 140 mg/dL * Correction Factor: 15 mg/dL/unit * Nutritional / Prandial insulin per carb ratio of 1 unit per 3 grams CHO consumed
[2024-10-27] MEDS: ACETAMINOPHEN 500 MG TAB PO PRN (20:51)
--- NOTE | 2024-10-27 23:40 | Hospitalist Progress Note ---
Date of Service October 27, 2024 Assessment & Plan (1) SVT (supraventricular tachycardia): (2) Type 2 diabetes mellitus: (3) Chronic systolic CHF (congestive heart failure): (4) Obesity: (5) Hypertension: (6) Depression: Plan #SVT/ wide complex tachycardia/ s/p Ross Procedure/ persistanr atrial fibrillation Patient not taking Dig. Now on amiodarone and metoprolol. stop dig and fluoxetine. HR appears to be controlled S/P defibrillator placed by Cardiology as patient had severe cardiomyopathy as noted below #hypoxia/ acute hypoxic respiratory failure Unsure cause Initially not responding to diuretics, nor does he appear to be volume overl oaded However ct chest did show pleural effusion, patient responded to lasix and albumin x2 Now euvolemic. creatinine is stable. #possible acute on Chronic systolic CHF (congestive heart failure): Known ejection fraction of 25%. Patient will need to have a defibrillator.. Monitor intake and output repeat x-ray with some pulmonary congestion,as stated above repeat lasix and albumin. Now off oxygen and back to room air. #Type 2 diabetes mellitus: ADA diet. Basal insulin therapy. Sliding scale coverage Pending rehab Admission and Anticipated Discharge Date Admission Date: October 21, 2024 Subjective Patient reports feeling well. He states he is at baseline. Physical Exam Physical Exam: General-alert and oriented x3, no fever, no chills HEENT-head atraumatic and normocephalic, pupils equal and reactive to light, extraocular muscles intact Neck-no lymphadenopathy or thyromegaly, trachea midline Chest-diminished breath sounds bilaterally. Faint bibasilar inspiratory rales. No wheezing Cardiac-rapid rate, irregular rhythm consistent with atrial fibrillation. Normal S1 and S2 Abdomen-normal bowel sounds, no hepatosplenomegaly Extremities-chronic stasis dermatitis bilateral lower extremities below the knees with 1-2+ pitting edema Neuro-cranial nerves II through XII intact, motor and sensory function within normal limits, strength symmetrical, no focal deficits Psych-normal affect, normal mood Results & Data Results & Data Vital Signs (Past 12 Hours) Vital Signs Temp Pulse Resp BP BP Pulse Ox O2 Del Method 10/27/24 22:43 36.7 C 72 18 105/67 92 Room Air 10/27/24 19:27 36.7 C 74 18 113/66 94 Room Air 06/18/25 18:00 Room Air 10/27/24 15:51 36.4 C L 74 18 107/63 93 Room Air 10/27/24 13:18 Room Air PG Care Time/CCT Total # of Minutes Spent Total Time Spent with Patient: Total time spent is greater than 50% in coordination of care (as documented) at patient's floor/unit and/or counseling patient: Coding Level of Care Code 49329 SUB INP/OBS CARE 3/50MIN Diagnoses SVT (supraventricular tachycardia) I47.10 Type 2 diabetes mellitus E11.9 Chronic systolic CHF (congestive heart failure) I50.22 Obesity E66.9 Essential hypertension I10 Hypertension type: essential hypertension Depression F32.9 (5) Hypertension Hypertension type: essential hypertension Qualified Code(s): I10 - Essential (primary) hypertension
[2024-10-28 06:17] LABS: Hematocrit (blood only) 42.7 % (42.0-52.0); Hemoglobin 14.1 g/dl (14.0-18.0); Mean Corpuscular Hemoglobin 28.2 pg (25.0-34.0); Mean Corpuscular Volume 85.4 fL (80.0-100.0); Mean Platelet Volume 11.3 fL (9.4-12.4); Platelet Count 245 K/uL (130-400); RDW Coefficient of Variation 15.6 % (11.5-14.5); White Blood Count 8.15 K/ul (4.8-10.8)
[2024-10-28 06:36] LABS: Albumin Globulin Ratio 1.5 (0.9-2); Calcium 9.5 mg/dl (8.6-10.3); Creatinine Clr Calc Pharmacy 95.9 ml/min; Globulin 2.8 gm/dl (2.5-4.0); Potassium 4.8 mmol/L (3.5-5.1); Total Protein 6.9 gm/dl (6.0-8.3)
[2024-10-28] MEDS: LANTUS PER UNIT CHARGE SC SCH ×2 (08:29→20:48)
--- NOTE | 2024-10-28 09:59 | Discharge Summary ---
Discharge Summary Date of Service October 28, 2024 Principal Dx & Hospital Course #1 = Principal Diagnosis (1) SVT (supraventricular tachycardia): (2) Type 2 diabetes mellitus: (3) Chronic systolic CHF (congestive heart failure): (4) Obesity: (5) Hypertension: (6) Depression: Plan #SVT/ wide complex tachycardia/ s/p Ross Procedure/ persistanr atrial fibrillation Patient not taking Dig. Now on amiodarone and metoprolol. stop dig and fluoxetine. HR appears to be controlled S/P defibrillator placed by Cardiology as patient had severe cardiomyopathy as noted below #hypoxia/ acute hypoxic respiratory failure Unsure cause Initially not responding to diuretics, nor does he appear to be volume overloaded However ct chest did show pleural effusion, patient responded to lasix and albumin x2 Now euvolemic. creatinine is stable. #possible acute on Chronic systolic CHF (congestive heart failure): Known ejection fraction of 25%. Patient will need to have a defibrillator.. Monitor intake and output repeat x-ray with some pulmonary congestion,as stated above repeat lasix and albumin. Now off oxygen and back to room air. #Type 2 diabetes mellitus: ADA diet. Basal insulin therapy. Sliding scale coverage D/C home Admission HPI Per Admitting Provider 74-year-old male with PMH of atrial fibirillation with 2 admissions on 05/04 for uncontrolled atrial fibrillation and systolic CHF. Patient went to get imaging for his lower back when he noticed palpitations and SOB. He is also has generalized weakness. Patient reports being noncompliant with his digoxin. In the ED, patient found to be in Wide complex tachycardia. Patient was placed on IV amiodarone. Other medications will remain the same. Will obtain a Dig level. Will hold Dig as placed on amiodarone He denies chest pain. Patient states he does not take dig because he cannot afford it. Discharge Exam GENERAL APPEARANCE NAD, activity normal for age, well developed/ well nourished, no cyanosis, pallor, or diaphoresis. EYES lids/conjunctiva normal. EARS/NOSE/THROAT Mucous membranes moist, nares normal, lips/teeth normal uvula midline without oral pharyngeal erythema, exudate or swelling TMs normal bilaterally. No lymphangitis/lymphedema. HEAD/NECK normocephalic atraumatic, no facial trauma, neck is supple. RESPIRATORY respiratory effort normal, speaks in full sentences, no tripod position, no accessory muscle use. Lungs clear to auscultation without rhonchi, wheezes, rales CARDIAC Regular rate and rhythm, no edema. ABDOMINAL Soft, ND/NT. No evidence of fluid wave. No pulsatile masses on exam, rebound tenderness, Lema sign or pain over Mcburney's point. MUSCLES/EXTREMITIES No abnormal range of motion, no swelling. SKIN Warm, pink and dry. No rashes, dermatoses, petechiae or lesions. NEUROLOGICAL Speech is clear and appropriate. Normal level of consciousness. Gait and coordination are normal. 5/5 strength in all extremities. PSYCH Normal mood and affect. Judgement/competence is appropriate Discharge Plan Discharge Items Patient Disposition: Home - Self-Care Reason For Visit: ATRIAL FIBRILLATION Discharge Diagnosis: SVT, AFib Condition on Discharge: Fair Activity: As commented below Activity Comment: do not lift the left elbow over the left shoulder for 1 month Lifting: No more than 10 pounds Lifting Comment: do not lift more than 10 pounds with the left arm for 2 weeks Bathing: Keep incision dry Bathing Comment: keep dressing on & dry until wound check Non-emergency contact: Primary Care Provider Follow-up/Referrals: Ada Bowen CRNP [Nurse Practitioner] - 11/03/24 10:00 am (Ada Bowen is a Nurse Practitioner who works with Dr. Saucedo. Please arrive 15 min. before your scheduled appointment. Thank you!) Diet: Carb Consistent or DM2 Addtl Attending Provider Instructions: Device and wound check at [facility] in 10-14 days Pending Studies at Discharge: No Stand-Alone Forms: [facility] Sm[facility] Cess[facility] Medications and DC Order Prescriptions: New amiodarone 200 mg Tablet 200 mg PO TIDM Qty: 90 0RF Continued (DME) blood sugar diagnostic Strip See Dose Instructions .ROUTE .MEDSUPPLY Qty: 450 3RF Rx Instructions: Test blood sugars five times daily or as directed ergocalciferol (vitamin D2) 1,250 mcg (50,000 unit) capsule 50,000 unit PO WEEKLY Qty: 12 3RF Rx Instructions: saturdays gabapentin 300 mg capsule 300 mg PO BID 90 Days Qty: 180 3RF pantoprazole 40 mg tablet,delayed release (DR/EC) 40 mg PO QAM Qty: 90 3RF insulin aspart U-100 [Novolog FlexPen U-100 Insulin] 100 unit/mL (3 mL) insulin pen See Rx Instructions SQ UD MDD 120 units 90 Days Qty: 120 0RF Rx Instructions: max of 40 units with meals; reduce to 20 units if smaller meals; HOLD if blood sugar is low; TDD 120 units Jardiance 10 mg tablet 10 mg PO DAILY Rx Instructions: Started by cardiology 06/29/2024 rosuvastatin 10 mg tablet 10 mg PO DAILY Rx Instructions: Started by cardiology 12/31/2023 magnesium oxide 400 mg magnesium capsule 400 mg PO DAILY Rx Instructions: Started by cardiology 06/16/2024 spironolactone 25 mg tablet 12.5 mg PO DAILY Rx Instructions: Started by cardiology 06/01/2024 Entresto 24-26 mg tablet 1 tab PO BID Rx Instructions: Started by cardiology 06/07/2024 digoxin 250 mcg (0.25 mg) tablet 250 mcg PO 4XWK Patient Comments: Star Rx Instructions: 250 mcg orally Take one tab every Friday, Friday, Friday, and Friday; Started by cardiology 06/30/2024 Ozempic 0.25 mg or 0.5 mg (2 mg/3 mL) pen injector 0.5 mg subcut WK Rx Instructions: Friday (DME) pen needle, diabetic [BD Ultra-Fine Short Pen Needle] 31 gauge x 5/16" needle See Dose Instructions .ROUTE .MEDSUPPLY Qty: 30 Rx Instructions: Use to inject insulin four times a day (DME) lancets [OneTouch UltraSoft Lancets] [facility] [place] See Dose Instructions .ROUTE .MEDSUPPLY Qty: 50 Rx Instructions: test blood glucose four times a day (DME) FreeStyle Veronika 2 Sensor Kit See Rx Instructions .Route Qty: 2 5RF Rx Instructions: Change every 14 days metoprolol succinate 100 mg tablet extended release 24 hr 100 mg PO BID Qty: 60 0RF Eliquis 5 mg Tablet 5 mg PO BID Qty: 60 5RF aspirin 81 mg Tablet,Delayed Release (Dr/Ec) 81 mg PO QPM furosemide [Lasix] 40 mg tablet 20 mg PO QAM insulin glargine U-300 conc [Toujeo Max U-300 SoloStar] 300 unit/mL (3 mL) insulin pen 60 - 65 unit subcut BID Discontinued digoxin 125 mcg (0.125 mg) tablet 125 mcg PO 3XWK Rx Instructions: 125 mcg orally Take one tablet every Friday, , and Friday; Started by cardiology 06/30/2024 fluoxetine 40 mg capsule 40 mg PO DAILY Qty: 90 3RF losartan 25 mg Tablet 12.5 mg PO QPM Qty: 20 0RF Discharge Orders: Discharge Order (Routine); Ordered 10/28/24 Ordered By: Aubrey Moore Admission Data Admit Date/Time: 10/21/24 12:46 Attending Provider: Aubrey Moore Admit Provider: Waylon Stearns Primary Care Provider: Connor Saucedo Other Providers: Waylon Stearns; Michael Sevilla; [facility]; Janeth Chavarria at [facility] Stay Data Consultations 10/21/24 12:45 ED Decision to Admit Stat 10/21/24 12:46 Consult Cardiology Routine Procedures Performed Operation Date: 10/25/24 15:00 Actual Procedures p ICD Insertion Single or Dual - Tracy Garcia DO s Venogram Extremity Unilateral - Tracy Garcia DO Diagnostic Imagining Performed 10/24/24 16:10 CT for pulmonary embolism PE [CT angio chest PE protocol] Urgent 10/25/24 07:15 EP Lab Images for PACS ONCE Pending Results Patient Have Any Pending Studies at Discharge: No Discharge Instructions Given to Patient (Per Discharging Provider) Device and wound check at [facility] in 10-14 days Total Time Total Time Spent Total Time Spent (In Minutes): 50 Coding Level of Care Code 00424 INP/OBS DISCH >30 MIN Diagnoses SVT (supraventricular tachycardia) I47.10 Type 2 diabetes mellitus E11.9 Chronic systolic CHF (congestive heart failure) I50.22 Obesity E66.9 Essential hypertension I10 Hypertension type: essential hypertension Depression F32.9
--- NOTE | 2024-10-28 12:10 | Cardiology Progress Note ---
Date of Service October 28, 2024 Assessment & Plan (1) Wide-complex tachycardia: (2) Chronic systolic CHF (congestive heart failure): (3) LBBB (left bundle branch block): (4) Cardiomyopathy: (5) Status post Ross procedure: (6) Mild dilation of ascending aorta: Plan: 74-year-old male with known underlying longstanding valvular heart disease status post Ross procedure 1997 at [facility] (aortic valve replacement with pulmonary valve autograft, pulmonary valve replacement with homograft), chronic left bundle branch block, persistent atrial fibrillation and diffuse cardiomyopathy. Presents today with wide-complex tachycardia rate 225 bpm with symptoms of acute tachypalpitations and diaphoresis. Episode occurred during MRI Ultimately treated with synchronized cardioversion with conversion. -Although the presence of hemodynamically significant coronary artery disease not definitively excluded, history, presentation, echocardiogram findings consistent with dyssynchrony related cardiomyopathy in the setting of left bundle branch block. LVEF on echo 10/21/24: 20-25%, with abnormal septal motion consistent with left bundle branch block, severe global left ventricular hypokinesis otherwise, gradient across the prosthetic aortic valve within normal limits, LVEF 50% on outpatient echo 11/2023. Patient underwent implantation of [employer] biventricular AICD on 10/25/24. Post procedure chest X ray without pneumothorax , right pleural effusion improved in size. Plan: * Patient going home instead of rehab. Outpatient wound check and follow up visit arranged. Office to contact patient. Discharge on the following medications: New medication: Amiodarone 200 mg 2 times per day with meals Discontinue the following medications: Discontinue all digoxin. Patient is no longer on digoxin and the amiodarone replaces digoxin. Discontinue fluoxetine 40 mg daily. Discontinue losartan 12.5 mg daily. Hold spironolactone 12.5 mg daily until reassessed by cardiology Continue the following medications: ergocalciferol (vitamin D2) 1,250 mcg (50,000 unit) capsule 50,000 unit PO WEEKLY Qty: 12 3RF saturdays gabapentin 300 mg capsule pantoprazole 40 mg tablet,delayed release (DR/EC) 40 mg PO QAM insulin aspart U-100 [Novolog FlexPen U-100 Insulin] 100 unit/mL (3 mL) insulin pen See Rx Instructions SQ UD MDD 120 units 90 Days Qty: 120 0RF Rx Instructions: max of 40 units with meals; reduce to 20 units if smaller meals; HOLD if blood sugar is low; TDD 120 units Jardiance 10 mg tablet 10 mg PO DAILY Rx Instructions: Started by cardiology 06/29/2024 rosuvastatin 10 mg tablet 10 mg PO DAILY Rx Instructions: Started by cardiology 12/31/2023 magnesium oxide 400 mg magnesium capsule 400 mg PO DAILY Rx Instructions: Entresto 24-26 mg tablet 1 tab PO BID -Reduce dose to 1 tablet by mouth once daily until addressed at cardiology follow up. Ozempic 0.25 mg or 0.5 mg (2 mg/3 mL) pen injector 0.5 mg subcut WK Rx Instructions: Friday metoprolol succinate 100 mg tablet extended release 24 hr 100 mg PO BID Qty: 60 0RF Eliquis 5 mg Tablet 5 mg PO BID Qty: 60 5RF aspirin 81 mg Tablet,Delayed Release (Dr/Ec) 81 mg PO QPM furosemide [Lasix] 40 mg tablet 20 mg PO QAM insulin glargine U-300 conc [Toujeo Max U-300 SoloStar] 300 unit/mL (3 mL) insulin pen 60 - 65 unit subcut BID Angus Oliveira Do Admission and Anticipated Discharge Date Admission Date: October 21, 2024 Subjective Patient seen in cardiology follow up. He denies chest pain or shortness of breath. States his breathing is much improved compared to prior to admission. Telemetry reveals ventricular paced rhythm in the 70s. One 6 beat run of NSVT observed on 10/27/24 at 19:19. Physical Exam Physical Exam: Temp Pulse Resp BP Pulse Ox O2 Del Method O2 Flow Rate 36.3 C L 75 18 109/72 95 Room Air 0 10/28/24 11:28 10/28/24 11:28 10/28/24 11:28 10/28/24 11:28 10/28/24 11:28 10/28/24 11:10/26/24 08:00 General: no acute distress and stated age Eyes: conjunctiva are pink and non-injected, sclera clear Neck: normal jugular venous pulse, no hepatojugular reflux Chest: normal shape and normal respiratory effort -Left infraclavicular device pocket with wound dressing in place, no hematoma Lungs: clear to auscultation and percussion Cardiac Exam: - regular heart sounds, no murmurs, rubs, or gallops, no jugular venous distention Abdomen: abdomen soft, non-tender, no abnormal masses and no hepatosplenomegaly Musculoskeletal: no gait disturbance, no weakness Extremities: no edema and no cyanosis Neuro:awake, conversant, follows commands, no focal motor deficits Psych: appropriate affect and insight. Results & Data Vital Signs (Past 12 Hours) Vital Signs Temp Pulse Resp BP BP Pulse Ox O2 Del Method 10/28/24 11:28 36.3 C L 75 18 109/72 95 Room Air 10/28/24 10:02 76 117/77 10/28/24 07:58 97/62 L 10/28/24 07:28 36.5 C 75 18 91/59 L 95 Room Air 10/28/24 03:32 36.5 C 75 18 100/65 93 Room Air Laboratory Results Temp Pulse Resp BP Pulse Ox O2 Del Method O2 Flow Rate 36.3 C L 75 18 109/72 95 Room Air 0 10/28/24 11:28 10/28/24 11:28 10/28/24 11:28 10/28/24 11:28 10/28/24 11:28 10/28/24 11:28 10/26/24 08:00
[2024-10-28] MEDS: AMIODARONE 200 MG TAB PO SCH (17:21)
[2024-10-29 07:19] VITALS: RESP 19; TEMP 98.4; O2SAT 95
[2024-10-29] MEDS: GLUCOSE 40% GEL 15 GM TUBE PO PRN (07:36)
[2024-10-29] MEDS: LANTUS PER UNIT CHARGE SC SCH (08:47)
[2024-10-29] MEDS: VALSARTAN/SACUBITRIL 26/24MG TAB PO SCH (08:52)
[2024-10-29] MEDS: EMPAGLIFLOZIN 10 MG TAB PO SCH (08:53)
--- NOTE | 2024-10-29 11:01 | Hospitalist Progress Note ---
Date of Service October 29, 2024 Assessment & Plan (1) SVT (supraventricular tachycardia): (2) Type 2 diabetes mellitus: (3) Chronic systolic CHF (congestive heart failure): (4) Obesity: (5) Hypertension: (6) Depression: Plan #SVT/ wide complex tachycardia/ s/p Ross Procedure/ persistanr atrial fibrillation Patient not taking Dig. Now on amiodarone and metoprolol. stop dig and fluoxetine. HR appears to be controlled S/P defibrillator placed by Cardiology as patient had severe cardiomyopathy as noted below #hypoxia/ acute hypoxic respiratory failure Unsure cause Initially not responding to diuretics, nor does he appear to be volume overl oaded However ct chest did show pleural effusion, patient responded to lasix and albumin x2 Now euvolemic. creatinine is stable. #possible acute on Chronic systolic CHF (congestive heart failure): Known ejection fraction of 25%. Patient will need to have a defibrillator.. Monitor intake and output repeat x-ray with some pulmonary congestion,as stated above repeat lasix and albumin. Now off oxygen and back to room air. #Type 2 diabetes mellitus: ADA diet. Basal insulin therapy. Sliding scale coverage D/C to rehab today 10/29 Admission and Anticipated Discharge Date Admission Date: October 21, 2024 Subjective Awaiting discharge to rehab today. Review of Systems Review of Systems: CONST: Negative for fever, body aches and chills. HENT: Negative for neck pain/stiffness, headache, congestion, sore throat, swelling. EYES: Negative for discharge/pain or vision changes. RESP: Negative for cough/hemoptysis and shortness of breath. CV: Negative chest pain, difficulty breathing, palpitations. ABD: Negative pain, nausea, vomiting. : Negative increase frequency, dysuria, blood in urine or stool. MUSC: Negative for muscle aches, edema. SKIN: Negative rash, lesions/sores. NEURO: Negative headache, dizziness, weakness. Physical Exam Physical Exam: GENERAL APPEARANCE NAD, activity normal for age, well developed/ well nourished, no cyanosis, pallor, or diaphoresis. EYES lids/conjunctiva normal. EARS/NOSE/THROAT Mucous membranes moist, nares normal, lips/teeth normal uvula midline without oral pharyngeal erythema, exudate or swelling TMs normal bilaterally. No lymphangitis/lymphedema. HEAD/NECK normocephalic atraumatic, no facial trauma, neck is supple. RESPIRATORY respiratory effort normal, speaks in full sentences, no tripod position, no accessory muscle use. Lungs clear to auscultation without rhonchi, wheezes, rales CARDIAC Regular rate and rhythm, no edema. ABDOMINAL Soft, ND/NT. No evidence of fluid wave. No pulsatile masses on exam, rebound tenderness, Lema sign or pain over Mcburney's point. MUSCLES/EXTREMITIES No abnormal range of motion, no swelling. SKIN Warm, pink and dry. No rashes, dermatoses, petechiae or lesions. NEUROLOGICAL Speech is clear and appropriate. Normal level of consciousness. Gait and coordination are normal. 5/5 strength in all extremities. PSYCH Normal mood and affect. Judgement/competence is appropriate Results & Data Results & Data Vital Signs (Past 12 Hours) Vital Signs Temp Pulse Resp BP Pulse Ox O2 Del Method 10/29/24 07:18 36.9 C 74 19 119/66 95 Room Air 10/29/24 02:43 36.5 C 75 18 109/74 92 Room Air PG Care Time/CCT Total # of Minutes Spent Total Time Spent with Patient: Total time spent is greater than 50% in coordination of care (as documented) at patient's floor/unit and/or counseling patient: Coding Level of Care Code 20743 SUB INP/OBS CARE 2/35MIN Diagnoses SVT (supraventricular tachycardia) I47.10 Type 2 diabetes mellitus E11.9 Chronic systolic CHF (congestive heart failure) I50.22 Obesity E66.9 Essential hypertension I10 Hypertension type: essential hypertension Depression F32.9 (5) Hypertension Hypertension type: essential hypertension Qualified Code(s): I10 - Essential (primary) hypertension
[2024-10-29 11:53] VITALS: BP 95/60; PULSE 86
--- NOTE | 2024-11-03 12:00 | Operative Report ---
Post Operative Report DATE OF PROCEDURE: 10/25/2024 PREOPERATIVE DIAGNOSES:sustained VT, NICM, Chronic heart failure with preserved EF-NYHA Class II, permanent AF POSTOPERATIVE DIAGNOSIS: Same PROCEDURE: A BiV rate responsive implantable cardiac defibrillator along with a peripheral venogram under fluoroscopic guidance. SURGEON: Tracy Garcia DO ASSISTANTS: None. ANESTHESIA: Monitored conscious sedation administered under my supervision by Cathie Key. Start time 14:11, end time 15:23, a total of 2 mg of Versed and 50 mcg of fentanyl. INTRAVENOUS FLUIDS: 0 mL. CONTRAST: 12 mL. ANTIBIOTICS: 2 grams of Ancef. ADDITIONAL MEDICATIONS: None BLOOD LOSS: 50 mL. URINE OUTPUT: Not applicable. SPECIMENS: None. FINDINGS: See below. DRAINS: None. COMPLICATIONS: None. CONDITION: Stable. 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 Pt was admitted to [facility] after having sustained symptomatic VT requiring a cardioversion. He was recommended an ICD prior to discharge; given his marked bradycardia a biV was recommended to avoid RV apical pacing. A formal shared decision making process was performed with Enmanuel Salcedo at the office visit utilizing the IDECIDE ICD evidence based tool from [employer] for Patient Centered Decisions. The discussion that followed was collaborative: detailing the information, risks, and benefits provided by the tool. We also discussed the values and preferences of Enmanuel Salcedo to build a consensus regarding the preferred treatment plan. A decision was reached to proceed with BiV ICD. CONSENT: Consent was obtained prior to the patient going into the electrophysiology lab. The patient was informed of the risks, benefits, and alternatives to the procedure. Risks include, but not limited to, sudden cardiac , cardiac arrhythmias, cerebrovascular accident, myocardial infarction, injury to his blood vessels, chamber of the heart and lung, bleeding and infection. The patient understood these risks and agreed to the procedure as planned. Informed consent was obtained. DESCRIPTION OF PROCEDURE: The patient was brought into electrophysiology lab in a fasting state. He was connected to continuous cardiac monitoring. A timeout was performed to ensure the patient's identity and procedure correctly. He was prepped and draped in the left infraclavicular space in normal surgical standard fashion. Monitored conscious sedation was given throughout the procedure for the patient's comfort level. Linn precautions were maintained throughout the procedure. Prophylactic antibiotics were given prior to incision. A 20 mL of 1% lidocaine and bupivacaine mixture were given in the left deltopectoral groove. An incision was made in the left deltopectoral groove. Blunt dissection was performed down to the pectoralis muscle. Then, using blunt dissection over the pectoralis muscle within the pectoral fascia, a pacemaker pocket was created. Then, a peripheral venogram was performed to identify the axillary vein. Venous axillary access was obtained through a needlestick without any problems. A guidewire was inserted without any resistance. A 9- Ecuadorean sheath was inserted over the more lateral guidewire without any resistance. Dilator was removed and a second guidewire was inserted through the sheath to allow for retained venous access. Then a 7 Ecuadorean sheath was advanced over one of the more lateral guidewires. The guidewire and dilator were removed. Then the defibrillator lead was advanced through the 7 Ecuadorean sheath into the RV and positioned into the RV apex under fluoroscopic guidance. The screw was extended. There was adequate pacing and sensing. There was no diaphragmatic stimulation with high out put pacing. The 7 Ecuadorean sheath was peeled away and the lead was fixated to the pectoralis muscle using 0 silk suture. Then a 9 Ecuadorean sheath was inserted over the otherl guidewire. The guidewire and dilator were removed. Then, the CPS Apple Picker 3D extra long large sheath was inserted through the 9-Ecuadorean sheath over a Glidewire into the right ventricle. The Glidewire and dilator were removed. Then, the left bundle lead was advanced through the sheath. I then moved the camera to CONTRERAS 30 and came down about 2 cm into the mid septum in a line that would extend out to the apex and then started coming on pacing. Once I found an area where I had a nice W formed pace complex in my lead V1, I then moved the camera to [place] 40. Then the helix was extended into the septum. Then the helix locking tool was placed. Then the lead was screwed further into the septum while pacing by giving slow clockwise turns. The paced complex changed to a nice R' in V1 and the pacing stim to peak QRS in V6 was good. I then gave contrast through the sheath to see how far the lead was into the septum and then I slit the CPS Apple Picker 3D extra long large sheath under fluoroscopic guidance. The 9-Ecuadorean sheath around the left bundle lead was peeled away and the lead was fixated to pectoralis muscle using 0 silk suture. The pocket was flushed with copious amounts of vancomycin and saline wash and inspected for hemostasis. The leads were then attached to the pulse generator making sure the pins were in appropriate position, passed set screws, and set screws were all tightened. Pulse generator was then placed in the pocket, making sure the leads were lying flat beneath the device. The incision was closed in a 3-layer fashion using 2-0 Vicryl interrupted suture, followed by 3-0 Vicryl interrupted suture, followed by 4-0 Monocryl running stitch. Then a primaseal dressing was placed EQUIPMENT: 1. Pulse generator is a Brantley [place] HF Model Number [id number] SN: [id number] 2. Defibrillator Lead; Brantley SJM Durata [id number] SN: [id number] 4. Left bundle lead, Brantley Ultipace [id number] SN: [id number] INTRAPROCEDURAL FINDINGS: 1. Defibrillator Lead: R waves 8.0 mV; impedance 540 ohms; threshold 0.4V @ 0.5ms 2. Left bundle lead, R waves 8.3 millivolts, impedance 630 ohms, threshold 0.8 volts at 0.5 milliseconds. FINAL MEASUREMENTS THROUGH THE DEVICE: 1.Defibrillator Lead: R waves 7.2 mV; impedance 500 ohms; threshold 0.5V @ 0. 5ms 2. Left bundle lead, impedance 590 ohms, threshold 0.75 volts at 0.5 milliseconds. FINAL PARAMETERS: VVIR 70/130, right ventricular (defibrillator lead) amplitude 3.5 volts, pulse width 0.5 milliseconds, sensitivity 3.0mV. Left bundle lead amplitude 3.5 volts, pulse width 0.5 milliseconds, IMPRESSION: Successful Bi Ventricular rate responsive implantable cardiac defibrillator under fluoroscopic guidance along with peripheral venogram all under fluoroscopic guidance secondary sustained VT, NICM, Chronic heart failure with preserved EF-NYHA Class II, permanent AF PLAN: Monitor the patient post-procedure. A 12-lead ECG, chest x-ray. He is not to lift the left elbow or left shoulder for 1 month. He cannot lift more than 10 pounds with the left arm for 2 weeks. He is to keep the dressing on and dry until his wound check next week.
== END 2024-10-29 13:43 | disposition home or self-care (01) | DRG 276 ==
LOC: ED 10:51 → 2S 12:46 → SUATTDRO 12:46 → 2S 14:40
PROC: EPB.ICD (2024-10-25 15:00)